=== PATIENT | male | born 1955 | race Caucasian/White ===

== ENCOUNTER → 2020-12-03 16:57 | Outpatient (CLI) | payer OTHER, SELFPAY ==
--- NOTE | 2020-12-03 17:00 | DI.RAD.S_ITS ---
PROCEDURE: XR KNEE RT 3V INDICATIONS: Bilateral hip pain, knee pain TECHNIQUE: 3 views of the knee were acquired. COMPARISON: [facility], CR, XR KNEE LT 3V, 12/03/2020, 17:32. FINDINGS: Bones: No fractures or dislocations. No suspicious bony lesions. Our orthopedic screws noted stabilizing the tibial tuberosity with evidence of healed fragmentation. Soft tissues: No joint effusion. No suspicious soft tissue calcifications. IMPRESSION: No acute findings. Internal fixation screws associated with the tibial tuberosity. No evidence of hardware failure loosening. Dictated by: Elbert Beckham M.D. on 12/04/2020 at 11:43 Approved by: Elbert Beckham M.D. on 12/04/2020 at 11:45
--- NOTE | 2020-12-03 17:00 | DI.RAD.S_ITS ---
PROCEDURE: XR SHOULDER RT MIN 2V INDICATIONS: Bilateral hip pain TECHNIQUE: 3 views of the shoulder were acquired. COMPARISON: None. FINDINGS: Bones: No fractures or dislocations. No suspicious bony lesions. Visualized ribs appear intact. Soft tissues: No suspicious soft tissue calcifications. IMPRESSION: Unremarkable right shoulder radiographs Dictated by: Elbert Beckham M.D. on 12/04/2020 at 11:50 Approved by: Elbert Beckham M.D. on 12/04/2020 at 11:51
--- NOTE | 2020-12-03 17:00 | DI.RAD.S_ITS ---
PROCEDURE: XR KNEE LT 3V INDICATIONS: Bilateral hip pain TECHNIQUE: 3 views of the knee were acquired. COMPARISON: None. FINDINGS: Bones: No fractures or dislocations. No suspicious bony lesions. Soft tissues: No joint effusion. No suspicious soft tissue calcifications. IMPRESSION: Unremarkable left knee radiographs Dictated by: Elbert Beckham M.D. on 12/04/2020 at 11:38 Approved by: Elbert Beckham M.D. on 12/04/2020 at 11:41
--- NOTE | 2020-12-03 17:00 | DI.RAD.S_ITS ---
PROCEDURE: XR HIP W PEL IF DONE NAVARRO MIN 4V INDICATIONS: Bilateral hip pain TECHNIQUE: AP pelvis with lateral view(s) of the both hip(s). COMPARISON: None. FINDINGS: Bones: No fractures or dislocations. Pelvic ring appears intact. No suspicious bony lesions. Degenerative changes noted lower lumbar spine Soft tissues: The visualized bowel gas pattern is normal. No suspicious soft tissue calcifications. IMPRESSION: Mild degenerative change lower lumbar spine. Otherwise unremarkable bilateral hip radiographs Dictated by: Elbert Beckham M.D. on 12/04/2020 at 11:42 Approved by: Elbert Beckham M.D. on 12/04/2020 at 11:43
--- NOTE | 2020-12-03 17:00 | DI.RAD.S_ITS ---
PROCEDURE: XR LUMBAR SPINE 2-3V INDICATIONS: chronic back pain TECHNIQUE: 2 views of the lumbar spine were acquired. COMPARISON: None. FINDINGS: Bones: Vertebral body height and alignment is maintained. There is disc space narrowing and sclerotic facet joints particularly noted L4-5 and L5-S1 with small anterior osteophyte. Soft tissues: Overlying bowel gas pattern is normal. No suspicious soft tissue calcifications. Atherosclerotic calcification in the abdominal aorta noted without evidence of aneurysm. Moderate fecal debris throughout the colon. IMPRESSION: Lower lumbar spine degenerative disc disease and arthropathy Moderate fecal debris throughout the colon Dictated by: Elbert Beckham M.D. on 12/04/2020 at 11:46 Approved by: Elbert Beckham M.D. on 12/04/2020 at 11:50
[2020-12-03 17:44] LABS: Hemoglobin A1C% w Est Avg Glu 8.5 % (4.0-6.0)
== END ==
PROVIDERS: PCP Family Medicine; Referring Provider Family Medicine; Visit Provider Family Medicine
DX: G89.29 Other chronic pain (principal); M25.551 Pain in right hip; M25.552 Pain in left hip; M54.5 Low back pain; E11.9 Type 2 diabetes mellitus without complications; Z79.4 Long term (current) use of insulin
CPT/HCPCS: 36415; 72100; 73030; 73522; 73562; 83036

== ENCOUNTER → 2020-12-21 15:52 | Outpatient (CLI) | payer OTHER, SELFPAY | PROVIDERS: PCP Family Medicine; Referring Provider Physician Assistant; Visit Provider Physician Assistant | DX: R30.0 Dysuria (principal) | CPT/HCPCS: 87077; 87086; 87185; 87186 ==

== ENCOUNTER 2020-12-25 07:25 | Emergency (ER) | payer OTHER, SELFPAY ==
[2020-12-25] VITALS (11 sets, daily range): BP systolic 147–183; BP diastolic 71–95; PULSE 72–86; RESP 14–18; TEMP 36.6; O2SAT 95–98; BMI 32.1
--- NOTE | 2020-12-25 07:48 | ED.GENADULT ---
HPI - General Adult General Chief complaint: Urogenital-Male Stated complaint: UTI DX 12/21, CIPRO DOESN'T SEEM TO BE HELPING Time Seen by Provider: 12/25/20 07:33 Source: patient Mode of arrival: Ambulatory Limitations: no limitations History of Present Illness HPI narrative: Patient is a 65-year-old male who was sent over from the walk-in clinic for evaluation of continued urinary symptoms. Approximately 4 days ago the patient was seen in the walk-in clinic for urinary frequency, urgency, burning. He was diagnosed with the urinary tract infection. He is placed on Cipro to take 2 times a day for a week. Today would be day 3 of his medications. He return to the walk-in clinic today because he has had continued symptoms. He states that his back discomfort in his frequency and urgency are not necessarily new nor getting worse but just have not changed. He is however somewhat nauseous today. He has felt fevers but has never actually taken his temperature. He has not thrown up. Related Data Home Medications Medication Instructions Recorded Confirmed aspirin 81 mg tablet 81 mg PO DAILY 10/16/20 12/21/20 blood-glucose meter #1 ea 10/16/20 12/21/20 multivitamin 1 tab PO QAM 10/16/20 12/21/20 pen needle, diabetic 33 gauge x #100 ea 10/16/20 12/21/2012/14 Previous Rx's Medication Instructions Recorded cholecalciferol (vitamin D3) 25 25 mcg PO DAILY #90 cap 10/16/20 mcg (1,000 unit) capsule glimepiride 4 mg tablet 4 mg PO QAM #90 tab 10/16/20 hydrochlorothiazide 12.5 mg capsule 12.5 mg PO QAM #90 cap 10/16/20 losartan 50 mg tablet 50 mg PO DAILY #90 tab 10/16/20 metformin 1,000 mg tablet 1,000 mg PO BID #180 tab 10/16/20 rosuvastatin 20 mg tablet 20 mg PO DAILY #90 tab 10/16/20 sildenafil 50 mg tablet 50 mg PO DAILY PRN #30 tab 10/16/20 zolpidem 10 mg tablet 10 mg PO BEDTIME PRN #30 tab 10/16/20 canagliflozin 300 mg tablet 300 mg PO DAILY #90 tab 11/21/20 insulin glargine U-300 conc 300 See Rx Instructions .ROUTE 12/11/20 unit/mL (1.5 mL) subcutaneous pen .COMPLEX #4.5 ml ciprofloxacin HCl 500 mg tablet 500 mg PO Q12H 7 Days #14 tab 12/22/20 potassium chloride 20 meq PO DAILY 5 Days #5 tab 12/25/20 Allergies Allergy/AdvReac Type Severity Reaction Status Date / Time Penicillins Allergy Intermediate Verified 12/21/20 14:34 Review of Systems Constitutional Constitutional: Reports fever(s) (Subjective) Cardiovascular Cardiovascular: Reports system reviewed and no additional complaints, except as documented Respiratory Respiratory: Reports system reviewed and no additional complaints, except as documented Gastrointestinal Gastrointestinal: Reports abdominal pain, Reports nausea and Denies vomiting Genitourinary Genitourinary: Reports urinary frequency, Reports urinary incontinence and Reports urinary urgency Genitourinary: Reports urinary frequency, Reports urinary incontinence and Reports urinary urgency Musculoskeletal Musculoskeletal: Reports back pain Integumentary/Breasts Skin/Breast: Reports system reviewed and no additional complaints, except as documented Neurologic Neurologic: Reports system reviewed and no additional complaints, except as documented Hematologic/Lymphatic On Anticoagulants: No Allergic/Immunologic Allergic/Immunologic: Reports system reviewed and no additional complaints, except as documented Patient History Medical History Bilateral hip pain Chronic back pain Hyperlipidemia Hypertension Vitamin D deficiency Social History Smoking Status: Never smoker Smoking Status: Never smoker alcohol intake frequency: holidays/special occasions only Substance Use Type: does not use Exam Initial Vital Signs Initial Vital Signs: Vital Signs Temperature 97.9 F 12/25/20 07:33 Pulse Rate 76 12/25/20 07:33 Respiratory Rate 18 12/25/20 07:33 Blood Pressure 160/95 H 12/25/20 07:33 Pulse Oximetry 98 12/25/20 07:33 Const General: cooperative and comfortable Limitations: mental status not altered HENMT Head: normal to inspection and normocephalic Resp Effort & Inspection: normal respiratory effort Cardio Rate: regular rate GI Inspection: non-distended Palpation: soft and tender (Suprapubic) Skin Lesions: no lesions Rashes: no rashes Neuro General: patient alert and patient awake Cognition: normal cognition Speech: speech normal Extrem General: capillary refill normal Psych Appearance: grossly normal and well kempt Course Orders Ordered: ED Orders 12/25/20 12:08 Basic Metabolic Panel Stat Discontinued Medications POTASSIUM CHLORIDE IN WATER (Potassium Cl 10 Meq/100 Ml Margarita) 10 meq in 100 mls @ 100 mls/hr IV Q1H ZEENAT Stop: 12/25/20 11:29 Last Infusion: 12/25/20 11:58 Dose: 0 mls/hr Documented by: Admin: 12/25/20 10:47 Dose: 100 mls/hr Documented by: Infusion: 12/25/20 10:44 Dose: 0 mls/hr Documented by: Admin: 12/25/20 09:43 Dose: 100 mls/hr Documented by: MELONIE Potassium Chloride (Potassium Chloride 10 Meq Tab) 30 meq PO NOW ONE Stop: 12/25/20 09:17 Last Admin: 12/25/20 09:42 Dose: 30 meq Documented by: MELONIE Vital Signs Vital signs: Vital Signs - 8 hr 12/25/20 11:30 12/25/20 12:00 12/25/20 12:30 Pulse Rate 86 83 83 Respiratory Rate 16 14 Blood Pressure 154/76 H 156/74 H 152/71 H Pulse Oximetry 95 96 95 Medical Decision Making Medical Records Medical records reviewed: Yes I reviewed the patient's medical records. Lab Data Lab results reviewed: Yes I reviewed the patient's lab results. Result diagrams: 12/25/20 07:36 12/25/20 12:08 Labs: Lab Results 12/25/20 12/25/20 12/25/20 Range/Units 07:36 07:36 08:40 WBC 11.7 H (4.5-11.0) X10^3/uL RBC 4.23 L (4.5-5.9) X10^6/uL Hgb 12.1 L (13.5-17.5) g/dL Hct 35.1 L (41-53) % MCV 83.0 (80-100) fL MCH 28.7 (26-34) PG MCHC 34.6 (30-36) % RDW 13.7 (11.6-14.8) % Plt Count 343 (150-400) X10^3/uL Neut % (Auto) 81.7 H (50-75) % Lymph % (Auto) 8.3 L (25-40) % Jerome % (Auto) 9.0 (3-14) % Eos % (Auto) 0.6 L (2-4) % Baso % (Auto) 0.4 (0-2) % Neut # (Auto) 9500 H (3632-8319) /uL Lymph # (Auto) 1000 L (0469-4122) /uL Jerome # (Auto) 1000 H (0-900) /uL Eos # (Auto) 100 (0-450) /uL Baso # (Auto) 0 (0-100) /uL Sodium 118 L* 120 L (137-145) mmol/L Potassium 2.8 L 2.6 L* (3.4-5.1) mmol/L Chloride 82 L 82 L (98-107) mmol/L Carbon Dioxide 24 29 (22-32) mmol/L BUN 9 10 (9-20) mg/dL Creatinine 0.60 L 0.58 L (0.66-1.25) mg/dL Estimated GFR > 60.0 > 60.0 (>60) mL/min BUN/Creatinine Ratio 15.0 17.2 (6-22) Glucose 140 H 127 H (80-110) mg/dL Calcium 8.3 L 8.3 L (8.4-10.2) mg/dL 05/27/21 Range/Units 12:08 WBC (4.5-11.0) X10^3/uL RBC (4.5-5.9) X10^6/uL Hgb (13.5-17.5) g/dL Hct (41-53) % MCV (80-100) fL MCH (26-34) PG MCHC (30-36) % RDW (11.6-14.8) % Plt Count (150-400) X10^3/uL Neut % (Auto) (50-75) % Lymph % (Auto) (25-40) % Jerome % (Auto) (3-14) % Eos % (Auto) (2-4) % Baso % (Auto) (0-2) % Neut # (Auto) (6020-7618) /uL Lymph # (Auto) (5686-8892) /uL Jerome # (Auto) (0-900) /uL Eos # (Auto) (0-450) /uL Baso # (Auto) (0-100) /uL Sodium 126 L (137-145) mmol/L Potassium 3.2 L (3.4-5.1) mmol/L Chloride 86 L (98-107) mmol/L Carbon Dioxide 30 (22-32) mmol/L BUN 10 (9-20) mg/dL Creatinine 0.72 (0.66-1.25) mg/dL Estimated GFR > 60.0 (>60) mL/min BUN/Creatinine Ratio 13.9 (6-22) Glucose 148 H (80-110) mg/dL Calcium 8.7 (8.4-10.2) mg/dL MDM Narrative Medical decision making narrative: Patient arrived with similar symptoms that he had a couple days ago. Review of his urine culture shows that the medicine that he is currently on should be appropriate. We did perform a bladder scan which showed approximately 1000 cc. A Petty catheter was placed and ultimately resulted in approximately 4500 cc of urine. Patient states that he did feel better afterwards. Patient was hyponatremic and also hypokalemic. Upon further evaluation it appears that the patient has been drinking a tremendous amount of water recently to try to continue to urinate in to help his symptoms. I suspect that this is the reason that he was hyponatremic. He was kept in the emergency department. His potassium was replaced. He was given salt containing foods and resultant sodium increased to 126. His potassium increased as well. Patient would like to go home. We did discuss the risk of this given his sodium but I have a high suspicion that it was water that he has been drinking which cause the decrease. I did discuss the case with his primary provider who ordered labs for the patient tomorrow to recheck the sodium and potassium. Will also send home with oral potassium. Patient was informed of the need for the lab drawn tomorrow he expressed understanding. He was given strict return precautions. He will also follow-up with his primary doctor regarding the urinary retention. We will keep him on his current course of antibiotics. He expressed understanding and agreement this plan Discharge Plan Departure Patient Disposition: Home Clinical Impression: Acute urinary retention, Urinary tract infection, Hyponatremia, Hypokalemia Instructions: How to Care for Your Petty Catheter -- Male, DI for Urinary Retention in Men Activity Restrictions/Additional Instructions: Continue with the antibiotics that you are taking. Your primary doctor ordered labs for further evaluation of your sodium and potassium. You can come to the hospital tomorrow sometime before noon and have these drawn. You should also be receiving a call from your primary doctor's office for a follow-up. Return to the emergency department for any new or worsening symptoms. Prescriptions: New potassium chloride 20 mEq tablet extended release 20 meq PO DAILY 5 Days Qty: 5 RF: 0 No Action Invokana 300 mg tablet 300 mg PO DAILY Qty: 90 RF: 3 insulin glargine U-300 conc [[place] SoloStar U-300 Insulin] 300 unit/mL (1.5 mL) insulin pen See Rx Instructions .ROUTE .COMPLEX Qty: 4.5 RF: 0 ciprofloxacin HCl 500 mg tablet 500 mg PO Q12H 7 Days Qty: 14 RF: 0 aspirin 81 mg tablet 81 mg PO DAILY RF: 0 multivitamin Tablet 1 tab PO QAM RF: 0 (DME) blood-glucose meter Kit See Rx Instructions .ROUTE .MEDSUPPLY Qty: 1 RF: 0 (DME) Comfort EZ Pen [place] 33 gauge x 5/16 needle See Rx Instructions .ROUTE .MEDSUPPLY Qty: 100 RF: 0 cholecalciferol (vitamin D3) 25 mcg (1,000 unit) capsule 25 mcg PO DAILY Qty: 90 RF: 3 glimepiride 4 mg tablet 4 mg PO QAM Qty: 90 RF: 3 hydrochlorothiazide 12.5 mg capsule 12.5 mg PO QAM Qty: 90 RF: 3 losartan 50 mg tablet 50 mg PO DAILY Qty: 90 RF: 3 metformin 1,000 mg tablet 1,000 mg PO BID Qty: 180 RF: 3 rosuvastatin 20 mg tablet 20 mg PO DAILY Qty: 90 RF: 3 sildenafil 50 mg tablet 50 mg PO DAILY PRN (Reason: sexual activity) Qty: 30 RF: 3 zolpidem 10 mg tablet 10 mg PO BEDTIME PRN (Reason: insomnia) Qty: 30 RF: 3 Referrals: Jeffery Schaefer MD [Primary Care Provider] -
[2020-12-25 07:59] LABS: Add Manual Diff / Slide Review NO; Basophils Absolute Auto 0 /uL (0-100); Basophils Percent Auto 0.4 % (0-2); Eosinophils Absolute Auto 100 /uL (0-450); Eosinophils Percent Auto 0.6 % (2-4); Hematocrit 35.1 % (41-53); Hemoglobin 12.1 g/dL (13.5-17.5); Lymphocytes Absolute Auto 1000 /uL (1100-4500); Lymphocytes Percent Auto 8.3 % (25-40); Mean Corpuscular HGB Conc 34.6 % (30-36); Mean Corpuscular Hemoglobin 28.7 PG (26-34); Monocytes Absolute Auto 1000 /uL (0-900); Neutrophils Absolute Auto 9500 /uL (1500-7000); Neutrophils Percent Auto 81.7 % (50-75); Platelet Count 343 X10^3/uL (150-400); Red Blood Cell Count 4.23 X10^6/uL (4.5-5.9); Red Cell Distribution Width 13.7 % (11.6-14.8); White Blood Cell Count 11.7 X10^3/uL (4.5-11.0)
[2020-12-25 08:00] LABS: HEMOLYSIS < 15 (0-50); Potassium 2.8 mmol/L (3.4-5.1)
[2020-12-25 08:01] LABS: Blood Urea Nitrogen 9 mg/dL (9-20); Calcium 8.3 mg/dL (8.4-10.2); Carbon Dioxide 24 mmol/L (22-32); Chloride 82 mmol/L (98-107); Estimated Glomerular Filt Rate > 60.0 mL/min (>60); Glucose 140 mg/dL (80-110)
[2020-12-25 08:07] LABS: Sodium 118 mmol/L (137-145)
[2020-12-25 09:04] LABS: BUN Creatinine Ratio 17.2 (6-22); Blood Urea Nitrogen 10 mg/dL (9-20); Calcium 8.3 mg/dL (8.4-10.2); Carbon Dioxide 29 mmol/L (22-32); Chloride 82 mmol/L (98-107); Estimated Glomerular Filt Rate > 60.0 mL/min (>60); Glucose 127 mg/dL (80-110); HEMOLYSIS < 15 (0-50); Sodium 120 mmol/L (137-145)
[2020-12-25 09:11] LABS: Potassium 2.6 mmol/L (3.4-5.1)
[2020-12-25] MEDS: POTASSIUM CHLORIDE 10 MEQ TAB 30 MEQ PO (09:42)
[2020-12-25] MEDS: POTASSIUM CHLORIDE IN WATER 10 MEQ/100 ML PIGGYBACK 100 MEQ IV ×2 (09:43→10:47)
--- NOTE | 2020-12-25 10:16 | PC.NURSE ---
pt voided 300 cc of clear urine prior to bladder scan. bladder scan showed >999 cc of urine. placed conn cath and 2000 cc immediately drained out, conn bag emptied. additional 2250 cc of clear urine emptied out of bag. total of 4550cc so far.
--- NOTE | 2020-12-25 12:00 | PC.NURSE ---
Flushed left hand IV after potassium infusion and found bruising and small infiltration. No redness noted. mild pain at site. IV discontinued.
[2020-12-25 12:27] LABS: BUN Creatinine Ratio 13.9 (6-22); Blood Urea Nitrogen 10 mg/dL (9-20); Calcium 8.7 mg/dL (8.4-10.2); Carbon Dioxide 30 mmol/L (22-32); Chloride 86 mmol/L (98-107); Estimated Glomerular Filt Rate > 60.0 mL/min (>60); Glucose 148 mg/dL (80-110); HEMOLYSIS < 15 (0-50); Potassium 3.2 mmol/L (3.4-5.1); Sodium 126 mmol/L (137-145)
== END 2020-12-25 13:26 | disposition home or self-care (01) ==
PROVIDERS: Emergency Provider Emergency Medicine; PCP Family Medicine
DX: R33.8 Other retention of urine (principal); N39.0 Urinary tract infection, site not specified; E87.1 Hypo-osmolality and hyponatremia; E87.6 Hypokalemia; R50.9 Fever, unspecified; R11.0 Nausea; M54.9 Dorsalgia, unspecified
CPT/HCPCS: 36415; 51702; 51798; 80048; 85025; 87040; 96365; 96366; 99284

== ENCOUNTER → 2020-12-26 07:40 | Outpatient (CLI) | payer OTHER, SELFPAY ==
[2020-12-26 08:07] LABS: Add Manual Diff / Slide Review NO; Basophils Absolute Auto 100 /uL (0-100); Eosinophils Absolute Auto 100 /uL (0-450); Eosinophils Percent Auto 1.5 % (2-4); Hematocrit 38.6 % (41-53); Hemoglobin 13.2 g/dL (13.5-17.5); Lymphocytes Absolute Auto 1500 /uL (1100-4500); Mean Corpuscular HGB Conc 34.1 % (30-36); Mean Corpuscular Volume 85.1 fL (80-100); Monocytes Absolute Auto 1000 /uL (0-900); Monocytes Percent Auto 10.9 % (3-14); Neutrophils Absolute Auto 6600 /uL (1500-7000); Neutrophils Percent Auto 70.6 % (50-75); Platelet Count 449 X10^3/uL (150-400); Red Blood Cell Count 4.54 X10^6/uL (4.5-5.9); White Blood Cell Count 9.4 X10^3/uL (4.5-11.0)
[2020-12-26 08:08] LABS: Alanine Aminotransferase 59 IU/L (<50); Albumin 3.9 g/dL (3.5-5.0); Albumin Globulin Ratio 1.1 (1.0-2.8); Alkaline Phosphatase 90 U/L (38-126); Aspartate Aminotransferase 38 IU/L (17-59); BUN Creatinine Ratio 17.9 (6-22); Bilirubin Total 0.4 mg/dL (0.2-1.3); Blood Urea Nitrogen 15 mg/dL (9-20); Calcium 9.2 mg/dL (8.4-10.2); Carbon Dioxide 30 mmol/L (22-32); Chloride 98 mmol/L (98-107); Estimated Glomerular Filt Rate > 60.0 mL/min (>60); Globulin 3.5 g/dL (1.7-4.1); Glucose 178 mg/dL (80-110); HEMOLYSIS < 15 (0-50); Potassium 3.6 mmol/L (3.4-5.1); Sodium 139 mmol/L (137-145); Total Protein 7.4 g/dL (6.3-8.2)
[2020-12-26 08:17] LABS: Hemoglobin A1C% w Est Avg Glu 8.5 % (4.0-6.0)
[2020-12-26 08:39] LABS: Prostate Specific Antigen Scrn 31.6 ng/mL (0.1-4.0)
== END ==
PROVIDERS: PCP Family Medicine; Referring Provider Family Medicine; Visit Provider Family Medicine
DX: E87.1 Hypo-osmolality and hyponatremia (principal); E87.6 Hypokalemia; N39.0 Urinary tract infection, site not specified; E11.9 Type 2 diabetes mellitus without complications; Z79.4 Long term (current) use of insulin; Z12.5 Encounter for screening for malignant neoplasm of prostate
CPT/HCPCS: 36415; 80053; 83036; 85025; G0103

== ENCOUNTER → 2021-02-28 10:30 | Outpatient (CLI) | payer OTHER, SELFPAY ==
[2021-02-28 12:17] LABS: Prostate Specific Antigen 2.59 ng/mL (0.10-4.00)
== END ==
PROVIDERS: PCP Family Medicine; Referring Provider Specialist; Visit Provider Specialist
DX: R39.9 Unspecified symptoms and signs involving the genitourinary system (principal)
CPT/HCPCS: 36415; 84153

== ENCOUNTER → 2021-03-18 20:02 | Outpatient (CLI) | payer OTHER, SELFPAY ==
[2021-03-18 20:30] LABS: COVID19 -Nasal RAPID Negative (Negative)
== END ==
PROVIDERS: PCP Family Medicine; Visit Provider Nurse Practitioner
DX: Z20.822 Contact with and (suspected) exposure to COVID-19 (principal)
CPT/HCPCS: 87635

== ENCOUNTER → 2021-06-02 17:55 | Outpatient (CLI) | payer OTHER, SELFPAY ==
[2021-06-02 18:47] LABS: COVID19 -Nasal RAPID Negative (Negative)
== END ==
PROVIDERS: PCP Family Medicine; Referring Provider Nurse Practitioner Family; Visit Provider Nurse Practitioner Family
DX: Z87.440 Personal history of urinary (tract) infections (principal); Z20.822 Contact with and (suspected) exposure to COVID-19
CPT/HCPCS: 87077; 87086; 87186; 87635

== ENCOUNTER → 2021-06-03 10:48 | Outpatient (CLI) | payer OTHER, SELFPAY ==
[2021-06-03 12:02] LABS: Hemoglobin A1C% w Est Avg Glu 7.6 % (4.0-6.0)
[2021-06-03 12:49] LABS: Alanine Aminotransferase 21 IU/L (<50); Albumin 4.1 g/dL (3.5-5.0); Albumin Globulin Ratio 1.4 (1.0-2.8); Alkaline Phosphatase 70 U/L (38-126); Aspartate Aminotransferase 18 IU/L (17-59); BUN Creatinine Ratio 15.5 (6-22); Bilirubin Total 1.1 mg/dL (0.2-1.3); Blood Urea Nitrogen 13 mg/dL (9-20); Carbon Dioxide 21 mmol/L (22-32); Chloride 96 mmol/L (98-107); Cholesterol 112 mg/dL (140-199); Estimated Glomerular Filt Rate > 60.0 mL/min (>60); Globulin 2.9 g/dL (1.7-4.1); Glucose 108 mg/dL (80-110); HDL Cholesterol 54 mg/dL (40-60); HEMOLYSIS < 15 (0-50); LDL Cholesterol Calculated 40 mg/dL (<100); Potassium 3.6 mmol/L (3.4-5.1); Sodium 133 mmol/L (137-145); Triglycerides 92 mg/dL (35-150)
[2021-06-03 13:20] LABS: Prostate Specific Antigen 12.6 ng/mL (0.10-4.00)
== END ==
PROVIDERS: PCP Family Medicine; Referring Provider Specialist; Visit Provider Specialist
DX: E11.9 Type 2 diabetes mellitus without complications (principal); E78.5 Hyperlipidemia, unspecified; I10 Essential (primary) hypertension; R97.20 Elevated prostate specific antigen [PSA]
CPT/HCPCS: 36415; 80053; 80061; 83036; 84153

== ENCOUNTER → 2021-06-11 17:18 | Outpatient (CLI) | payer OTHER, SELFPAY ==
[2021-06-13 09:48] LABS: Hepatitis B Surf Ab Qualitativ Reactive (.)
== END ==
PROVIDERS: PCP Family Medicine; Referring Provider Family Medicine; Visit Provider Family Medicine
DX: E11.9 Type 2 diabetes mellitus without complications (principal)
CPT/HCPCS: 36415; 86706

== ENCOUNTER → 2021-10-27 17:14 | Outpatient (CLI) | payer OTHER, SELFPAY | PROVIDERS: PCP Family Medicine; Referring Provider Specialist; Visit Provider Specialist | DX: Z12.11 Encounter for screening for malignant neoplasm of colon (principal) | CPT/HCPCS: 36415; 84153 ==

== ENCOUNTER → 2021-12-15 09:05 | Outpatient (CLI) | payer OTHER, SELFPAY ==
[2021-12-15 11:21] LABS: COVID19 -Nasal RAPID Negative (Negative)
== END ==
PROVIDERS: PCP Family Medicine; Visit Provider Surgery
DX: Z20.822 Contact with and (suspected) exposure to COVID-19 (principal); Z01.812 Encounter for preprocedural laboratory examination
CPT/HCPCS: 87635; C9803

== ENCOUNTER 2021-12-16 08:00 | Day surgery (SDC) | payer OTHER, SELFPAY ==
--- NOTE | 2021-12-16 | PATH_ITS ---
[facility] Accession Number: [id number] . 01 Material submitted: . colon - TRANSERSE COLON POLYP . 01 Diagnosis: Transverse Colon, Polyp, Biopsy: Tubular adenoma. MRV 12/18/2021 1115 Local . 01 Electronically signed: . Lanny Ibrahim MD, Pathologist NPI- [id number] . 01 Gross description: . TRANSERSE COLON POLYP: Received in formalin are multiple fragment(s) of epperson, soft tissue measuring 2.7 x 1.5 x 0.1 cm in aggregate submitted entirely in 1 cassette(s) /CPE 12/17/2021 0830 Local . 01 Pathologist provided ICD-10: D12.3 . 01 CPT . 887518 Specimen Comment: A courtesy copy of this report has been sent to [phone] Performed at: 01 [facility] [address] [place] [address], [place], [place] [id number] MD aPtrick Victoria MD Phone: [phone]
[2021-12-16 08:13] VITALS: BMI 31.1
[2021-12-16] MEDS: SODIUM CHLORIDE 0.9% 1,000 ML 70 ML IV (08:24)
[2021-12-16 08:31] VITALS: BP 144/72; PULSE 80; RESP 12; TEMP 36.3; O2SAT 95
--- NOTE | 2021-12-16 09:05 | PM.HP.1 ---
History of Present Illness History of Present Illness Chief complaint: DX COLONOSCOPY Narrative: Patient is a very pleasant 66-year-old male who presented for follow-up colonoscopy. His last colonoscopy was 8 or 9 years ago performed in [facility]. Patient History Medical History (Updated 11/03/21 @ 08:34 by Matthew Kraft MD) Bilateral hip pain BPH w urinary obs/LUTS Chronic back pain Diabetes mellitus Encounter for screening for malignant neoplasm of colon History of urinary retention History of UTI Hyperlipidemia Hypertension Retention of urine Vitamin D deficiency Family & Social History Social History: household members significant other Tobacco & Substance use: Smoking Status Never smoker alcohol intake current alcohol intake frequency holiday/special occasion Substance Use Type does not use Meds Home Medications and Allergies Home Medications Medication Instructions Recorded Confirmed Type aspirin 81 mg tablet 81 mg PO DAILY 10/16/20 12/16/21 History cholecalciferol (vitamin D3) 25 25 mcg PO DAILY #90 cap 10/16/20 11/03/21 Rx mcg (1,000 unit) capsule multivitamin 1 tab PO QAM 10/16/20 12/16/21 History pen needle, diabetic 33 gauge x #100 ea 10/16/20 11/03/21 History 5/16 (Comfort EZ Pen [place]) lidocaine 5 % topical ointment 1 applic TOPICAL BID PRN #30 g 01/02/21 11/03/21 Rx tamsulosin 0.4 mg capsule 0.4 mg PO .At HS and a.m. #180 cap 01/15/21 12/16/21 Rx blood-glucose meter #1 ea 06/11/21 11/03/21 Rx semaglutide 7 mg tablet 7 mg PO DAILY #90 tab 06/11/21 12/16/21 Rx sildenafil 50 mg tablet 50 mg PO DAILY PRN #30 tab 06/11/21 12/16/21 Rx glimepiride 4 mg tablet 4 mg PO QAM #90 tab 09/22/21 12/16/21 Rx insulin glargine U-300 conc 300 45 unit (0.15 mL) SUBCUT BID #9 ml 09/22/21 12/16/21 Rx unit/mL (1.5 mL) subcutaneous pen ([place] SoloStar U-300 Insulin) losartan 50 mg tablet 50 mg PO DAILY #90 tab 09/22/21 12/16/21 Rx rosuvastatin 20 mg tablet 20 mg PO DAILY #90 tab 09/22/21 12/16/21 Rx hydrochlorothiazide 12.5 mg capsule See Rx Instructions .ROUTE 10/05/21 12/16/21 Rx .COMPLEX #90 cap metformin 1,000 mg tablet See Rx Instructions .ROUTE 10/19/21 12/16/21 Rx .COMPLEX #180 tab zolpidem 10 mg tablet 10 mg PO BEDTIME PRN #30 tab 11/06/21 12/16/21 Rx blood sugar diagnostic (OneTouch #100 ea 11/23/21 Rx Verio test strips) empagliflozin 25 mg tablet See Rx Instructions .ROUTE 12/10/21 12/16/21 Rx (Jardiance) .COMPLEX #90 tablet Allergies Allergy/AdvReac Type Severity Reaction Status Date / Time Penicillins Allergy Intermediate Verified 11/03/21 08:10 Review of Systems Review of Systems ROS: Yes All systems reviewed with the patient and are negative except as otherwise documented Exam Vital Signs (past 8 hours): - 12/16/21 08:31 Temperature 97.3 F L Pulse Rate 80 Respiratory Rate 12 Blood Pressure 144/72 H Pulse Oximetry 95 Oxygen Delivery Method Room Air Const General: cooperative, healthy appearing, comfortable, well developed and well groomed HENOR Head: normocephalic and atraumatic Resp Effort & Inspection: normal respiratory effort and able to speak in complete sentences Cardio Rate: regular rate Rhythm: regular rhythm Extrem General: normal to inspection and no clubbing, cyanosis or edema Assessment & Plan Assessment & Plan narrative: 1. Colonoscopy today, further recommendations to follow Time Spent With Patient Critical Care time: I spent a total of [] minutes of critical care time on this patient's care today; this time is exclusive of procedural time.
[2021-12-16 09:45] VITALS: BP 112/65; PULSE 67; RESP 17; TEMP 36.5; O2SAT 96
--- NOTE | 2021-12-16 09:48 | PM.OP.COLON ---
Operative Date/Time/Diagnoses Date of procedure: 12/16/21 Time of procedure: 09:13 Procedure Notes Procedure in detail: Surgeon: Krista Whitlock DO Procedure: Colonoscopy with piecemeal polypectomy Preoperative diagnosis: 1. Personal history colon polyps, last colonoscopy 7 or 8 years ago Postoperative diagnosis: 1. Transverse colon polyp 12 mm removed piecemeal polypectomy 2. Poor prep 3. Grade 2 internal hemorrhoids Medications: Monitored anesthesia care Preanesthesia Assessment An H and P was performed/updated and the Px?s ASA class is 3. The procedure was discussed in detail with the patient. The potential risks and complications including infection, bleeding, missed lesions, perforation, need for surgery in case of perforation, prolonged hospital stay, and were explained. A brief question and answer period was allotted and once all questions were answered, informed consent was obtained. The patient was brought back to the procedure room and placed on standard monitoring. The patient?s vital signs were monitored continuously throughout the entire procedure. Prior to starting, a timeout was performed to confirm the patient?s identity, allergies, medications, and procedure. Procedure in detail The patient was placed in left lateral decubitus position and once adequate sedation was obtained a ALICIA was performed. The digital rectal examination did not reveal any palpable lesions. The tip of the colonoscope was placed in the anal canal and advanced with some difficulty due to redundant colon and poor preparation all the way to the cecum which was identified by the appendiceal orifice and the ileocecal valve. Careful examination of all garcia of the colon was performed with irrigation of any residual stool. A flat 12 mm polyp was removed from the transverse colon with piecemeal technique cold snare. The patient tolerated the procedure well and will be brought back to the recovery area to be discharged once criteria are met. The prep was judged to be for and not adequate to identify polyps less than 6 mm. The withdrawal time was 8min. Complications There were no complications and estimated blood loss was minimal. Recommendations: Resume previous diet Continue outPx medications Follow up pathology results Repeat colonoscopy be scheduled due to poor preparation An emergency contact number was given to the patient for any complications related to the procedure
[2021-12-16 09:50] VITALS: BP 123/61; PULSE 67; RESP 11; O2SAT 96
[2021-12-16 09:55] VITALS: BP 125/68; PULSE 68; RESP 17; TEMP 36.7; O2SAT 99
[2021-12-16 10:20] VITALS: BP 132/72; PULSE 63; RESP 16; TEMP 37; O2SAT 96
== END 2021-12-16 10:25 | disposition home or self-care (01) ==
PROVIDERS: PCP Family Medicine; Referring Provider Student in an Organized Health Care Education/Training Program; Visit Provider Student in an Organized Health Care Education/Training Program
PROC: 0DJD8ZZ Inspection of Lower Intestinal Tract, Via Natural or Artificial Opening Endoscopic (ICD-10-PCS; CPT 45378; principal; 2021-12-16 09:00)
DX: Z12.11 Encounter for screening for malignant neoplasm of colon (principal); Z86.010 Personal history of colon polyps; E11.9 Type 2 diabetes mellitus without complications; I10 Essential (primary) hypertension; E78.5 Hyperlipidemia, unspecified; Z79.4 Long term (current) use of insulin; Z79.84 Long term (current) use of oral hypoglycemic drugs; K64.1 Second degree hemorrhoids; D12.3 Benign neoplasm of transverse colon
CPT/HCPCS: 45385; J2704

== ENCOUNTER → 2022-04-09 08:41 | Outpatient (CLI) | payer OTHER, SELFPAY ==
[2022-04-09 09:44] LABS: Add Manual Diff / Slide Review NO; Basophils Absolute Auto 0 /uL (0-100); Basophils Percent Auto 0.8 % (0-2); Eosinophils Absolute Auto 100 /uL (0-450); Hematocrit 42.8 % (41-53); Hemoglobin 14.4 g/dL (13.5-17.5); Lymphocytes Absolute Auto 1100 /uL (1100-4500); Mean Corpuscular HGB Conc 33.7 % (30-36); Mean Corpuscular Hemoglobin 28.9 PG (26-34); Mean Corpuscular Volume 85.7 fL (80-100); Monocytes Absolute Auto 400 /uL (0-900); Monocytes Percent Auto 7.4 % (3-14); Neutrophils Absolute Auto 4000 /uL (1500-7000); Neutrophils Percent Auto 69.8 % (50-75); Platelet Count 222 X10^3/uL (150-400); Red Cell Distribution Width 13.3 % (11.6-14.8); White Blood Cell Count 5.7 X10^3/uL (4.5-11.0)
[2022-04-09 10:03] LABS: Hemoglobin A1C% w Est Avg Glu 6.9 % (4.0-6.0)
[2022-04-09 10:13] LABS: Alanine Aminotransferase 30 IU/L (<50); Albumin 4.3 g/dL (3.5-5.0); Albumin Globulin Ratio 1.3 (1.0-2.8); Alkaline Phosphatase 65 U/L (38-126); Aspartate Aminotransferase 24 IU/L (17-59); BUN Creatinine Ratio 23.5 (6-22); Bilirubin Total 0.6 mg/dL (0.2-1.3); Blood Urea Nitrogen 16 mg/dL (9-20); Calcium 9.1 mg/dL (8.4-10.2); Carbon Dioxide 25 mmol/L (22-32); Chloride 102 mmol/L (98-107); Cholesterol 120 mg/dL (140-199); Estimated Glomerular Filt Rate > 60 mL/min (>60); Globulin 3.3 g/dL (1.7-4.1); Glucose 91 mg/dL (80-110); HDL Cholesterol 34 mg/dL (40-60); HEMOLYSIS < 15 (0-50); LDL Cholesterol Calculated 62 mg/dL (<100); Sodium 138 mmol/L (137-145); Total Protein 7.6 g/dL (6.3-8.2); Triglycerides 119 mg/dL (35-150)
[2022-04-09 10:34] LABS: Creatinine Urine Random 60.6 mg/dL
[2022-04-09 10:39] LABS: Microalbumin Urine Random < 0.6 mg/dL (0-1.6)
[2022-04-09 11:27] LABS: Vitamin D 25 Hydroxy (D3) 58.6 ng/mL (30.0-100.0)
== END ==
PROVIDERS: Family Provider Family Medicine; PCP Family Medicine; Referring Provider Family Medicine; Visit Provider Family Medicine
DX: E11.9 Type 2 diabetes mellitus without complications (principal); E55.9 Vitamin D deficiency, unspecified; Z79.4 Long term (current) use of insulin; E78.2 Mixed hyperlipidemia; I10 Essential (primary) hypertension; N13.8 Other obstructive and reflux uropathy; N40.1 Benign prostatic hyperplasia with lower urinary tract symptoms
CPT/HCPCS: 36415; 80053; 80061; 82043; 82306; 82570; 83036; 85025

== ENCOUNTER 2022-04-20 08:15 | Outpatient (RCR) | payer OTHER, SELFPAY ==
--- NOTE | 2022-01-26 18:03 | PT.OIE ---
Current Diagnoses Other chronic pain (01/26/22) Pain in right shoulder (01/26/22) Pain in right hip (01/26/22) Pain in left hip (01/26/22) Low back pain, unspecified (01/26/22) Past Medical History (Last Updated 11/03/21 @ 08:34 by Matthew Kraft MD) Bilateral hip pain BPH w urinary obs/LUTS Chronic back pain Diabetes mellitus Encounter for screening for malignant neoplasm of colon History of urinary retention History of UTI Hyperlipidemia Hypertension Retention of urine Vitamin D deficiency Visit Care Team Role Provider Type Jeffery Schaefer MD Attending Provider Physician Family Provider Primary Care Provider Referring Provider Specialty: Family Practice Address: [address] [place] [address] Email: [email or web address] Physical Therapy Initial Evaluation PT-OP-A Visit Information Start: 01/25/22 16:56 Freq: Status: Active Protocol: Document 01/26/22 12:59 SAK (Rec: 01/26/22 13:38 SAK [id number]) Out-Patient Physical Therapy Visit Information Visit Information Visit Type Initial Evaluation Visit Start Time 13:00 Visit Stop Time 14:00 Total Visit Minutes 60 Visit Number 1 Evaluation Information Evaluation Date 01/26/22 PT-OP-B Current Condition Start: 01/25/22 16:56 Freq: Status: Active Protocol: Document 01/26/22 12:59 SAK (Rec: 01/26/22 13:38 SAK [id number]) Current Condition History of Current Condition Onset Date 1 1/2 years Current Complaints right shoulder and hip pain, left hand/fingers History of Current Condition No known accident, right hand dominant. No known injury. 4 months ago trigger finger left hand 3rd and 4th digits. 1 1/2 years ago right shoulder and hip for no known reason. Rides an exercise bike 45 min per day, walks 2-3 days per week about a mile. Daily use of heat for right shoulder pain. 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 Prior Treatments and Tests chiropractic for hip and back, short term relief aspirin, Tylenol. 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, open a jar be able to reach overhead and behind his back be able to walk with minimal to no pain in right hip and low back Prior Functional Status Baseline Function- ADL's Modified Independent Baseline Function- Mobility Modified Independent Baseline Function- Gait independnt no device Baseline Function- Work/School [employer] no difficulty Current Functional Impairments (Reported) Functional Limitations- ADL's painful Functional Limitations- Mobility/Gait painful Functional Limitations- Work/School painful PT-OP-C Subjective Start: 01/25/22 16:56 Freq: Status: Active Protocol: Document 01/27/22 12:59 [facility] (Rec: 01/27/22 18:03 [facility] [id number]) Patient Questionnaires Quick Dash- Upper Extremity Quick Dash UE Score 20 OP-PT Pain Assessment Pain Assessment Grid Paper Pain Assessment Grid Completed Yes Location Left Finger Pain Location Details MCP left 3rd and 4th digits Intensity 4 right hip Intensity 3 right shoulder Intensity 4 Pain Behaviors Pain Behaviors Facial Grimacing,Wincing PT-OP-G Mobility & Gait Start: 01/25/22 16:56 Freq: Status: Active Protocol: Document 01/27/22 12:59 [facility] (Rec: 01/27/22 18:03 [facility] [id number]) OP Gait Assessment Gait Gait Assistance Required: Independent Gait Deviations General Gait Pattern Antalgic Stair Climbing Evaluation Evaluation Level of Assist On Stairs Independent Technique/Endurance Stair Climbing Technique Step Over Step PT-OP-H Neuro Start: 01/25/22 16:56 Freq: Status: Active Protocol: Document 01/27/22 12:59 [facility] (Rec: 01/27/22 18:03 [facility] [id number]) Sensation Evaluation Gross Sensation Gross Sensation WNL Comments Summary Comments denies N/T PT-OP-J Posture/Palpation/Skin Start: 01/25/22 16:56 Freq: Status: Active Protocol: Document 01/27/22 12:59 [facility] (Rec: 01/27/22 18:03 [facility] [id number]) Posture Evaluation Position Standing Head/C-Spine Posture Forward Head T-Spine Posture Increased Kyphosis L-Spine Posture Increased Lordosis Shoulder Posture (L) Rounded,(R) Rounded Scapula Posture (L) Protracted,(R) Protracted Arm Posture (L) Internally Rotated,(R) Internally Rotated Hip Posture (L) Externally Rotated,(R) Externally Rotated PT-OP-K Range of Motion Start: 01/25/22 16:56 Freq: Status: Active Protocol: Document 01/26/22 12:59 [facility] (Rec: 01/26/22 13:38 [facility] [id number]) Cervical Spine Range of Motion Cervical Spine Active Testing Position Sitting Flexion 50 Extension 10 Rotation Left 70 Rotation Right 70 Lateral Flexion Left 20 Lateral Flexion Right 20 ROM Limitations Soft Tissue Tightness Lumbar Spine Range of Motion Lumbar Spine Active ROM Limitations Soft Tissue Tightness Comments mod decrease all motions Shoulder Goniometric Range of Motion Shoulder Right Shoulder ROM WFL No Testing Position Sitting Flexion 110 Extension 12 Abduction 105 External Rotation at 45 degrees 55 Abduction Internal Rotation Behind Back (text) L1 Left Active Shoulder ROM WFL Yes Finger Goniometric Range of Motion Finger ROM Limitations Finger ROM Limitations Pain Comments left 3rd and 4th MCP tenderness , limited into flexion by 50% Hip Goniometric Range of Motion Hip Right Flexion w/Knee Flexed 100 Straight Leg Raise 45 Extension 5 Abduction 40 Internal Rotation 30 External Rotation 45 Left Flexion w/Knee Flexed 100 Straight Leg Raise 50 Extension 5 Abduction 35 Internal Rotation 15 External Rotation 50 Hip ROM Limitations Hip ROM Limitations Soft Tissue Tightness Knee Goniometric Range of Motion Knee manjula Knee ROM WFL Yes PT-OP-M Strength Start: 01/25/22 16:56 Freq: Status: Active Protocol: Document 01/27/22 12:59 [facility] (Rec: 01/27/22 18:03 [facility] [id number]) Shoulder Strength Shoulder Manual Muscle Testing Right Flexion 4- Good- Extension 4 Good Abduction (C5) 4- Good- External Rotation 4- Good- Internal Rotation 4- Good- Left Flexion 5 Normal Extension 5 Normal Abduction (C5) 5 Normal External Rotation 4+ Good+ Internal Rotation 4+ Good+ Elbow/Forearm Strength Elbow and Forearm Manual Muscle Testing manjula Flexion (C6) 5 Normal Extension (C7) 5 Normal Finger/Thumb Strength Finger Manual Muscle Testing left 3rd and 4th Comments painful and strength 3+/5 Hip Strength Hip Manual Muscle Testing Right Flexion (L2) 4- Good- Extension (S1) 4- Good- Abduction 4- Good- External Rotation 4- Good- Internal Rotation 4- Good- Left Flexion (L2) 4 Good Extension (S1) 4 Good Abduction 4 Good External Rotation 4 Good Internal Rotation 4 Good Knee Strength Knee Manual Muscle Testing Right Flexion (S2) 4 Good Extension (L3) 4 Good Left Flexion (S2) 5 Normal Extension (L3) 5 Normal PT-OP-Q Treatments Start: 01/25/22 16:56 Freq: Status: Active Protocol: Document 01/27/22 12:59 [facility] (Rec: 01/27/22 18:03 [facility] [id number]) Self-Care/Home Management Treatment Education Patient Education Home Exercise Program,Joint Protection,Posture Other Education issued written HEP Activities Self-Care/Home Management Activities look at habitual positions and movements, consider ergonomics of work station PT-OP-R Modalities Start: 01/25/22 16:56 Freq: Status: Active Protocol: Document 01/27/22 12:59 [facility] (Rec: 01/27/22 18:03 [facility] [id number]) Hot Pack/Cold Pack Treatment Hot Pack Location right shoulder and hip, left hand Patient Position Hooklying Treatment Duration (minutes) 15 Patient Tolerance Good PT-OP-T Assessment and Plan Start: 01/25/22 16:56 Freq: Status: Active Protocol: Document 01/27/22 12:59 [facility] (Rec: 01/27/22 18:03 [facility] [id number]) Physical Therapy Assessment Rehab Potential Rehabilitation Potential Good Evaluation Complexity Number of Personal Factors/Comorbidities 1-2 Number of Body Systems Impaired 3 Clinical Presentation at Evaluation Evolving Impairments Impairments Activity Tolerance,Pain, Strength Goals Four Impairment patient unable to state's attorney objects or open a jar due to left hand pain Jail Goal (LTG) Patient to improve left hand function sufficient to allow him to state's attorney objects and open a jar with ease LTG Duration 03/28/22 Three Impairment limited walking due to right hip pain Impairment unable to take walks due to pain Jail Goal (LTG) Patient able to resume taking walks of 1-2 miles without an increase in right hip pain LTG Duration 03/28/22 Two Impairment unable to reach overhead or behind his back for purposes of ADL's Jail Goal (LTG) Improve right shoulder ROM to allow him to reach overhead and behind his back with ease for purposes of ADL's LTG Duration 03/28/22 One Impairment pain right shoulder and hip, left hand Short Term Goal (STG) Decrease pain by at least 50% with all usual activities STG Duration 02/25/22 [employer] Crewmember Goal (LTG) Decrease pain by at least 75% right shoulder and hip, left hand to allow him to resume all usual activities LTG Duration 03/28/22 Assessment Summary Assessment Patient presents with function -limiting pain in right shoulder and hip and left 3rd and 4th MTP joints with trigger finger presentation. Some rotator cuff involvement apparent right shoulder and decreased flexibility and strength right hip with signs and symptoms of arthritis. Evaluation complicated due to multiple areas of pain. Will do further and ongoing assessment. Patient was instructed in HEP with 2 exercises addressing each area and finished treatment with moist heat to all. Patient would benefit from PT to decrease his pain and improve the function in his left hand, and right shoulder and hip to allow him to resume all prior activities. Physical Therapy Plan Frequency and Duration Frequency of Treatment 2x/Week Duration of Treatment 8 weeks Plan of Care Start Date 01/26/22 Plan of Care End Date 03/28/22 Therapeutic Interventions Therapeutic Interventions Aquatic Therapy,Gait Training, Home Exercise Program, Lymphedema Management,Manual Therapy,Neuromuscular Re- education,Patient/Caregiver Education,Self-Care/Home Management,Sensory Integration ,Soft Tissue Mobilization, Taping,Therapeutic Activities, Therapeutic Exercises Modalities Cold Pack/Ice Massage,Hot Packs,Ultrasound Next Visit Focus/Plan Next Note Type Treatment Note Next Visit Plan Review HEP, Progress HEP for hip flexibility and strengthening, right shoulder ROM with wand and pulleys and strengthening with theraband. Start with paraffin treatment left hand. End with moist heat as needed.
--- NOTE | 2022-01-26 18:03 | PT.OPPOC ---
Physical, Occupational & Speech Therapy At [facility] Current Diagnoses Other chronic pain (01/26/22) Pain in right shoulder (01/26/22) Pain in right hip (01/26/22) Pain in left hip (01/26/22) Low back pain, unspecified (01/26/22) Visit Care Team Role Provider Type Jeffery Schaefer MD Attending Provider Physician Family Provider Primary Care Provider Referring Provider Specialty: Family Practice Address: [address] [place] [address] Email: [email or web address] Plan Of Care PT-OP-T Assessment and Plan Start: 01/25/22 16:56 Freq: Status: Active Protocol: Document 01/27/22 12:59 SAK (Rec: 01/27/22 18:03 SAK [id number]) Physical Therapy Assessment Rehab Potential Rehabilitation Potential Good Evaluation Complexity Number of Personal Factors/Comorbidities 1-2 Number of Body Systems Impaired 3 Clinical Presentation at Evaluation Evolving Impairments Impairments Activity Tolerance,Pain, Strength Goals Four Impairment 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 mechanic 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 or open a jar due to left hand pain [facility] Goal (LTG) Patient to improve left hand function sufficient to allow him to roller mechanic objects and open a jar with ease LTG Duration 03/28/22 Three Impairment limited walking due to right hip pain Impairment unable to take walks due to pain Caddy Goal (LTG) Patient able to resume taking walks of 1-2 miles without an increase in right hip pain LTG Duration 03/28/22 Two Impairment unable to reach overhead or behind his back for purposes of ADL's [facility] Goal (LTG) Improve right shoulder ROM to allow him to reach overhead and behind his back with ease for purposes of ADL's LTG Duration 03/28/22 One Impairment pain right shoulder and hip, left hand Short Term Goal (STG) Decrease pain by at least 50% with all usual activities STG Duration 02/25/22 [facility] Goal (LTG) Decrease pain by at least 75% right shoulder and hip, left hand to allow him to resume all usual activities LTG Duration 03/28/22 Assessment Summary Assessment Patient presents with function -limiting pain in right shoulder and hip and left 3rd and 4th MTP joints with trigger finger presentation. Some rotator cuff involvement apparent right shoulder and decreased flexibility and strength right hip with signs and symptoms of arthritis. Evaluation complicated due to multiple areas of pain. Will do further and ongoing assessment. Patient was instructed in HEP with 2 exercises addressing each area and finished treatment with moist heat to all. Patient would benefit from PT to decrease his pain and improve the function in his left hand, and right shoulder and hip to allow him to resume all prior activities. Physical Therapy Plan Frequency and Duration Frequency of Treatment 2x/Week Duration of Treatment 8 weeks Plan of Care Start Date 01/26/22 Plan of Care End Date 03/28/22 Therapeutic Interventions Therapeutic Interventions Aquatic Therapy,Gait Training, Home Exercise Program, Lymphedema Management,Manual Therapy,Neuromuscular Re- education,Patient/Caregiver Education,Self-Care/Home Management,Sensory Integration ,Soft Tissue Mobilization, Taping,Therapeutic Activities, Therapeutic Exercises Modalities Cold Pack/Ice Massage,Hot Packs,Ultrasound Next Visit Focus/Plan Next Note Type Treatment Note Next Visit Plan Review HEP, Progress HEP for hip flexibility and strengthening, right shoulder ROM with wand and pulleys and strengthening with theraband. Start with paraffin treatment left hand. End with moist heat as needed. Plan of Care Dates Plan of Care Start Date 01/26/22 Plan of Care End Date 03/28/22 Electronically Signed by: Patty Brice PT 01/27/22 8169 If you are in agreement with this Plan of Care, please return a signed and dated copy. I have reviewed this Plan of Care and certify that the skilled therapy services above are required to meet the patient?s needs. Physician Signature Date Printed Name and Credentials Clinical Instructor Signature Printed Name and Credentials
--- NOTE | 2022-01-28 17:22 | PT.OTN ---
Current Diagnoses Other chronic pain (01/28/22) Pain in right shoulder (01/28/22) Pain in right hip (01/28/22) Pain in left hip (01/28/22) Low back pain, unspecified (01/28/22) Physical Therapy Treatment Note PT-OP-A Visit Information Start: 01/25/22 16:56 Freq: Status: Active Protocol: Document 01/28/22 14:35 SAK (Rec: 01/28/22 15:18 SAK [id number]) Out-Patient Physical Therapy Visit Information Visit Information Visit Type Treatment Note Visit Start Time 14:30 Visit Stop Time 15:30 Total Visit Minutes 60 Visit Number 2 Evaluation Information Evaluation Date 01/28/22 PT-OP-B Current Condition Start: 01/25/22 16:56 Freq: Status: Active Protocol: Document 01/28/22 14:35 SAK (Rec: 01/28/22 15:18 SAK [id number]) Current Condition History of Current Condition Onset Date 1 1/2 years Current Complaints right shoulder and hip pain, left hand/fingers History of Current Condition No known accident, right hand dominant. No known injury. 4 months ago trigger finger left hand 3rd and 4th digits. 1 1/2 years ago right shoulder and hip for no known reason. Rides an exercise bike 45 min per day, walks 2-3 days per week about a mile. Daily use of heat for right shoulder pain. 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 Prior Treatments and Tests chiropractic for hip and back, short term relief aspirin, Tylenol. 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 PT-OP-G Mobility & Gait Start: 01/25/22 16:56 Freq: Status: Active Protocol: Document 01/26/22 12:59 SAK (Rec: 01/27/22 18:03 SAK [id number]) OP Gait Assessment Gait Gait Assistance Required: Independent Gait Deviations General Gait Pattern Antalgic Stair Climbing Evaluation Evaluation Level of Assist On Stairs Independent Technique/Endurance Stair Climbing Technique Step Over Step PT-OP-H Neuro Start: 01/25/22 16:56 Freq: Status: Active Protocol: Document 01/26/22 12:59 [facility] (Rec: 01/27/22 18:03 [facility] [id number]) Sensation Evaluation Gross Sensation Gross Sensation WNL Comments Summary Comments denies N/T PT-OP-J Posture/Palpation/Skin Start: 01/25/22 16:56 Freq: Status: Active Protocol: Document 01/26/22 12:59 [facility] (Rec: 01/27/22 18:03 [facility] [id number]) Posture Evaluation Position Standing Head/C-Spine Posture Forward Head T-Spine Posture Increased Kyphosis L-Spine Posture Increased Lordosis Shoulder Posture (L) Rounded,(R) Rounded Scapula Posture (L) Protracted,(R) Protracted Arm Posture (L) Internally Rotated,(R) Internally Rotated Hip Posture (L) Externally Rotated,(R) Externally Rotated PT-OP-K Range of Motion Start: 01/25/22 16:56 Freq: Status: Active Protocol: Document 01/26/22 12:59 [facility] (Rec: 01/26/22 13:38 [facility] [id number]) Cervical Spine Range of Motion Cervical Spine Active Testing Position Sitting Flexion 50 Extension 10 Rotation Left 70 Rotation Right 70 Lateral Flexion Left 20 Lateral Flexion Right 20 ROM Limitations Soft Tissue Tightness Lumbar Spine Range of Motion Lumbar Spine Active ROM Limitations Soft Tissue Tightness Comments mod decrease all motions Shoulder Goniometric Range of Motion Shoulder Right Shoulder ROM WFL No Testing Position Sitting Flexion 110 Extension 12 Abduction 105 External Rotation at 45 degrees 55 Abduction Internal Rotation Behind Back (text) L1 Left Active Shoulder ROM WFL Yes Finger Goniometric Range of Motion Finger ROM Limitations Finger ROM Limitations Pain Comments left 3rd and 4th MCP tenderness , limited into flexion by 50% Hip Goniometric Range of Motion Hip Right Flexion w/Knee Flexed 100 Straight Leg Raise 45 Extension 5 Abduction 40 Internal Rotation 30 External Rotation 45 Left Flexion w/Knee Flexed 100 Straight Leg Raise 50 Extension 5 Abduction 35 Internal Rotation 15 External Rotation 50 Hip ROM Limitations Hip ROM Limitations Soft Tissue Tightness Knee Goniometric Range of Motion Knee manjula Knee ROM WFL Yes PT-OP-M Strength Start: 01/25/22 16:56 Freq: Status: Active Protocol: Document 01/26/22 12:59 [facility] (Rec: 01/27/22 18:03 [facility] [id number]) Shoulder Strength Shoulder Manual Muscle Testing Right Flexion 4- Good- Extension 4 Good Abduction (C5) 4- Good- External Rotation 4- Good- Internal Rotation 4- Good- Left Flexion 5 Normal Extension 5 Normal Abduction (C5) 5 Normal External Rotation 4+ Good+ Internal Rotation 4+ Good+ Elbow/Forearm Strength Elbow and Forearm Manual Muscle Testing manjula Flexion (C6) 5 Normal Extension (C7) 5 Normal Finger/Thumb Strength Finger Manual Muscle Testing left 3rd and 4th Comments painful and strength 3+/5 Hip Strength Hip Manual Muscle Testing Right Flexion (L2) 4- Good- Extension (S1) 4- Good- Abduction 4- Good- External Rotation 4- Good- Internal Rotation 4- Good- Left Flexion (L2) 4 Good Extension (S1) 4 Good Abduction 4 Good External Rotation 4 Good Internal Rotation 4 Good Knee Strength Knee Manual Muscle Testing Right Flexion (S2) 4 Good Extension (L3) 4 Good Left Flexion (S2) 5 Normal Extension (L3) 5 Normal PT-OP-Q Treatments Start: 01/25/22 16:56 Freq: Status: Active Protocol: Document 01/28/22 14:35 [facility] (Rec: 01/28/22 17:22 [facility] [id number]) Cardio Equipment Recumbent Stepper (Sci-Fit) Duration (Minutes) 5 Resistance 2.5 Seat Position 12 Therapeutic Exercises Supine Exercises bridge Reps/Minutes 10x lower trunk rotation Reps/Minutes 2x30 Comments with arms at sides pec stretch Reps/Minutes 2 min Sidelying Exercises hip abduction Side bilateral Reps/Minutes 10x Sitting Exercises finger and forearm extensor stretch Side left Reps/Minutes 2x30 prayer stretcch Side left Reps/Minutes 2x30 finger flex Sitting Exercise Name MCP flex with straight fingers , PIP flex, DIP flex Side left Reps/Minutes 5x ea Manual Therapy Treatment Soft Tissue Mobilization left MCP Body Location 3rd and 4th digits Mobilization Type Strumming Intensity/Depth Moderate Comments flexor tendons Self-Care/Home Management Treatment Education Patient Education Home Exercise Program,Joint Protection,Posture Other Education issued updated written HEP PT-OP-R Modalities Start: 01/25/22 16:56 Freq: Status: Active Protocol: Document 01/28/22 14:35 [facility] (Rec: 01/28/22 17:22 [facility] [id number]) Hot Pack/Cold Pack Treatment Hot Pack Location right shoulder and hip Patient Position Hooklying Treatment Duration (minutes) 15 Patient Tolerance Good Comments ice to left hand PT-OP-T Assessment and Plan Start: 01/25/22 16:56 Freq: Status: Active Protocol: Document 01/28/22 14:35 [facility] (Rec: 01/28/22 15:18 [facility] [id number]) Physical Therapy Assessment Goals Four Impairment 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 or open a jar due to left hand pain Header Dock Goal (LTG) Patient to improve left hand function sufficient to allow him to undergraduate 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 and open a jar with ease LTG Duration 03/28/22 Three Impairment limited walking due to right hip pain Impairment unable to take walks due to pain Header Dock Goal (LTG) Patient able to resume taking walks of 1-2 miles without an increase in right hip pain LTG Duration 03/28/22 Two Impairment unable to reach overhead or behind his back for purposes of ADL's Care Home Goal (LTG) Improve right shoulder ROM to allow him to reach overhead and behind his back with ease for purposes of ADL's LTG Duration 03/28/22 One Impairment pain right shoulder and hip, left hand Short Term Goal (STG) Decrease pain by at least 50% with all usual activities STG Duration 02/25/22 Care Home Goal (LTG) Decrease pain by at least 75% right shoulder and hip, left hand to allow him to resume all usual activities LTG Duration 03/28/22 Assessment Summary Assessment Patient demonstrated improved understanding and tolerance for hip stretching supine vs sitting, and row and shoulder extension with theraband after performance with PT guidance today. Added bridge, LTR, sidelying hip abduction, and modified piriformis stretch. Trial parafin and STM 3rd and 4th flexor tendon with good tolerance. Physical Therapy Plan Frequency and Duration Frequency of Treatment 2x/Week Duration of Treatment 8 weeks Plan of Care Start Date 01/26/22 Plan of Care End Date 03/28/22 Therapeutic Interventions Therapeutic Interventions Aquatic Therapy,Gait Training, Home Exercise Program, Lymphedema Management,Manual Therapy,Neuromuscular Re- education,Patient/Caregiver Education,Self-Care/Home Management,Sensory Integration ,Soft Tissue Mobilization, Taping,Therapeutic Activities, Therapeutic Exercises Modalities Cold Pack/Ice Massage,Hot Packs,Ultrasound Next Visit Focus/Plan Next Note Type Treatment Note Next Visit Plan Review HEP. Shoulder ER with TB, wall posture, further stretching and STM 3rd and 4th digits. Discuss possible splinting in extended position . Modify shoulder theraband exercises to eliminate gripping.
--- NOTE | 2022-02-02 12:28 | PT.OTN ---
Current Diagnoses Other chronic pain (02/02/22) Pain in right shoulder (02/02/22) Pain in right hip (02/02/22) Pain in left hip (02/02/22) Low back pain, unspecified (02/02/22) Physical Therapy Treatment Note PT-OP-A Visit Information Start: 01/25/22 16:56 Freq: Status: Active Protocol: Document 02/02/22 10:32 AW (Rec: 02/02/22 11:20 AW [id number]) Out-Patient Physical Therapy Visit Information Visit Information Visit Type Treatment Note Visit Start Time 10:33 Visit Stop Time 11:15 Total Visit Minutes 42 Visit Number 3 Number of ELECT EQUIP MAINT ENG Visits 0 Evaluation Information Evaluation Date 01/28/22 PT-OP-B Current Condition Start: 01/25/22 16:56 Freq: Status: Active Protocol: Document 01/28/22 14:35 SAK (Rec: 01/28/22 15:18 SAK [id number]) Current Condition History of Current Condition Onset Date 1 1/2 years Current Complaints right shoulder and hip pain, left hand/fingers History of Current Condition No known accident, right hand dominant. No known injury. 4 months ago trigger finger left hand 3rd and 4th digits. 1 1/2 years ago right shoulder and hip for no known reason. Rides an exercise bike 45 min per day, walks 2-3 days per week about a mile. Daily use of heat for right shoulder pain. 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 Prior Treatments and Tests chiropractic for hip and back, short term relief aspirin, Tylenol. x-ray: nothing definitive Treatment Goals Patient/Caregiver Goals be able to dog daycare provider, open a jar be able to reach overhead and behind his back be able to walk with minimal to no pain in right hip and low back PT-OP-C Subjective Start: 01/25/22 16:56 Freq: Status: Active Protocol: Document 02/02/22 10:32 AW (Rec: 02/02/22 12:28 AW [id number]) OP-PT Subjective Patient Comments Patient Comments Pt brings copies of all exercises and has questions ready to go. PT-OP-G Mobility & Gait Start: 01/25/22 16:56 Freq: Status: Active Protocol: Document 01/26/22 12:59 SAK (Rec: 01/27/22 18:03 SAK [id number]) OP Gait Assessment Gait Gait Assistance Required: Independent Gait Deviations General Gait Pattern Antalgic Stair Climbing Evaluation Evaluation Level of Assist On Stairs Independent Technique/Endurance Stair Climbing Technique Step Over Step PT-OP-H Neuro Start: 01/25/22 16:56 Freq: Status: Active Protocol: Document 01/26/22 12:59 [facility] (Rec: 01/27/22 18:03 [facility] [id number]) Sensation Evaluation Gross Sensation Gross Sensation WNL Comments Summary Comments denies N/T PT-OP-J Posture/Palpation/Skin Start: 01/25/22 16:56 Freq: Status: Active Protocol: Document 01/26/22 12:59 [facility] (Rec: 01/27/22 18:03 [facility] [id number]) Posture Evaluation Position Standing Head/C-Spine Posture Forward Head T-Spine Posture Increased Kyphosis L-Spine Posture Increased Lordosis Shoulder Posture (L) Rounded,(R) Rounded Scapula Posture (L) Protracted,(R) Protracted Arm Posture (L) Internally Rotated,(R) Internally Rotated Hip Posture (L) Externally Rotated,(R) Externally Rotated PT-OP-K Range of Motion Start: 01/25/22 16:56 Freq: Status: Active Protocol: Document 01/26/22 12:59 [facility] (Rec: 01/26/22 13:38 [facility] [id number]) Cervical Spine Range of Motion Cervical Spine Active Testing Position Sitting Flexion 50 Extension 10 Rotation Left 70 Rotation Right 70 Lateral Flexion Left 20 Lateral Flexion Right 20 ROM Limitations Soft Tissue Tightness Lumbar Spine Range of Motion Lumbar Spine Active ROM Limitations Soft Tissue Tightness Comments mod decrease all motions Shoulder Goniometric Range of Motion Shoulder Right Shoulder ROM WFL No Testing Position Sitting Flexion 110 Extension 12 Abduction 105 External Rotation at 45 degrees 55 Abduction Internal Rotation Behind Back (text) L1 Left Active Shoulder ROM WFL Yes Finger Goniometric Range of Motion Finger ROM Limitations Finger ROM Limitations Pain Comments left 3rd and 4th MCP tenderness , limited into flexion by 50% Hip Goniometric Range of Motion Hip Right Flexion w/Knee Flexed 100 Straight Leg Raise 45 Extension 5 Abduction 40 Internal Rotation 30 External Rotation 45 Left Flexion w/Knee Flexed 100 Straight Leg Raise 50 Extension 5 Abduction 35 Internal Rotation 15 External Rotation 50 Hip ROM Limitations Hip ROM Limitations Soft Tissue Tightness Knee Goniometric Range of Motion Knee manjula Knee ROM WFL Yes PT-OP-M Strength Start: 01/25/22 16:56 Freq: Status: Active Protocol: Document 01/26/22 12:59 SAK (Rec: 01/27/22 18:03 SAK [id number]) Shoulder Strength Shoulder Manual Muscle Testing Right Flexion 4- Good- Extension 4 Good Abduction (C5) 4- Good- External Rotation 4- Good- Internal Rotation 4- Good- Left Flexion 5 Normal Extension 5 Normal Abduction (C5) 5 Normal External Rotation 4+ Good+ Internal Rotation 4+ Good+ Elbow/Forearm Strength Elbow and Forearm Manual Muscle Testing manjula Flexion (C6) 5 Normal Extension (C7) 5 Normal Finger/Thumb Strength Finger Manual Muscle Testing left 3rd and 4th Comments painful and strength 3+/5 Hip Strength Hip Manual Muscle Testing Right Flexion (L2) 4- Good- Extension (S1) 4- Good- Abduction 4- Good- External Rotation 4- Good- Internal Rotation 4- Good- Left Flexion (L2) 4 Good Extension (S1) 4 Good Abduction 4 Good External Rotation 4 Good Internal Rotation 4 Good Knee Strength Knee Manual Muscle Testing Right Flexion (S2) 4 Good Extension (L3) 4 Good Left Flexion (S2) 5 Normal Extension (L3) 5 Normal PT-OP-Q Treatments Start: 01/25/22 16:56 Freq: Status: Active Protocol: Document 02/02/22 10:32 AW (Rec: 02/02/22 11:20 AW [id number]) Cardio Equipment Recumbent Stepper (Sci-Fit) Duration (Minutes) 5 Resistance 2.5 Seat Position 12 Therapeutic Exercises Supine Exercises piriformis stretch Supine Exercise Name piriformis stretch - modified (opp foot planted) Side bilateral Reps/Minutes 30 SH x 4 Comments HEP review - cues to pull toward opp shoulder bridge Reps/Minutes 10x lower trunk rotation Reps/Minutes 2x30 Comments with arms at sides pec stretch Reps/Minutes 2 min Sitting Exercises finger and forearm extensor stretch Side left Reps/Minutes 2x30 prayer stretcch Side left Reps/Minutes 2x30 Comments added ulnar and radial dev finger flex Sitting Exercise Name MCP flex with straight fingers , PIP flex, DIP flex Side left Reps/Minutes 5x ea Comments HEP Standing Exercises resisted GH extension Standing Exercise Name resisted GH extension Resistance TB1 Comments HEP review resisted rows Standing Exercise Name resisted GH rows Side bilateral Resistance TB1 Comments HEP review GH ER Standing Exercise Name GH ER Side right Resistance TB1 Comments HEP Manual Therapy Treatment Soft Tissue Mobilization left MCP Body Location 3rd and 4th digits Mobilization Type Strumming Intensity/Depth Moderate Comments flexor tendons Self-Care/Home Management Treatment Education Patient Education Home Exercise Program,Joint Protection,Posture Activities Self-Care/Home Management Activities Discussed desk set up and pt states he has moved his keyboard to directly in front of him vs off to the side. Added GH ER with TB to HEP. PT-OP-R Modalities Start: 01/25/22 16:56 Freq: Status: Active Protocol: Document 01/28/22 14:35 SAK (Rec: 01/28/22 17:22 SAK [id number]) Hot Pack/Cold Pack Treatment Hot Pack Location right shoulder and hip Patient Position Hooklying Treatment Duration (minutes) 15 Patient Tolerance Good Comments ice to left hand PT-OP-T Assessment and Plan Start: 01/25/22 16:56 Freq: Status: Active Protocol: Document 02/02/22 10:32 AW (Rec: 02/02/22 11:20 AW [id number]) Physical Therapy Assessment Goals Four Impairment patient unable to dog daycare provider objects or open a jar due to left hand pain Detention Goal (LTG) Patient to improve left hand function sufficient to allow him to dog daycare provider objects and open a jar with ease LTG Duration 03/28/22 Three Impairment limited walking due to right hip pain Impairment unable to take walks due to pain Detention Goal (LTG) Patient able to resume taking walks of 1-2 miles without an increase in right hip pain LTG Duration 03/28/22 Two Impairment unable to reach overhead or behind his back for purposes of ADL's Mail Handler Equipment Operator Goal (LTG) Improve right shoulder ROM to allow him to reach overhead and behind his back with ease for purposes of ADL's LTG Duration 03/28/22 One Impairment pain right shoulder and hip, left hand Short Term Goal (STG) Decrease pain by at least 50% with all usual activities STG Duration 02/25/22 Mail Handler Equipment Operator Goal (LTG) Decrease pain by at least 75% right shoulder and hip, left hand to allow him to resume all usual activities LTG Duration 03/28/22 Assessment Summary Assessment Pt needed repeat cues for direction of stretch in supine piriformis stretch but responded well and then independently set up for second rep. Pt did not think there was much benefit in paraffin bath and declined all modalities today. Will revisit HEP next session. Physical Therapy Plan Frequency and Duration Frequency of Treatment 2x/Week Duration of Treatment 8 weeks Plan of Care Start Date 01/26/22 Plan of Care End Date 03/28/22 Therapeutic Interventions Therapeutic Interventions Aquatic Therapy,Gait Training, Home Exercise Program, Lymphedema Management,Manual Therapy,Neuromuscular Re- education,Patient/Caregiver Education,Self-Care/Home Management,Sensory Integration ,Soft Tissue Mobilization, Taping,Therapeutic Activities, Therapeutic Exercises Modalities Cold Pack/Ice Massage,Hot Packs,Ultrasound Next Visit Focus/Plan Next Note Type Treatment Note Next Visit Plan Review HEP. Shoulder ER with TB, wall posture, further stretching and STM 3rd and 4th digits. Discuss possible splinting in extended position . Modify shoulder theraband exercises to eliminate gripping.
--- NOTE | 2022-02-04 12:17 | PT.OTN ---
Current Diagnoses Other chronic pain (02/04/22) Pain in right shoulder (02/04/22) Pain in right hip (02/04/22) Pain in left hip (02/04/22) Low back pain, unspecified (02/04/22) Physical Therapy Treatment Note PT-OP-A Visit Information Start: 01/25/22 16:56 Freq: Status: Active Protocol: Document 02/04/22 08:54 AW (Rec: 02/04/22 09:47 AW [id number]) Out-Patient Physical Therapy Visit Information Visit Information Visit Type Treatment Note Visit Start Time 09:00 Visit Stop Time 09:45 Total Visit Minutes 45 Visit Number 4 Number of DOMESTIC HOUSEKEEPER Visits 0 Evaluation Information Evaluation Date 01/28/22 PT-OP-B Current Condition Start: 01/25/22 16:56 Freq: Status: Active Protocol: Document 01/28/22 14:35 SAK (Rec: 01/28/22 15:18 SAK [id number]) Current Condition History of Current Condition Onset Date 1 1/2 years Current Complaints right shoulder and hip pain, left hand/fingers History of Current Condition No known accident, right hand dominant. No known injury. 4 months ago trigger finger left hand 3rd and 4th digits. 1 1/2 years ago right shoulder and hip for no known reason. Rides an exercise bike 45 min per day, walks 2-3 days per week about a mile. Daily use of heat for right shoulder pain. 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 Prior Treatments and Tests chiropractic for hip and back, short term relief aspirin, Tylenol. x-ray: nothing definitive Treatment Goals Patient/Caregiver Goals be able to communications representative, open a jar be able to reach overhead and behind his back be able to walk with minimal to no pain in right hip and low back PT-OP-C Subjective Start: 01/25/22 16:56 Freq: Status: Active Protocol: Document 02/04/22 08:54 AW (Rec: 02/04/22 09:47 AW [id number]) OP-PT Subjective Patient Comments Patient Comments Has been doing finger exercises. Fingers seem less swollen and less tight but pt does note the 3rd digit seems to be catching more. PT-OP-G Mobility & Gait Start: 01/25/22 16:56 Freq: Status: Active Protocol: Document 01/26/22 12:59 SAK (Rec: 01/27/22 18:03 [facility] [id number]) OP Gait Assessment Gait Gait Assistance Required: Independent Gait Deviations General Gait Pattern Antalgic Stair Climbing Evaluation Evaluation Level of Assist On Stairs Independent Technique/Endurance Stair Climbing Technique Step Over Step PT-OP-H Neuro Start: 01/25/22 16:56 Freq: Status: Active Protocol: Document 01/26/22 12:59 [facility] (Rec: 01/27/22 18:03 [facility] [id number]) Sensation Evaluation Gross Sensation Gross Sensation WNL Comments Summary Comments denies N/T PT-OP-J Posture/Palpation/Skin Start: 01/25/22 16:56 Freq: Status: Active Protocol: Document 01/26/22 12:59 [facility] (Rec: 01/27/22 18:03 [facility] [id number]) Posture Evaluation Position Standing Head/C-Spine Posture Forward Head T-Spine Posture Increased Kyphosis L-Spine Posture Increased Lordosis Shoulder Posture (L) Rounded,(R) Rounded Scapula Posture (L) Protracted,(R) Protracted Arm Posture (L) Internally Rotated,(R) Internally Rotated Hip Posture (L) Externally Rotated,(R) Externally Rotated PT-OP-K Range of Motion Start: 01/25/22 16:56 Freq: Status: Active Protocol: Document 01/26/22 12:59 [facility] (Rec: 01/26/22 13:38 [facility] [id number]) Cervical Spine Range of Motion Cervical Spine Active Testing Position Sitting Flexion 50 Extension 10 Rotation Left 70 Rotation Right 70 Lateral Flexion Left 20 Lateral Flexion Right 20 ROM Limitations Soft Tissue Tightness Lumbar Spine Range of Motion Lumbar Spine Active ROM Limitations Soft Tissue Tightness Comments mod decrease all motions Shoulder Goniometric Range of Motion Shoulder Right Shoulder ROM WFL No Testing Position Sitting Flexion 110 Extension 12 Abduction 105 External Rotation at 45 degrees 55 Abduction Internal Rotation Behind Back (text) L1 Left Active Shoulder ROM WFL Yes Finger Goniometric Range of Motion Finger ROM Limitations Finger ROM Limitations Pain Comments left 3rd and 4th MCP tenderness , limited into flexion by 50% Hip Goniometric Range of Motion Hip Right Flexion w/Knee Flexed 100 Straight Leg Raise 45 Extension 5 Abduction 40 Internal Rotation 30 External Rotation 45 Left Flexion w/Knee Flexed 100 Straight Leg Raise 50 Extension 5 Abduction 35 Internal Rotation 15 External Rotation 50 Hip ROM Limitations Hip ROM Limitations Soft Tissue Tightness Knee Goniometric Range of Motion Knee manjula Knee ROM WFL Yes PT-OP-M Strength Start: 01/25/22 16:56 Freq: Status: Active Protocol: Document 01/26/22 12:59 SAK (Rec: 01/27/22 18:03 SAK [id number]) Shoulder Strength Shoulder Manual Muscle Testing Right Flexion 4- Good- Extension 4 Good Abduction (C5) 4- Good- External Rotation 4- Good- Internal Rotation 4- Good- Left Flexion 5 Normal Extension 5 Normal Abduction (C5) 5 Normal External Rotation 4+ Good+ Internal Rotation 4+ Good+ Elbow/Forearm Strength Elbow and Forearm Manual Muscle Testing manjula Flexion (C6) 5 Normal Extension (C7) 5 Normal Finger/Thumb Strength Finger Manual Muscle Testing left 3rd and 4th Comments painful and strength 3+/5 Hip Strength Hip Manual Muscle Testing Right Flexion (L2) 4- Good- Extension (S1) 4- Good- Abduction 4- Good- External Rotation 4- Good- Internal Rotation 4- Good- Left Flexion (L2) 4 Good Extension (S1) 4 Good Abduction 4 Good External Rotation 4 Good Internal Rotation 4 Good Knee Strength Knee Manual Muscle Testing Right Flexion (S2) 4 Good Extension (L3) 4 Good Left Flexion (S2) 5 Normal Extension (L3) 5 Normal PT-OP-Q Treatments Start: 01/25/22 16:56 Freq: Status: Active Protocol: Document 02/04/22 08:54 AW (Rec: 02/04/22 09:47 AW [id number]) Cardio Equipment Recumbent Stepper (Sci-Fit) Duration (Minutes) 5 Resistance 2.5 Seat Position 12 Therapeutic Exercises Supine Exercises chin tuck and DNF endurance Supine Exercise Name chin tuck and DNF endurance Comments clinic only piriformis stretch Supine Exercise Name piriformis stretch - modified (opp foot planted) Side bilateral Reps/Minutes 30 SH x 4 Comments pt reports decreased tightness R hip bridge Equipment Used TB2 at knees Reps/Minutes 10x lower trunk rotation Equipment Used 55cm ball Reps/Minutes 2x30 Comments with arms at sides Sitting Exercises HS stretch Sitting Exercise Name HS stretch Side bilateral Resistance start with shoulder roll backward Comments HEP finger and forearm extensor stretch Side left Reps/Minutes 2x30 prayer stretcch Side left Reps/Minutes 2x30 Comments added ulnar and radial dev finger flex Sitting Exercise Name MCP flex with straight fingers , PIP flex, DIP flex Side left Reps/Minutes 5x ea Comments HEP Standing Exercises wall posture Standing Exercise Name wall posture with shoulder hAbd Reps/Minutes max cues for cervical posture Comments clinic only; revisit next session Self-Care/Home Management Treatment Education Patient Education Home Exercise Program,Posture PT-OP-R Modalities Start: 01/25/22 16:56 Freq: Status: Active Protocol: Document 01/28/22 14:35 SAK (Rec: 01/28/22 17:22 SAK [id number]) Hot Pack/Cold Pack Treatment Hot Pack Location right shoulder and hip Patient Position Hooklying Treatment Duration (minutes) 15 Patient Tolerance Good Comments ice to left hand PT-OP-T Assessment and Plan Start: 01/25/22 16:56 Freq: Status: Active Protocol: Document 02/04/22 08:54 AW (Rec: 02/04/22 09:47 AW [id number]) Physical Therapy Assessment Goals Four Impairment patient unable to communications representative objects or open a jar due to left hand pain Fpc Goal (LTG) Patient to improve left hand function sufficient to allow him to communications representative objects and open a jar with ease LTG Duration 03/28/22 Three Impairment limited walking due to right hip pain Impairment unable to take walks due to pain Fpc Goal (LTG) Patient able to resume taking walks of 1-2 miles without an increase in right hip pain LTG Duration 03/28/22 Two Impairment unable to reach overhead or behind his back for purposes of ADL's Fpc Goal (LTG) Improve right shoulder ROM to allow him to reach overhead and behind his back with ease for purposes of ADL's LTG Duration 03/28/22 One Impairment pain right shoulder and hip, left hand Short Term Goal (STG) Decrease pain by at least 50% with all usual activities STG Duration 02/25/22 Hydraulic Auto Jack Mechanic Goal (LTG) Decrease pain by at least 75% right shoulder and hip, left hand to allow him to resume all usual activities LTG Duration 03/28/22 Assessment Summary Assessment Pt more independent with HEP. Reviewed finger exercises and initiated postural education and training. Pt struggled with neck position at wall. Worked on deep neck flexor endurance in supine and will revisit both posture and neck strength next visit. Physical Therapy Plan Frequency and Duration Frequency of Treatment 2x/Week Duration of Treatment 8 weeks Plan of Care Start Date 01/26/22 Plan of Care End Date 03/28/22 Therapeutic Interventions Therapeutic Interventions Aquatic Therapy,Gait Training, Home Exercise Program, Lymphedema Management,Manual Therapy,Neuromuscular Re- education,Patient/Caregiver Education,Self-Care/Home Management,Sensory Integration ,Soft Tissue Mobilization, Taping,Therapeutic Activities, Therapeutic Exercises Modalities Cold Pack/Ice Massage,Hot Packs,Ultrasound Next Visit Focus/Plan Next Note Type Treatment Note Next Visit Plan Review HEP, wall posture, cervical neutral. Further stretching and STM 3rd and 4th digits. Discuss possible splinting in extended position . Modify shoulder theraband exercises to eliminate gripping.
--- NOTE | 2022-02-09 12:14 | PT.OTN ---
Current Diagnoses Other chronic pain (02/09/22) Pain in right shoulder (02/09/22) Pain in right hip (02/09/22) Pain in left hip (02/09/22) Low back pain, unspecified (02/09/22) Physical Therapy Treatment Note PT-OP-A Visit Information Start: 01/25/22 16:56 Freq: Status: Active Protocol: Document 02/09/22 11:15 AW (Rec: 02/09/22 12:14 AW [id number]) Out-Patient Physical Therapy Visit Information Visit Information Visit Type Treatment Note Visit Start Time 11:15 Visit Stop Time 12:00 Total Visit Minutes 45 Visit Number 5 Number of MANUAL WRITER Visits 0 Evaluation Information Evaluation Date 01/28/22 PT-OP-B Current Condition Start: 01/25/22 16:56 Freq: Status: Active Protocol: Document 01/28/22 14:35 SAK (Rec: 01/28/22 15:18 SAK [id number]) Current Condition History of Current Condition Onset Date 1 1/2 years Current Complaints right shoulder and hip pain, left hand/fingers History of Current Condition No known accident, right hand dominant. No known injury. 4 months ago trigger finger left hand 3rd and 4th digits. 1 1/2 years ago right shoulder and hip for no known reason. Rides an exercise bike 45 min per day, walks 2-3 days per week about a mile. Daily use of heat for right shoulder pain. 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 Prior Treatments and Tests chiropractic for hip and back, short term relief aspirin, Tylenol. x-ray: nothing definitive Treatment Goals Patient/Caregiver Goals be able to soubrette, open a jar be able to reach overhead and behind his back be able to walk with minimal to no pain in right hip and low back PT-OP-C Subjective Start: 01/25/22 16:56 Freq: Status: Active Protocol: Document 02/09/22 11:15 AW (Rec: 02/09/22 12:14 AW [id number]) OP-PT Subjective Patient Comments Patient Comments Doing finger exercises ( blocked) 2-3 times daily. Might be a little better. Patient Reported Progress Improving PT-OP-G Mobility & Gait Start: 01/25/22 16:56 Freq: Status: Active Protocol: Document 01/26/22 12:59 SAK (Rec: 01/27/22 18:03 [facility] [id number]) OP Gait Assessment Gait Gait Assistance Required: Independent Gait Deviations General Gait Pattern Antalgic Stair Climbing Evaluation Evaluation Level of Assist On Stairs Independent Technique/Endurance Stair Climbing Technique Step Over Step PT-OP-H Neuro Start: 01/25/22 16:56 Freq: Status: Active Protocol: Document 01/26/22 12:59 [facility] (Rec: 01/27/22 18:03 [facility] [id number]) Sensation Evaluation Gross Sensation Gross Sensation WNL Comments Summary Comments denies N/T PT-OP-J Posture/Palpation/Skin Start: 01/25/22 16:56 Freq: Status: Active Protocol: Document 01/26/22 12:59 [facility] (Rec: 01/27/22 18:03 [facility] [id number]) Posture Evaluation Position Standing Head/C-Spine Posture Forward Head T-Spine Posture Increased Kyphosis L-Spine Posture Increased Lordosis Shoulder Posture (L) Rounded,(R) Rounded Scapula Posture (L) Protracted,(R) Protracted Arm Posture (L) Internally Rotated,(R) Internally Rotated Hip Posture (L) Externally Rotated,(R) Externally Rotated PT-OP-K Range of Motion Start: 01/25/22 16:56 Freq: Status: Active Protocol: Document 01/26/22 12:59 [facility] (Rec: 01/26/22 13:38 [facility] [id number]) Cervical Spine Range of Motion Cervical Spine Active Testing Position Sitting Flexion 50 Extension 10 Rotation Left 70 Rotation Right 70 Lateral Flexion Left 20 Lateral Flexion Right 20 ROM Limitations Soft Tissue Tightness Lumbar Spine Range of Motion Lumbar Spine Active ROM Limitations Soft Tissue Tightness Comments mod decrease all motions Shoulder Goniometric Range of Motion Shoulder Right Shoulder ROM WFL No Testing Position Sitting Flexion 110 Extension 12 Abduction 105 External Rotation at 45 degrees 55 Abduction Internal Rotation Behind Back (text) L1 Left Active Shoulder ROM WFL Yes Finger Goniometric Range of Motion Finger ROM Limitations Finger ROM Limitations Pain Comments left 3rd and 4th MCP tenderness , limited into flexion by 50% Hip Goniometric Range of Motion Hip Right Flexion w/Knee Flexed 100 Straight Leg Raise 45 Extension 5 Abduction 40 Internal Rotation 30 External Rotation 45 Left Flexion w/Knee Flexed 100 Straight Leg Raise 50 Extension 5 Abduction 35 Internal Rotation 15 External Rotation 50 Hip ROM Limitations Hip ROM Limitations Soft Tissue Tightness Knee Goniometric Range of Motion Knee manjula Knee ROM WFL Yes PT-OP-M Strength Start: 01/25/22 16:56 Freq: Status: Active Protocol: Document 01/26/22 12:59 SAK (Rec: 01/27/22 18:03 SAK [id number]) Shoulder Strength Shoulder Manual Muscle Testing Right Flexion 4- Good- Extension 4 Good Abduction (C5) 4- Good- External Rotation 4- Good- Internal Rotation 4- Good- Left Flexion 5 Normal Extension 5 Normal Abduction (C5) 5 Normal External Rotation 4+ Good+ Internal Rotation 4+ Good+ Elbow/Forearm Strength Elbow and Forearm Manual Muscle Testing manjula Flexion (C6) 5 Normal Extension (C7) 5 Normal Finger/Thumb Strength Finger Manual Muscle Testing left 3rd and 4th Comments painful and strength 3+/5 Hip Strength Hip Manual Muscle Testing Right Flexion (L2) 4- Good- Extension (S1) 4- Good- Abduction 4- Good- External Rotation 4- Good- Internal Rotation 4- Good- Left Flexion (L2) 4 Good Extension (S1) 4 Good Abduction 4 Good External Rotation 4 Good Internal Rotation 4 Good Knee Strength Knee Manual Muscle Testing Right Flexion (S2) 4 Good Extension (L3) 4 Good Left Flexion (S2) 5 Normal Extension (L3) 5 Normal PT-OP-Q Treatments Start: 01/25/22 16:56 Freq: Status: Active Protocol: Document 02/09/22 11:15 AW (Rec: 02/09/22 12:14 AW [id number]) Cardio Equipment Recumbent Stepper (Sci-Fit) Duration (Minutes) 5 Resistance 3 Seat Position 12 Therapeutic Exercises Sitting Exercises cervical retraction Sitting Exercise Name cervical retraction Comments HEP hAbd Sitting Exercise Name hAbd Side bilateral Resistance TB2 Reps/Minutes sitting and standing with mirror Comments cues for relaxed UT, scapular squeeze finger abduction Sitting Exercise Name resisted finger abduction Side left Equipment Used PT manual resist then pt resist self Comments HEP pulleys Sitting Exercise Name pulleys - flex, scaption Side right Standing Exercises wall posture Standing Exercise Name wall posture with shoulders neutral Reps/Minutes max cues for cervical posture, pelvic tilt Comments clinic only resisted rows Standing Exercise Name resisted GH rows Side bilateral Resistance TB2 Comments HEP review Other Exercises sit to stand Other Exercise Name sit to stand Equipment Used std ht chair Reps/Minutes 3 x 10 reps Comments HEP; focused on weight shift, glute drive Manual Therapy Treatment Soft Tissue Mobilization left MCP Body Location 3rd and 4th digits Mobilization Type Strumming Intensity/Depth Moderate Comments flexor tendons Joint Mobilizations MCP, PIP, DIP Joint MCP, PIP, DIP Direction into extension Grade II Self-Care/Home Management Treatment Education Patient Education Home Exercise Program,Posture Activities Self-Care/Home Management Activities Added resisted finger abduction, cervical retraction , and sit to stand. PT-OP-R Modalities Start: 01/25/22 16:56 Freq: Status: Active Protocol: Document 01/28/22 14:35 SAK (Rec: 01/28/22 17:22 SAK [id number]) Hot Pack/Cold Pack Treatment Hot Pack Location right shoulder and hip Patient Position Hooklying Treatment Duration (minutes) 15 Patient Tolerance Good Comments ice to left hand PT-OP-T Assessment and Plan Start: 01/25/22 16:56 Freq: Status: Active Protocol: Document 02/09/22 11:15 AW (Rec: 02/09/22 12:14 AW [id number]) Physical Therapy Assessment Goals Four Impairment patient unable to soubrette objects or open a jar due to left hand pain Assistant Attorney General Goal (LTG) Patient to improve left hand function sufficient to allow him to soubrette objects and open a jar with ease LTG Duration 03/28/22 Three Impairment limited walking due to right hip pain Impairment unable to take walks due to pain Assistant Attorney General Goal (LTG) Patient able to resume taking walks of 1-2 miles without an increase in right hip pain LTG Duration 03/28/22 Two Impairment unable to reach overhead or behind his back for purposes of ADL's Skilled Nursing Goal (LTG) Improve right shoulder ROM to allow him to reach overhead and behind his back with ease for purposes of ADL's LTG Duration 03/28/22 One Impairment pain right shoulder and hip, left hand Short Term Goal (STG) Decrease pain by at least 50% with all usual activities STG Duration 02/25/22 Skilled Nursing Goal (LTG) Decrease pain by at least 75% right shoulder and hip, left hand to allow him to resume all usual activities LTG Duration 03/28/22 Assessment Summary Assessment Continued with postural education today and pt is capable of achieving improved cervical neutral. Gave cervical retraction for HEP along with strengthening for interossei and sit to stand. Pt continues with blocked MCP, PIP, and DIP flexion. Physical Therapy Plan Frequency and Duration Frequency of Treatment 2x/Week Duration of Treatment 8 weeks Plan of Care Start Date 01/26/22 Plan of Care End Date 03/28/22 Therapeutic Interventions Therapeutic Interventions Aquatic Therapy,Gait Training, Home Exercise Program, Lymphedema Management,Manual Therapy,Neuromuscular Re- education,Patient/Caregiver Education,Self-Care/Home Management,Sensory Integration ,Soft Tissue Mobilization, Taping,Therapeutic Activities, Therapeutic Exercises Modalities Cold Pack/Ice Massage,Hot Packs,Ultrasound Next Visit Focus/Plan Next Note Type Treatment Note Next Visit Plan Review HEP, wall posture, cervical neutral. Further stretching and STM 3rd and 4th digits. Discuss possible splinting in extended position . Modify shoulder theraband exercises to eliminate gripping.
--- NOTE | 2022-02-11 09:47 | PT.OTN ---
Current Diagnoses Other chronic pain (02/11/22) Pain in right shoulder (02/11/22) Pain in right hip (02/11/22) Pain in left hip (02/11/22) Low back pain, unspecified (02/11/22) Physical Therapy Treatment Note PT-OP-A Visit Information Start: 01/25/22 16:56 Freq: Status: Active Protocol: Document 02/11/22 08:51 AW (Rec: 02/11/22 09:46 AW [id number]) Out-Patient Physical Therapy Visit Information Visit Information Visit Type Treatment Note Visit Start Time 09:00 Visit Stop Time 09:40 Total Visit Minutes 40 Visit Number 6 Number of HEEL COMPRESSOR Visits 0 Evaluation Information Evaluation Date 01/28/22 PT-OP-B Current Condition Start: 01/25/22 16:56 Freq: Status: Active Protocol: Document 01/28/22 14:35 SAK (Rec: 01/28/22 15:18 SAK [id number]) Current Condition History of Current Condition Onset Date 1 1/2 years Current Complaints right shoulder and hip pain, left hand/fingers History of Current Condition No known accident, right hand dominant. No known injury. 4 months ago trigger finger left hand 3rd and 4th digits. 1 1/2 years ago right shoulder and hip for no known reason. Rides an exercise bike 45 min per day, walks 2-3 days per week about a mile. Daily use of heat for right shoulder pain. 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 Prior Treatments and Tests chiropractic for hip and back, short term relief aspirin, Tylenol. x-ray: nothing definitive Treatment Goals Patient/Caregiver Goals be able to carpenter supervisor, open a jar be able to reach overhead and behind his back be able to walk with minimal to no pain in right hip and low back PT-OP-C Subjective Start: 01/25/22 16:56 Freq: Status: Active Protocol: Document 02/11/22 08:51 AW (Rec: 02/11/22 09:46 AW [id number]) OP-PT Subjective Patient Comments Patient Comments Shoulder seems to be loosening up and hips feel better. 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 Finger seems about the same but at least the swelling is down. Patient Reported Progress Improving PT-OP-G Mobility & Gait Start: 01/25/22 16:56 Freq: Status: Active Protocol: Document 01/26/22 12:59 [facility] (Rec: 01/27/22 18:03 [facility] [id number]) OP Gait Assessment Gait Gait Assistance Required: Independent Gait Deviations General Gait Pattern Antalgic Stair Climbing Evaluation Evaluation Level of Assist On Stairs Independent Technique/Endurance Stair Climbing Technique Step Over Step PT-OP-H Neuro Start: 01/25/22 16:56 Freq: Status: Active Protocol: Document 01/26/22 12:59 [facility] (Rec: 01/27/22 18:03 [facility] [id number]) Sensation Evaluation Gross Sensation Gross Sensation WNL Comments Summary Comments denies N/T PT-OP-J Posture/Palpation/Skin Start: 01/25/22 16:56 Freq: Status: Active Protocol: Document 01/26/22 12:59 [facility] (Rec: 01/27/22 18:03 [facility] [id number]) Posture Evaluation Position Standing Head/C-Spine Posture Forward Head T-Spine Posture Increased Kyphosis L-Spine Posture Increased Lordosis Shoulder Posture (L) Rounded,(R) Rounded Scapula Posture (L) Protracted,(R) Protracted Arm Posture (L) Internally Rotated,(R) Internally Rotated Hip Posture (L) Externally Rotated,(R) Externally Rotated PT-OP-K Range of Motion Start: 01/25/22 16:56 Freq: Status: Active Protocol: Document 01/26/22 12:59 [facility] (Rec: 01/26/22 13:38 [facility] [id number]) Cervical Spine Range of Motion Cervical Spine Active Testing Position Sitting Flexion 50 Extension 10 Rotation Left 70 Rotation Right 70 Lateral Flexion Left 20 Lateral Flexion Right 20 ROM Limitations Soft Tissue Tightness Lumbar Spine Range of Motion Lumbar Spine Active ROM Limitations Soft Tissue Tightness Comments mod decrease all motions Shoulder Goniometric Range of Motion Shoulder Right Shoulder ROM WFL No Testing Position Sitting Flexion 110 Extension 12 Abduction 105 External Rotation at 45 degrees 55 Abduction Internal Rotation Behind Back (text) L1 Left Active Shoulder ROM WFL Yes Finger Goniometric Range of Motion Finger ROM Limitations Finger ROM Limitations Pain Comments left 3rd and 4th MCP tenderness , limited into flexion by 50% Hip Goniometric Range of Motion Hip Right Flexion w/Knee Flexed 100 Straight Leg Raise 45 Extension 5 Abduction 40 Internal Rotation 30 External Rotation 45 Left Flexion w/Knee Flexed 100 Straight Leg Raise 50 Extension 5 Abduction 35 Internal Rotation 15 External Rotation 50 Hip ROM Limitations Hip ROM Limitations Soft Tissue Tightness Knee Goniometric Range of Motion Knee manjula Knee ROM WFL Yes PT-OP-M Strength Start: 01/25/22 16:56 Freq: Status: Active Protocol: Document 01/26/22 12:59 SAK (Rec: 01/27/22 18:03 SAK [id number]) Shoulder Strength Shoulder Manual Muscle Testing Right Flexion 4- Good- Extension 4 Good Abduction (C5) 4- Good- External Rotation 4- Good- Internal Rotation 4- Good- Left Flexion 5 Normal Extension 5 Normal Abduction (C5) 5 Normal External Rotation 4+ Good+ Internal Rotation 4+ Good+ Elbow/Forearm Strength Elbow and Forearm Manual Muscle Testing manjula Flexion (C6) 5 Normal Extension (C7) 5 Normal Finger/Thumb Strength Finger Manual Muscle Testing left 3rd and 4th Comments painful and strength 3+/5 Hip Strength Hip Manual Muscle Testing Right Flexion (L2) 4- Good- Extension (S1) 4- Good- Abduction 4- Good- External Rotation 4- Good- Internal Rotation 4- Good- Left Flexion (L2) 4 Good Extension (S1) 4 Good Abduction 4 Good External Rotation 4 Good Internal Rotation 4 Good Knee Strength Knee Manual Muscle Testing Right Flexion (S2) 4 Good Extension (L3) 4 Good Left Flexion (S2) 5 Normal Extension (L3) 5 Normal PT-OP-Q Treatments Start: 01/25/22 16:56 Freq: Status: Active Protocol: Document 02/11/22 08:51 AW (Rec: 02/11/22 09:46 AW [id number]) Cardio Equipment Recumbent Stepper (Sci-Fit) Duration (Minutes) 5 Resistance 3 Seat Position 12 Therapeutic Exercises Supine Exercises piriformis stretch Supine Exercise Name piriformis stretch - modified (opp foot planted) Side bilateral Reps/Minutes 30 SH x 4 Comments pt reports decreased tightness R hip bridge Equipment Used TB2 at knees Reps/Minutes 10x Sitting Exercises pulleys Sitting Exercise Name pulleys - flex, scaption Side right Standing Exercises resisted ambulation Standing Exercise Name resisted ambulation - fwd/bwd Resistance trialed side step but slightly irritating Equipment Used yellow loop at ankles Reps/Minutes 5 laps fwd/bwd step up Standing Exercise Name step up - fwd and lateral Equipment Used 6 step, fingertip support on rail Comments lateral slightly irritating B hips wall posture Standing Exercise Name wall posture with shoulders neutral Reps/Minutes max cues for cervical posture, pelvic tilt Comments clinic only resisted GH extension Standing Exercise Name resisted GH extension Resistance TB1 Comments HEP review Other Exercises sit to stand Other Exercise Name sit to stand Equipment Used std ht chair Reps/Minutes 3 x 10 reps Comments cues for eccentric control of descent Manual Therapy Treatment Soft Tissue Mobilization left MCP Body Location 3rd and 4th digits Mobilization Type Strumming Intensity/Depth Moderate Comments flexor tendons Joint Mobilizations MCP, PIP, DIP Joint MCP, PIP, DIP Direction into extension Grade II Self-Care/Home Management Treatment Education Patient Education Home Exercise Program,Posture Activities Self-Care/Home Management Activities Added forward step up with rail contact prn for HEP PT-OP-R Modalities Start: 01/25/22 16:56 Freq: Status: Active Protocol: Document 01/28/22 14:35 SAK (Rec: 01/28/22 17:22 SAK [id number]) Hot Pack/Cold Pack Treatment Hot Pack Location right shoulder and hip Patient Position Hooklying Treatment Duration (minutes) 15 Patient Tolerance Good Comments ice to left hand PT-OP-T Assessment and Plan Start: 01/25/22 16:56 Freq: Status: Active Protocol: Document 02/11/22 08:51 AW (Rec: 02/11/22 09:46 AW [id number]) Physical Therapy Assessment Goals Four Impairment patient unable to carpenter supervisor objects or open a jar due to left hand pain Custodial Goal (LTG) Patient to improve left hand function sufficient to allow him to carpenter supervisor objects and open a jar with ease LTG Duration 03/28/22 Three Impairment limited walking due to right hip pain Impairment unable to take walks due to pain Inside Tester Goal (LTG) Patient able to resume taking walks of 1-2 miles without an increase in right hip pain LTG Duration 03/28/22 Two Impairment unable to reach overhead or behind his back for purposes of ADL's Inside Tester Goal (LTG) Improve right shoulder ROM to allow him to reach overhead and behind his back with ease for purposes of ADL's LTG Duration 03/28/22 One Impairment pain right shoulder and hip, left hand Short Term Goal (STG) Decrease pain by at least 50% with all usual activities STG Duration 02/25/22 Custodial Goal (LTG) Decrease pain by at least 75% right shoulder and hip, left hand to allow him to resume all usual activities LTG Duration 03/28/22 Assessment Summary Assessment Initiated standing hip strength today. Pt is challenged with single leg balance and would benefit from balance training. Physical Therapy Plan Frequency and Duration Frequency of Treatment 2x/Week Duration of Treatment 8 weeks Plan of Care Start Date 01/26/22 Plan of Care End Date 03/28/22 Therapeutic Interventions Therapeutic Interventions Aquatic Therapy,Gait Training, Home Exercise Program, Lymphedema Management,Manual Therapy,Neuromuscular Re- education,Patient/Caregiver Education,Self-Care/Home Management,Sensory Integration ,Soft Tissue Mobilization, Taping,Therapeutic Activities, Therapeutic Exercises Modalities Cold Pack/Ice Massage,Hot Packs,Ultrasound Next Visit Focus/Plan Next Note Type Treatment Note Next Visit Plan Review HEP, wall posture, cervical neutral. Further stretching and STM 3rd and 4th digits. Discuss possible splinting in extended position . Assess SLS.
--- NOTE | 2022-02-16 17:28 | PT.OTN ---
Current Diagnoses Other chronic pain (02/16/22) Pain in right shoulder (02/16/22) Pain in right hip (02/16/22) Pain in left hip (02/16/22) Low back pain, unspecified (02/16/22) Physical Therapy Treatment Note PT-OP-A Visit Information Start: 01/25/22 16:56 Freq: Status: Active Protocol: Document 02/16/22 09:00 SAK (Rec: 02/16/22 09:46 [facility] [id number]) Out-Patient Physical Therapy Visit Information Visit Information Visit Type Treatment Note Visit Start Time 09:00 Visit Stop Time 09:40 Total Visit Minutes 40 Visit Number 7 Number of MA[place] REVERSE WINDER Visits 0 Evaluation Information Evaluation Date 01/28/22 PT-OP-B Current Condition Start: 01/25/22 16:56 Freq: Status: Active Protocol: Document 01/28/22 14:35 SAK (Rec: 01/28/22 15:18 SAK [id number]) Current Condition History of Current Condition Onset Date 1 1/2 years Current Complaints right shoulder and hip pain, left hand/fingers History of Current Condition No known accident, right hand dominant. No known injury. 4 months ago trigger finger left hand 3rd and 4th digits. 1 1/2 years ago right shoulder and hip for no known reason. Rides an exercise bike 45 min per day, walks 2-3 days per week about a mile. Daily use of heat for right shoulder pain. 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 Prior Treatments and Tests chiropractic for hip and back, short term relief aspirin, Tylenol. x-ray: nothing definitive Treatment Goals Patient/Caregiver Goals be able to nutrition program instructor, open a jar be able to reach overhead and behind his back be able to walk with minimal to no pain in right hip and low back PT-OP-C Subjective Start: 01/25/22 16:56 Freq: Status: Active Protocol: Document 02/16/22 09:00 SAK (Rec: 02/16/22 09:46 [facility] [id number]) OP-PT Subjective Patient Comments Patient Comments More stiff than painful today. Using exercise bike at home, doing his exercises. Wondering about using therapy ball for exercises. Having difficulty with doing wall exercise. Patient Reported Progress Improving PT-OP-G Mobility & Gait Start: 01/25/22 16:56 Freq: Status: Active Protocol: Document 01/26/22 12:59 [facility] (Rec: 01/27/22 18:03 [facility] [id number]) OP Gait Assessment Gait Gait Assistance Required: Independent Gait Deviations General Gait Pattern Antalgic Stair Climbing Evaluation Evaluation Level of Assist On Stairs Independent Technique/Endurance Stair Climbing Technique Step Over Step PT-OP-H Neuro Start: 01/25/22 16:56 Freq: Status: Active Protocol: Document 01/26/22 12:59 [facility] (Rec: 01/27/22 18:03 [facility] [id number]) Sensation Evaluation Gross Sensation Gross Sensation WNL Comments Summary Comments denies N/T PT-OP-J Posture/Palpation/Skin Start: 01/25/22 16:56 Freq: Status: Active Protocol: Document 01/26/22 12:59 [facility] (Rec: 01/27/22 18:03 [facility] [id number]) Posture Evaluation Position Standing Head/C-Spine Posture Forward Head T-Spine Posture Increased Kyphosis L-Spine Posture Increased Lordosis Shoulder Posture (L) Rounded,(R) Rounded Scapula Posture (L) Protracted,(R) Protracted Arm Posture (L) Internally Rotated,(R) Internally Rotated Hip Posture (L) Externally Rotated,(R) Externally Rotated PT-OP-K Range of Motion Start: 01/25/22 16:56 Freq: Status: Active Protocol: Document 01/26/22 12:59 [facility] (Rec: 01/26/22 13:38 [facility] [id number]) Cervical Spine Range of Motion Cervical Spine Active Testing Position Sitting Flexion 50 Extension 10 Rotation Left 70 Rotation Right 70 Lateral Flexion Left 20 Lateral Flexion Right 20 ROM Limitations Soft Tissue Tightness Lumbar Spine Range of Motion Lumbar Spine Active ROM Limitations Soft Tissue Tightness Comments mod decrease all motions Shoulder Goniometric Range of Motion Shoulder Right Shoulder ROM WFL No Testing Position Sitting Flexion 110 Extension 12 Abduction 105 External Rotation at 45 degrees 55 Abduction Internal Rotation Behind Back (text) L1 Left Active Shoulder ROM WFL Yes Finger Goniometric Range of Motion Finger ROM Limitations Finger ROM Limitations Pain Comments left 3rd and 4th MCP tenderness , limited into flexion by 50% Hip Goniometric Range of Motion Hip Right Flexion w/Knee Flexed 100 Straight Leg Raise 45 Extension 5 Abduction 40 Internal Rotation 30 External Rotation 45 Left Flexion w/Knee Flexed 100 Straight Leg Raise 50 Extension 5 Abduction 35 Internal Rotation 15 External Rotation 50 Hip ROM Limitations Hip ROM Limitations Soft Tissue Tightness Knee Goniometric Range of Motion Knee manjula Knee ROM WFL Yes PT-OP-M Strength Start: 01/25/22 16:56 Freq: Status: Active Protocol: Document 01/26/22 12:59 [facility] (Rec: 01/27/22 18:03 [facility] [id number]) Shoulder Strength Shoulder Manual Muscle Testing Right Flexion 4- Good- Extension 4 Good Abduction (C5) 4- Good- External Rotation 4- Good- Internal Rotation 4- Good- Left Flexion 5 Normal Extension 5 Normal Abduction (C5) 5 Normal External Rotation 4+ Good+ Internal Rotation 4+ Good+ Elbow/Forearm Strength Elbow and Forearm Manual Muscle Testing manjula Flexion (C6) 5 Normal Extension (C7) 5 Normal Finger/Thumb Strength Finger Manual Muscle Testing left 3rd and 4th Comments painful and strength 3+/5 Hip Strength Hip Manual Muscle Testing Right Flexion (L2) 4- Good- Extension (S1) 4- Good- Abduction 4- Good- External Rotation 4- Good- Internal Rotation 4- Good- Left Flexion (L2) 4 Good Extension (S1) 4 Good Abduction 4 Good External Rotation 4 Good Internal Rotation 4 Good Knee Strength Knee Manual Muscle Testing Right Flexion (S2) 4 Good Extension (L3) 4 Good Left Flexion (S2) 5 Normal Extension (L3) 5 Normal PT-OP-Q Treatments Start: 01/25/22 16:56 Freq: Status: Active Protocol: Document 02/16/22 09:00 [facility] (Rec: 02/16/22 09:46 [facility] [id number]) Cardio Equipment Recumbent Stepper (Sci-Fit) Duration (Minutes) 7 Resistance 3 Seat Position 12 Therapeutic Exercises Supine Exercises SLR Reps/Minutes 10x piriformis stretch Supine Exercise Name piriformis stretch - modified (opp foot planted) Side bilateral Reps/Minutes 30 SH x 4 Comments pt reports decreased tightness R hip bridge Equipment Used TB2 at knees Reps/Minutes 10x Sidelying Exercises open book Reps/Minutes 5x Comments cues for segmental movement, deep breathing hip abduction Side bilateral Reps/Minutes 10x Sitting Exercises pulleys Sitting Exercise Name pulleys - flex, scaption Side right Comments ball at mid thoracic spine Standing Exercises SLS Reps/Minutes 3x20 resisted ambulation Standing Exercise Name resisted ambulation - fwd/bwd, side Equipment Used yellow loop at ankles Reps/Minutes 5 laps fwd/bwd, side step up Standing Exercise Name step up - fwd and lateral Equipment Used 6 step, fingertip support on rail Reps/Minutes 10x ea Comments lateral slightly irritating B hips wall posture Standing Exercise Name wall posture with shoulders neutral Reps/Minutes max cues for cervical posture, pelvic tilt Comments clinic only resisted GH extension Standing Exercise Name resisted GH extension Resistance TB3 Comments progressed resistance resisted rows Standing Exercise Name resisted GH rows Side bilateral Resistance TB# Comments progressed resistance GH ER Standing Exercise Name GH ER Side right Resistance TB3 Comments HEP Other Exercises sit to stand Comments HEP Manual Therapy Treatment Soft Tissue Mobilization left MCP Body Location 3rd and 4th digits Mobilization Type Strumming Intensity/Depth Moderate Comments flexor tendons Joint Mobilizations MCP, PIP, DIP Joint MCP, PIP, DIP Direction into extension Grade II Self-Care/Home Management Treatment Education Patient Education Home Exercise Program,Posture PT-OP-R Modalities Start: 01/25/22 16:56 Freq: Status: Active Protocol: Document 01/28/22 14:35 [facility] (Rec: 01/28/22 17:22 [facility] [id number]) Hot Pack/Cold Pack Treatment Hot Pack Location right shoulder and hip Patient Position Hooklying Treatment Duration (minutes) 15 Patient Tolerance Good Comments ice to left hand PT-OP-T Assessment and Plan Start: 01/25/22 16:56 Freq: Status: Active Protocol: Document 02/16/22 09:00 [facility] (Rec: 02/16/22 09:46 [facility] [id number]) Physical Therapy Assessment Goals Four Impairment patient unable to nutrition program instructor objects or open a jar due to left hand pain Mcc Goal (LTG) Patient to improve left hand function sufficient to allow him to nutrition program instructor objects and open a jar with ease LTG Duration 03/28/22 Three Impairment limited walking due to right hip pain Impairment unable to take walks due to pain Mcc Goal (LTG) Patient able to resume taking walks of 1-2 miles without an increase in right hip pain LTG Duration 03/28/22 Two Impairment unable to reach overhead or behind his back for purposes of ADL's Mcc Goal (LTG) Improve right shoulder ROM to allow him to reach overhead and behind his back with ease for purposes of ADL's LTG Duration 03/28/22 One Impairment pain right shoulder and hip, left hand Short Term Goal (STG) Decrease pain by at least 50% with all usual activities STG Duration 7/28/22 Land Management Supervisor Goal (LTG) Decrease pain by at least 75% right shoulder and hip, left hand to allow him to resume all usual activities LTG Duration 03/28/22 Assessment Summary Assessment Good tolerance for progression of ther ex to include SLS, cues for min UE support with resisted gait. Decrease in pain noted. ASsessed use of therapy ball as patient has previously used for anterior chest and shoulder stretch with patient able to perform without pain. Physical Therapy Plan Frequency and Duration Frequency of Treatment 2x/Week Duration of Treatment 8 weeks Plan of Care Start Date 01/26/22 Plan of Care End Date 03/28/22 Therapeutic Interventions Therapeutic Interventions Aquatic Therapy,Gait Training, Home Exercise Program, Lymphedema Management,Manual Therapy,Neuromuscular Re- education,Patient/Caregiver Education,Self-Care/Home Management,Sensory Integration ,Soft Tissue Mobilization, Taping,Therapeutic Activities, Therapeutic Exercises Modalities Cold Pack/Ice Massage,Hot Packs,Ultrasound Next Visit Focus/Plan Next Note Type Treatment Note Next Visit Plan ASsess response to today's treatment, progress ther ex as tolerated. Discuss possible splinting of finger in extended position, emphasis on treatment of finger next session.
--- NOTE | 2022-02-18 16:42 | PT.OTN ---
Current Diagnoses Other chronic pain (02/18/22) Pain in right shoulder (02/18/22) Pain in right hip (02/18/22) Pain in left hip (02/18/22) Low back pain, unspecified (02/18/22) Physical Therapy Treatment Note PT-OP-A Visit Information Start: 01/25/22 16:56 Freq: Status: Active Protocol: Document 02/18/22 08:58 SAK (Rec: 02/18/22 09:48 [facility] [id number]) Out-Patient Physical Therapy Visit Information Visit Information Visit Type Treatment Note Visit Start Time 09:00 Visit Stop Time 09:45 Total Visit Minutes 45 Visit Number 7 Number of PUBLICATIONS MANAGER Visits 0 Evaluation Information Evaluation Date 01/28/22 PT-OP-B Current Condition Start: 01/25/22 16:56 Freq: Status: Active Protocol: Document 01/28/22 14:35 SAK (Rec: 01/28/22 15:18 SAK [id number]) Current Condition History of Current Condition Onset Date 1 1/2 years Current Complaints right shoulder and hip pain, left hand/fingers History of Current Condition No known accident, right hand dominant. No known injury. 4 months ago trigger finger left hand 3rd and 4th digits. 1 1/2 years ago right shoulder and hip for no known reason. Rides an exercise bike 45 min per day, walks 2-3 days per week about a mile. Daily use of heat for right shoulder pain. 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 Prior Treatments and Tests chiropractic for hip and back, short term relief aspirin, Tylenol. x-ray: nothing definitive Treatment Goals Patient/Caregiver Goals be able to machine plaster mixer, open a jar be able to reach overhead and behind his back be able to walk with minimal to no pain in right hip and low back PT-OP-C Subjective Start: 01/25/22 16:56 Freq: Status: Active Protocol: Document 02/18/22 08:58 SAK (Rec: 02/18/22 09:48 SAK [id number]) OP-PT Subjective Patient Comments Patient Comments less pain, doing HEP every day , even finger catching less. Patient Reported Progress Improving PT-OP-G Mobility & Gait Start: 01/25/22 16:56 Freq: Status: Active Protocol: Document 01/26/22 12:59 SAK (Rec: 01/27/22 18:03 SAK [id number]) OP Gait Assessment Gait Gait Assistance Required: Independent Gait Deviations General Gait Pattern Antalgic Stair Climbing Evaluation Evaluation Level of Assist On Stairs Independent Technique/Endurance Stair Climbing Technique Step Over Step PT-OP-H Neuro Start: 01/25/22 16:56 Freq: Status: Active Protocol: Document 01/26/22 12:59 [facility] (Rec: 01/27/22 18:03 [facility] [id number]) Sensation Evaluation Gross Sensation Gross Sensation WNL Comments Summary Comments denies N/T PT-OP-J Posture/Palpation/Skin Start: 01/25/22 16:56 Freq: Status: Active Protocol: Document 01/26/22 12:59 [facility] (Rec: 01/27/22 18:03 [facility] [id number]) Posture Evaluation Position Standing Head/C-Spine Posture Forward Head T-Spine Posture Increased Kyphosis L-Spine Posture Increased Lordosis Shoulder Posture (L) Rounded,(R) Rounded Scapula Posture (L) Protracted,(R) Protracted Arm Posture (L) Internally Rotated,(R) Internally Rotated Hip Posture (L) Externally Rotated,(R) Externally Rotated PT-OP-K Range of Motion Start: 01/25/22 16:56 Freq: Status: Active Protocol: Document 01/26/22 12:59 [facility] (Rec: 01/26/22 13:38 [facility] [id number]) Cervical Spine Range of Motion Cervical Spine Active Testing Position Sitting Flexion 50 Extension 10 Rotation Left 70 Rotation Right 70 Lateral Flexion Left 20 Lateral Flexion Right 20 ROM Limitations Soft Tissue Tightness Lumbar Spine Range of Motion Lumbar Spine Active ROM Limitations Soft Tissue Tightness Comments mod decrease all motions Shoulder Goniometric Range of Motion Shoulder Right Shoulder ROM WFL No Testing Position Sitting Flexion 110 Extension 12 Abduction 105 External Rotation at 45 degrees 55 Abduction Internal Rotation Behind Back (text) L1 Left Active Shoulder ROM WFL Yes Finger Goniometric Range of Motion Finger ROM Limitations Finger ROM Limitations Pain Comments left 3rd and 4th MCP tenderness , limited into flexion by 50% Hip Goniometric Range of Motion Hip Right Flexion w/Knee Flexed 100 Straight Leg Raise 45 Extension 5 Abduction 40 Internal Rotation 30 External Rotation 45 Left Flexion w/Knee Flexed 100 Straight Leg Raise 50 Extension 5 Abduction 35 Internal Rotation 15 External Rotation 50 Hip ROM Limitations Hip ROM Limitations Soft Tissue Tightness Knee Goniometric Range of Motion Knee manjula Knee ROM WFL Yes PT-OP-M Strength Start: 01/25/22 16:56 Freq: Status: Active Protocol: Document 01/26/22 12:59 [facility] (Rec: 01/27/22 18:03 [facility] [id number]) Shoulder Strength Shoulder Manual Muscle Testing Right Flexion 4- Good- Extension 4 Good Abduction (C5) 4- Good- External Rotation 4- Good- Internal Rotation 4- Good- Left Flexion 5 Normal Extension 5 Normal Abduction (C5) 5 Normal External Rotation 4+ Good+ Internal Rotation 4+ Good+ Elbow/Forearm Strength Elbow and Forearm Manual Muscle Testing manjula Flexion (C6) 5 Normal Extension (C7) 5 Normal Finger/Thumb Strength Finger Manual Muscle Testing left 3rd and 4th Comments painful and strength 3+/5 Hip Strength Hip Manual Muscle Testing Right Flexion (L2) 4- Good- Extension (S1) 4- Good- Abduction 4- Good- External Rotation 4- Good- Internal Rotation 4- Good- Left Flexion (L2) 4 Good Extension (S1) 4 Good Abduction 4 Good External Rotation 4 Good Internal Rotation 4 Good Knee Strength Knee Manual Muscle Testing Right Flexion (S2) 4 Good Extension (L3) 4 Good Left Flexion (S2) 5 Normal Extension (L3) 5 Normal PT-OP-Q Treatments Start: 01/25/22 16:56 Freq: Status: Active Protocol: Document 02/18/22 08:58 [facility] (Rec: 02/18/22 09:48 [facility] [id number]) Cardio Equipment Recumbent Stepper (Sci-Fit) Other patient riding exercise bike at home Therapeutic Exercises Supine Exercises posterior capusult stretch Side right Reps/Minutes 2x30 angels Supine Exercise Name UE's Equipment Used 1/2 roll Reps/Minutes 5x shoulder flex Equipment Used wand, 1/2 roll Reps/Minutes 10x supine DLS Equipment Used 1/2 foam roller Reps/Minutes 6 min Comments manjula and unil UE movements Sitting Exercises sit to stand Reps/Minutes 10x Manual Therapy Treatment Soft Tissue Mobilization self massage Comments instruction in use of tennis/ raquet ball for self massage/ release right subscap standing and sidelying options pin and stretch Body Location right subscap Mobilization Type Other Intensity/Depth Moderate Body Position Supine left MCP Body Location 3rd and 4th digits Mobilization Type Strumming Intensity/Depth Moderate Comments flexor tendons Joint Mobilizations MCP, PIP, DIP Joint MCP, PIP, DIP Direction into extension Grade II Self-Care/Home Management Treatment Education Patient Education Home Exercise Program,Joint Protection Other Education further discussion of benefits of finger splint, shown example, patient to pursue. 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 or open a jar due to left hand pain Universal Grinder Operator Goal (LTG) Patient to improve left hand function sufficient to allow him to machine plaster mixer objects and open a jar with ease LTG Duration 03/28/22 Three Impairment limited walking due to right hip pain Impairment unable to take walks due to pain Retirement Goal (LTG) Patient able to resume taking walks of 1-2 miles without an increase in right hip pain LTG Duration 03/28/22 Two Impairment unable to reach overhead or behind his back for purposes of ADL's Universal Grinder Operator Goal (LTG) Improve right shoulder ROM to allow him to reach overhead and behind his back with ease for purposes of ADL's LTG Duration 03/28/22 One Impairment pain right shoulder and hip, left hand Short Term Goal (STG) Decrease pain by at least 50% with all usual activities STG Duration 02/25/22 Retirement Goal (LTG) Decrease pain by at least 75% right shoulder and hip, left hand to allow him to resume all usual activities LTG Duration 03/28/22 Progress Towards Goals Progress Towards Goals Progressing Toward Goals Assessment Summary Assessment subscap right appears to be primary contributor to patient right shoulder limitations; fair tolerance for pin and stretch. Demonstrated good understanding of self-massage with ball, preferred in standing at wall Physical Therapy Plan Frequency and Duration Frequency of Treatment 2x/Week Duration of Treatment 8 weeks Plan of Care Start Date 01/26/22 Plan of Care End Date 03/28/22 Therapeutic Interventions Therapeutic Interventions Aquatic Therapy,Gait Training, Home Exercise Program, Lymphedema Management,Manual Therapy,Neuromuscular Re- education,Patient/Caregiver Education,Self-Care/Home Management,Sensory Integration ,Soft Tissue Mobilization, Taping,Therapeutic Activities, Therapeutic Exercises Modalities Cold Pack/Ice Massage,Hot Packs,Ultrasound Next Visit Focus/Plan Next Note Type Treatment Note Next Visit Plan Continue core strengthening, shoulder ROM including AROM, postural correction and manual techniques, LE strengthening. Assess finger splint if obtained, continued treatment to trigger fingers left hand.
--- NOTE | 2022-02-24 15:57 | PT.OTN ---
Current Diagnoses Other chronic pain (02/24/22) Pain in right shoulder (02/24/22) Pain in right hip (02/24/22) Pain in left hip (02/24/22) Low back pain, unspecified (02/24/22) Physical Therapy Treatment Note PT-OP-A Visit Information Start: 01/25/22 16:56 Freq: Status: Active Protocol: Document 02/24/22 07:40 AMB (Rec: 02/24/22 08:17 AMB [id number]) Out-Patient Physical Therapy Visit Information Visit Information Visit Type Treatment Note Visit Start Time 07:30 Visit Stop Time 08:15 Total Visit Minutes 45 Visit Number 8 Number of RESIDENTIAL REMODELING SUBCONTRACTOR Visits 0 PT-OP-B Current Condition Start: 01/25/22 16:56 Freq: Status: Active Protocol: Document 01/28/22 14:35 SAK (Rec: 01/28/22 15:18 SAK [id number]) Current Condition History of Current Condition Onset Date 1 1/2 years Current Complaints right shoulder and hip pain, left hand/fingers History of Current Condition No known accident, right hand dominant. No known injury. 4 months ago trigger finger left hand 3rd and 4th digits. 1 1/2 years ago right shoulder and hip for no known reason. Rides an exercise bike 45 min per day, walks 2-3 days per week about a mile. Daily use of heat for right shoulder pain. 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 Prior Treatments and Tests chiropractic for hip and back, short term relief aspirin, Tylenol. 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 Feels like shoulder is getting better but still stiff . Patient Reported Progress Improving PT-OP-G Mobility & Gait Start: 01/25/22 16:56 Freq: Status: Active Protocol: Document 01/26/22 12:59 [facility] (Rec: 01/27/22 18:03 [facility] [id number]) OP Gait Assessment Gait Gait Assistance Required: Independent Gait Deviations General Gait Pattern Antalgic Stair Climbing Evaluation Evaluation Level of Assist On Stairs Independent Technique/Endurance Stair Climbing Technique Step Over Step PT-OP-H Neuro Start: 01/25/22 16:56 Freq: Status: Active Protocol: Document 01/26/22 12:59 [facility] (Rec: 01/27/22 18:03 [facility] [id number]) Sensation Evaluation Gross Sensation Gross Sensation WNL Comments Summary Comments denies N/T PT-OP-J Posture/Palpation/Skin Start: 01/25/22 16:56 Freq: Status: Active Protocol: Document 01/26/22 12:59 [facility] (Rec: 01/27/22 18:03 [facility] [id number]) Posture Evaluation Position Standing Head/C-Spine Posture Forward Head T-Spine Posture Increased Kyphosis L-Spine Posture Increased Lordosis Shoulder Posture (L) Rounded,(R) Rounded Scapula Posture (L) Protracted,(R) Protracted Arm Posture (L) Internally Rotated,(R) Internally Rotated Hip Posture (L) Externally Rotated,(R) Externally Rotated PT-OP-K Range of Motion Start: 01/25/22 16:56 Freq: Status: Active Protocol: Document 01/26/22 12:59 [facility] (Rec: 01/26/22 13:38 [facility] [id number]) Cervical Spine Range of Motion Cervical Spine Active Testing Position Sitting Flexion 50 Extension 10 Rotation Left 70 Rotation Right 70 Lateral Flexion Left 20 Lateral Flexion Right 20 ROM Limitations Soft Tissue Tightness Lumbar Spine Range of Motion Lumbar Spine Active ROM Limitations Soft Tissue Tightness Comments mod decrease all motions Shoulder Goniometric Range of Motion Shoulder Right Shoulder ROM WFL No Testing Position Sitting Flexion 110 Extension 12 Abduction 105 External Rotation at 45 degrees 55 Abduction Internal Rotation Behind Back (text) L1 Left Active Shoulder ROM WFL Yes Finger Goniometric Range of Motion Finger ROM Limitations Finger ROM Limitations Pain Comments left 3rd and 4th MCP tenderness , limited into flexion by 50% Hip Goniometric Range of Motion Hip Right Flexion w/Knee Flexed 100 Straight Leg Raise 45 Extension 5 Abduction 40 Internal Rotation 30 External Rotation 45 Left Flexion w/Knee Flexed 100 Straight Leg Raise 50 Extension 5 Abduction 35 Internal Rotation 15 External Rotation 50 Hip ROM Limitations Hip ROM Limitations Soft Tissue Tightness Knee Goniometric Range of Motion Knee manjula Knee ROM WFL Yes PT-OP-M Strength Start: 01/25/22 16:56 Freq: Status: Active Protocol: Document 01/26/22 12:59 SAK (Rec: 01/27/22 18:03 SAK [id number]) Shoulder Strength Shoulder Manual Muscle Testing Right Flexion 4- Good- Extension 4 Good Abduction (C5) 4- Good- External Rotation 4- Good- Internal Rotation 4- Good- Left Flexion 5 Normal Extension 5 Normal Abduction (C5) 5 Normal External Rotation 4+ Good+ Internal Rotation 4+ Good+ Elbow/Forearm Strength Elbow and Forearm Manual Muscle Testing manjula Flexion (C6) 5 Normal Extension (C7) 5 Normal Finger/Thumb Strength Finger Manual Muscle Testing left 3rd and 4th Comments painful and strength 3+/5 Hip Strength Hip Manual Muscle Testing Right Flexion (L2) 4- Good- Extension (S1) 4- Good- Abduction 4- Good- External Rotation 4- Good- Internal Rotation 4- Good- Left Flexion (L2) 4 Good Extension (S1) 4 Good Abduction 4 Good External Rotation 4 Good Internal Rotation 4 Good Knee Strength Knee Manual Muscle Testing Right Flexion (S2) 4 Good Extension (L3) 4 Good Left Flexion (S2) 5 Normal Extension (L3) 5 Normal PT-OP-Q Treatments Start: 01/25/22 16:56 Freq: Status: Active Protocol: Document 02/24/22 07:40 AMB (Rec: 02/24/22 08:17 AMB [id number]) Therapeutic Exercises Supine Exercises posterior capusult stretch Side right Reps/Minutes 2x30 pec stretch Reps/Minutes 2 min Sidelying Exercises sleeper stretch Reps/Minutes 30x3 open book Side right Reps/Minutes 5x Comments cues for segmental movement, deep breathing Manual Therapy Treatment Soft Tissue Mobilization R scapula Body Location MFR with flexion, scaption stretch Mobilization Type Myofascial Release,Sustained Pressure Intensity/Depth Moderate Body Position Sidelying pin and stretch Body Location right subscap Mobilization Type Other Intensity/Depth Moderate Body Position Supine PT-OP-R Modalities Start: 01/25/22 16:56 Freq: Status: Active Protocol: Document 02/18/22 08:58 SAK (Rec: 02/18/22 16:41 SAK [id number]) Hot Pack/Cold Pack Treatment Hot Pack Location right shoulder and hip Patient Position Hooklying Treatment Duration (minutes) 15 Patient Tolerance Good PT-OP-T Assessment and Plan Start: 01/25/22 16:56 Freq: Status: Active Protocol: Document 02/24/22 07:40 AMB (Rec: 02/24/22 08:17 AMB [id number]) Physical Therapy Assessment Goals Four 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 due to left hand pain Americanization Teacher Goal (LTG) Patient to improve left hand function sufficient to allow him to cannon crewmember objects and open a jar with ease LTG Duration 03/28/22 Three Impairment limited walking due to right hip pain Impairment unable to take walks due to pain Americanization Teacher Goal (LTG) Patient able to resume taking walks of 1-2 miles without an increase in right hip pain LTG Duration 03/28/22 Two Impairment unable to reach overhead or behind his back for purposes of ADL's Americanization Teacher Goal (LTG) Improve right shoulder ROM to allow him to reach overhead and behind his back with ease for purposes of ADL's LTG Duration 03/28/22 One Impairment pain right shoulder and hip, left hand Short Term Goal (STG) Decrease pain by at least 50% with all usual activities STG Duration 02/25/22 Long-Term Goal (LTG) Decrease pain by at least 75% right shoulder and hip, left hand to allow him to resume all usual activities LTG Duration 03/28/22 Assessment Summary Assessment Sharad dislplayed improved abduction after manual therapy , continues to be limited in IR, given sleeper stretch as HEP, but instructed to be gentle with it. Physical Therapy Plan Next Visit Focus/Plan Next Note Type Treatment Note Next Visit Plan Continue core strengthening, shoulder ROM including AROM, postural correction and manual techniques, LE strengthening. Assess finger splint if obtained, continued treatment to trigger fingers left hand.
--- NOTE | 2022-04-07 10:28 | PT.OTN ---
Current Diagnoses Other chronic pain (04/07/22) Pain in right shoulder (04/07/22) Pain in right hip (04/07/22) Pain in left hip (04/07/22) Low back pain, unspecified (04/07/22) Physical Therapy Treatment Note PT-OP-A Visit Information Start: 01/25/22 16:56 Freq: Status: Active Protocol: Document 04/07/22 08:53 AW (Rec: 04/07/22 10:28 AW [id number]) Out-Patient Physical Therapy Visit Information Visit Information Visit Type Progress Note Visit Start Time 09:45 Visit Stop Time 10:30 Total Visit Minutes 45 Visit Number 9 Number of WEB PRESS JOGGER Visits 0 Evaluation Information Evaluation Date 01/28/22 PT-OP-B Current Condition Start: 01/25/22 16:56 Freq: Status: Active Protocol: Document 01/28/22 14:35 SAK (Rec: 01/28/22 15:18 SAK [id number]) Current Condition History of Current Condition Onset Date 1 1/2 years Current Complaints right shoulder and hip pain, left hand/fingers History of Current Condition No known accident, right hand dominant. No known injury. 4 months ago trigger finger left hand 3rd and 4th digits. 1 1/2 years ago right shoulder and hip for no known reason. Rides an exercise bike 45 min per day, walks 2-3 days per week about a mile. Daily use of heat for right shoulder pain. 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 Prior Treatments and Tests chiropractic for hip and back, short term relief aspirin, Tylenol. 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 Right hip locked up again after doing a lot of yard work last week. Shoulder is doing ok. Pt got a job in [employer] and will be moving ~04/23/22. Patient Reported Progress Improving PT-OP-G Mobility & Gait Start: 01/25/22 16:56 Freq: Status: Active Protocol: Document 01/26/22 12:59 [facility] (Rec: 01/27/22 18:03 [facility] [id number]) OP Gait Assessment Gait Gait Assistance Required: Independent Gait Deviations General Gait Pattern Antalgic Stair Climbing Evaluation Evaluation Level of Assist On Stairs Independent Technique/Endurance Stair Climbing Technique Step Over Step PT-OP-H Neuro Start: 01/25/22 16:56 Freq: Status: Active Protocol: Document 01/26/22 12:59 [facility] (Rec: 01/27/22 18:03 [facility] [id number]) Sensation Evaluation Gross Sensation Gross Sensation WNL Comments Summary Comments denies N/T PT-OP-J Posture/Palpation/Skin Start: 01/25/22 16:56 Freq: Status: Active Protocol: Document 01/26/22 12:59 [facility] (Rec: 01/27/22 18:03 [facility] [id number]) Posture Evaluation Position Standing Head/C-Spine Posture Forward Head T-Spine Posture Increased Kyphosis L-Spine Posture Increased Lordosis Shoulder Posture (L) Rounded,(R) Rounded Scapula Posture (L) Protracted,(R) Protracted Arm Posture (L) Internally Rotated,(R) Internally Rotated Hip Posture (L) Externally Rotated,(R) Externally Rotated PT-OP-K Range of Motion Start: 01/25/22 16:56 Freq: Status: Active Protocol: Document 01/26/22 12:59 [facility] (Rec: 01/26/22 13:38 [facility] [id number]) Cervical Spine Range of Motion Cervical Spine Active Testing Position Sitting Flexion 50 Extension 10 Rotation Left 70 Rotation Right 70 Lateral Flexion Left 20 Lateral Flexion Right 20 ROM Limitations Soft Tissue Tightness Lumbar Spine Range of Motion Lumbar Spine Active ROM Limitations Soft Tissue Tightness Comments mod decrease all motions Shoulder Goniometric Range of Motion Shoulder Right Shoulder ROM WFL No Testing Position Sitting Flexion 110 Extension 12 Abduction 105 External Rotation at 45 degrees 55 Abduction Internal Rotation Behind Back (text) L1 Left Active Shoulder ROM WFL Yes Finger Goniometric Range of Motion Finger ROM Limitations Finger ROM Limitations Pain Comments left 3rd and 4th MCP tenderness , limited into flexion by 50% Hip Goniometric Range of Motion Hip Right Flexion w/Knee Flexed 100 Straight Leg Raise 45 Extension 5 Abduction 40 Internal Rotation 30 External Rotation 45 Left Flexion w/Knee Flexed 100 Straight Leg Raise 50 Extension 5 Abduction 35 Internal Rotation 15 External Rotation 50 Hip ROM Limitations Hip ROM Limitations Soft Tissue Tightness Knee Goniometric Range of Motion Knee manjula Knee ROM WFL Yes PT-OP-M Strength Start: 01/25/22 16:56 Freq: Status: Active Protocol: Document 01/26/22 12:59 [facility] (Rec: 01/27/22 18:03 SAK [id number]) Shoulder Strength Shoulder Manual Muscle Testing Right Flexion 4- Good- Extension 4 Good Abduction (C5) 4- Good- External Rotation 4- Good- Internal Rotation 4- Good- Left Flexion 5 Normal Extension 5 Normal Abduction (C5) 5 Normal External Rotation 4+ Good+ Internal Rotation 4+ Good+ Elbow/Forearm Strength Elbow and Forearm Manual Muscle Testing manjula Flexion (C6) 5 Normal Extension (C7) 5 Normal Finger/Thumb Strength Finger Manual Muscle Testing left 3rd and 4th Comments painful and strength 3+/5 Hip Strength Hip Manual Muscle Testing Right Flexion (L2) 4- Good- Extension (S1) 4- Good- Abduction 4- Good- External Rotation 4- Good- Internal Rotation 4- Good- Left Flexion (L2) 4 Good Extension (S1) 4 Good Abduction 4 Good External Rotation 4 Good Internal Rotation 4 Good Knee Strength Knee Manual Muscle Testing Right Flexion (S2) 4 Good Extension (L3) 4 Good Left Flexion (S2) 5 Normal Extension (L3) 5 Normal PT-OP-Q Treatments Start: 01/25/22 16:56 Freq: Status: Active Protocol: Document 04/07/22 08:53 AW (Rec: 04/07/22 10:28 AW [id number]) Therapeutic Exercises Supine Exercises piriformis stretch Supine Exercise Name piriformis stretch - modified (opp foot planted) Side bilateral Reps/Minutes 30 SH x 4 Comments pt reports decreased tightness R hip bridge Reps/Minutes 10 SH x5 Standing Exercises resisted ambulation Standing Exercise Name resisted ambulation - fwd/bwd, side Equipment Used yellow loop at ankles Reps/Minutes 5 laps fwd/bwd, side Comments cues for neutral hip rotation Manual Therapy Treatment Soft Tissue Mobilization R glutes Body Location R glutes Body Position Sidelying Comments Iliac crest scour and MFR glutes PT-OP-R Modalities Start: 01/25/22 16:56 Freq: Status: Active Protocol: Document 02/18/22 08:58 SAK (Rec: 02/18/22 16:41 SAK [id number]) Hot Pack/Cold Pack Treatment Hot Pack Location right shoulder and hip Patient Position Hooklying Treatment Duration (minutes) 15 Patient Tolerance Good PT-OP-T Assessment and Plan Start: 01/25/22 16:56 Freq: Status: Active Protocol: Document 04/07/22 08:53 AW (Rec: 04/07/22 10:28 AW [id number]) Physical Therapy Assessment Goals Four 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 04/07/22 Pt walking a mile regularly and noting some improvement with activity. LTG Duration 04/30/22 Two Impairment unable to reach overhead or behind his back for purposes of ADL's [facility] Goal (LTG) Improve right shoulder ROM to allow him to reach overhead and behind his back with ease for purposes of ADL's 04/07/22 - IR relatively equal to left side (T9-10). Still lacking 10 degrees flexion compared with left side and 12 degrees abduction. LTG Duration 04/30/22 One Impairment pain right shoulder and hip, left hand Short Term Goal (STG) Decrease pain by at least 50% with all usual activities 04/07/22 - GOAL MET STG Duration 02/25/22 [facility] Goal (LTG) Decrease pain by at least 75% right shoulder and hip, left hand to allow him to resume all usual activities 04/07/22 Shoulder has improved at least 75%. Pt notes ~30% improvement with fingers. Hip is bothering him today. LTG Duration 04/30/22 Progress Towards Goals Progress Towards Goals Progressing Toward Goals Progress Comments Good progress measured today in R shoulder ROM. Pt has acquired and is using a finger splint for night time with noted decrease in catching during the day. Assessment Summary Assessment Sharad is planning to move to [place] toward the end of the month. WIll continue to treat hip, shoulder, and fingers. Will work toward consolidating HEP before pt moves. Physical Therapy Plan Frequency and Duration Frequency of Treatment 2x/Week Duration of Treatment 1 month Plan of Care Start Date 04/07/22 Plan of Care End Date 04/30/22 Therapeutic Interventions Therapeutic Interventions Aquatic Therapy,Gait Training, Home Exercise Program, Lymphedema Management,Manual Therapy,Neuromuscular Re- education,Patient/Caregiver Education,Self-Care/Home Management,Sensory Integration ,Soft Tissue Mobilization, Taping,Therapeutic Activities, Therapeutic Exercises Modalities Cold Pack/Ice Massage,Hot Packs,Ultrasound Next Visit Focus/Plan Next Note Type Treatment Note Next Visit Plan Continue core strengthening, shoulder ROM including AROM, postural correction and manual techniques, LE strengthening. Assess finger splint if obtained, continued treatment to trigger fingers left hand.
--- NOTE | 2022-04-07 10:28 | PT.OPPOC ---
Physical, Occupational & Speech Therapy At [facility] Current Diagnoses Other chronic pain (04/07/22) Pain in right shoulder (04/07/22) Pain in right hip (04/07/22) Pain in left hip (04/07/22) Low back pain, unspecified (04/07/22) Visit Care Team Role Provider Type Jeffery Schaefer MD Attending Provider Physician Family Provider Primary Care Provider Referring Provider Specialty: [facility] Address: [address] [place] [address] Email: [email or web address] Plan Of Care PT-OP-T Assessment and Plan Start: 01/25/22 16:56 Freq: Status: Active Protocol: Document 04/07/22 08:53 AW (Rec: 04/07/22 10:28 AW [id number]) Physical Therapy Assessment Goals Four 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 04/07/22 Pt walking a mile regularly and noting some improvement with activity. LTG Duration 04/30/22 Two Impairment unable to reach overhead or behind his back for purposes of ADL's [facility]iary Goal (LTG) Improve right shoulder ROM to allow him to reach overhead and behind his back with ease for purposes of ADL's 04/07/22 - IR relatively equal to left side (T9-10). Still lacking 10 degrees flexion compared with left side and 12 degrees abduction. LTG Duration 04/30/22 One Impairment pain right shoulder and hip, left hand Short Term Goal (STG) Decrease pain by at least 50% with all usual activities 04/07/22 - GOAL MET STG Duration 02/25/22 Shell Coremaker Goal (LTG) Decrease pain by at least 75% right shoulder and hip, left hand to allow him to resume all usual activities 04/07/22 Shoulder has improved at least 75%. Pt notes ~30% improvement with fingers. Hip is bothering him today. LTG Duration 04/30/22 Progress Towards Goals Progress Towards Goals Progressing Toward Goals Progress Comments Good progress measured today in R shoulder ROM. Pt has acquired and is using a finger splint for night time with noted decrease in catching during the day. Assessment Summary Assessment Sharad is planning to move to [place] toward the end of the month. WIll continue to treat hip, shoulder, and fingers. Will work toward consolidating HEP before pt moves. Physical Therapy Plan Frequency and Duration Frequency of Treatment 2x/Week Duration of Treatment 1 month Plan of Care Start Date 04/07/22 Plan of Care End Date 04/30/22 Therapeutic Interventions Therapeutic Interventions Aquatic Therapy,Gait Training, Home Exercise Program, Lymphedema Management,Manual Therapy,Neuromuscular Re- education,Patient/Caregiver Education,Self-Care/Home Management,Sensory Integration ,Soft Tissue Mobilization, Taping,Therapeutic Activities, Therapeutic Exercises Modalities Cold Pack/Ice Massage,Hot Packs,Ultrasound Next Visit Focus/Plan Next Note Type Treatment Note Next Visit Plan Continue core strengthening, shoulder ROM including AROM, postural correction and manual techniques, LE strengthening. Assess finger splint if obtained, continued treatment to trigger fingers left hand. Plan of Care Dates Plan of Care Start Date 04/07/22 Plan of Care End Date 04/30/22 Electronically Signed by: Lisa Heard, HERMAN 04/07/22 6015 If you are in agreement with this Plan of Care, please return a signed and dated copy. I have reviewed this Plan of Care and certify that the skilled therapy services above are required to meet the patient?s needs. Physician Signature Date Printed Name and Credentials Clinical Instructor Signature Printed Name and Credentials
--- NOTE | 2022-04-09 16:02 | PT.OTN ---
Current Diagnoses Other chronic pain (04/09/22) Pain in right shoulder (04/09/22) Pain in right hip (04/09/22) Pain in left hip (04/09/22) Low back pain, unspecified (04/09/22) Physical Therapy Treatment Note PT-OP-A Visit Information Start: 01/25/22 16:56 Freq: Status: Active Protocol: Document 04/09/22 15:15 DCW (Rec: 04/09/22 16:02 DCW [id number]) Out-Patient Physical Therapy Visit Information Visit Information Visit Type Treatment Note Visit Start Time 15:15 Visit Stop Time 16:00 Total Visit Minutes 45 Visit Number 10 Number of COMMUNICATION EQUIPMENT REPAIRER Visits 0 Evaluation Information Evaluation Date 01/28/22 PT-OP-B Current Condition Start: 01/25/22 16:56 Freq: Status: Active Protocol: Document 01/28/22 14:35 SAK (Rec: 01/28/22 15:18 SAK [id number]) Current Condition History of Current Condition Onset Date 1 1/2 years Current Complaints right shoulder and hip pain, left hand/fingers History of Current Condition No known accident, right hand dominant. No known injury. 4 months ago trigger finger left hand 3rd and 4th digits. 1 1/2 years ago right shoulder and hip for no known reason. Rides an exercise bike 45 min per day, walks 2-3 days per week about a mile. Daily use of heat for right shoulder pain. 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 Prior Treatments and Tests chiropractic for hip and back, short term relief aspirin, Tylenol. x-ray: nothing definitive Treatment Goals Patient/Caregiver Goals be able to vacuum cleaner repair person, open a jar be able to reach overhead and behind his back be able to walk with minimal to no pain in right hip and low back PT-OP-C Subjective Start: 01/25/22 16:56 Freq: Status: Active Protocol: Document 04/09/22 15:15 DCW (Rec: 04/09/22 16:02 DCW [id number]) OP-PT Subjective Patient Comments Patient Comments Pt feels like he has been improving since beginning therapy. PT-OP-G Mobility & Gait Start: 01/25/22 16:56 Freq: Status: Active Protocol: Document 01/26/22 12:59 SAK (Rec: 01/27/22 18:03 SAK [id number]) OP Gait Assessment Gait Gait Assistance Required: Independent Gait Deviations General Gait Pattern Antalgic Stair Climbing Evaluation Evaluation Level of Assist On Stairs Independent Technique/Endurance Stair Climbing Technique Step Over Step PT-OP-H Neuro Start: 01/25/22 16:56 Freq: Status: Active Protocol: Document 01/26/22 12:59 [facility] (Rec: 01/27/22 18:03 [facility] [id number]) Sensation Evaluation Gross Sensation Gross Sensation WNL Comments Summary Comments denies N/T PT-OP-J Posture/Palpation/Skin Start: 01/25/22 16:56 Freq: Status: Active Protocol: Document 01/26/22 12:59 [facility] (Rec: 01/27/22 18:03 [facility] [id number]) Posture Evaluation Position Standing Head/C-Spine Posture Forward Head T-Spine Posture Increased Kyphosis L-Spine Posture Increased Lordosis Shoulder Posture (L) Rounded,(R) Rounded Scapula Posture (L) Protracted,(R) Protracted Arm Posture (L) Internally Rotated,(R) Internally Rotated Hip Posture (L) Externally Rotated,(R) Externally Rotated PT-OP-K Range of Motion Start: 01/25/22 16:56 Freq: Status: Active Protocol: Document 01/26/22 12:59 [facility] (Rec: 01/26/22 13:38 [facility] [id number]) Cervical Spine Range of Motion Cervical Spine Active Testing Position Sitting Flexion 50 Extension 10 Rotation Left 70 Rotation Right 70 Lateral Flexion Left 20 Lateral Flexion Right 20 ROM Limitations Soft Tissue Tightness Lumbar Spine Range of Motion Lumbar Spine Active ROM Limitations Soft Tissue Tightness Comments mod decrease all motions Shoulder Goniometric Range of Motion Shoulder Right Shoulder ROM WFL No Testing Position Sitting Flexion 110 Extension 12 Abduction 105 External Rotation at 45 degrees 55 Abduction Internal Rotation Behind Back (text) L1 Left Active Shoulder ROM WFL Yes Finger Goniometric Range of Motion Finger ROM Limitations Finger ROM Limitations Pain Comments left 3rd and 4th MCP tenderness , limited into flexion by 50% Hip Goniometric Range of Motion Hip Right Flexion w/Knee Flexed 100 Straight Leg Raise 45 Extension 5 Abduction 40 Internal Rotation 30 External Rotation 45 Left Flexion w/Knee Flexed 100 Straight Leg Raise 50 Extension 5 Abduction 35 Internal Rotation 15 External Rotation 50 Hip ROM Limitations Hip ROM Limitations Soft Tissue Tightness Knee Goniometric Range of Motion Knee manjula Knee ROM WFL Yes PT-OP-M Strength Start: 01/25/22 16:56 Freq: Status: Active Protocol: Document 01/26/22 12:59 SAK (Rec: 01/27/22 18:03 SAK [id number]) Shoulder Strength Shoulder Manual Muscle Testing Right Flexion 4- Good- Extension 4 Good Abduction (C5) 4- Good- External Rotation 4- Good- Internal Rotation 4- Good- Left Flexion 5 Normal Extension 5 Normal Abduction (C5) 5 Normal External Rotation 4+ Good+ Internal Rotation 4+ Good+ Elbow/Forearm Strength Elbow and Forearm Manual Muscle Testing manjula Flexion (C6) 5 Normal Extension (C7) 5 Normal Finger/Thumb Strength Finger Manual Muscle Testing left 3rd and 4th Comments painful and strength 3+/5 Hip Strength Hip Manual Muscle Testing Right Flexion (L2) 4- Good- Extension (S1) 4- Good- Abduction 4- Good- External Rotation 4- Good- Internal Rotation 4- Good- Left Flexion (L2) 4 Good Extension (S1) 4 Good Abduction 4 Good External Rotation 4 Good Internal Rotation 4 Good Knee Strength Knee Manual Muscle Testing Right Flexion (S2) 4 Good Extension (L3) 4 Good Left Flexion (S2) 5 Normal Extension (L3) 5 Normal PT-OP-Q Treatments Start: 01/25/22 16:56 Freq: Status: Active Protocol: Document 04/09/22 15:15 DCW (Rec: 04/09/22 16:02 DCW [id number]) Cardio Equipment Recumbent Elliptical ([employer]) Duration (Minutes) 5 Resistance 5 Seat Position 13 Therapeutic Exercises Supine Exercises piriformis stretch Supine Exercise Name piriformis stretch - modified (opp foot planted) Side bilateral Reps/Minutes 30 SH x 4 Comments pt reports decreased tightness R hip Sitting Exercises pulleys Sitting Exercise Name pulleys - flex, scaption HS stretch Sitting Exercise Name HS stretch Side bilateral Resistance start with shoulder roll backward Comments HEP Standing Exercises hip extension Standing Exercise Name Extension Side bilateral Resistance Green resisted ambulation Standing Exercise Name resisted ambulation - side- stepping Equipment Used Green loop at ankles Reps/Minutes 5 laps side Comments cues for neutral hip rotation Manual Therapy Treatment Soft Tissue Mobilization R glutes Body Location R glutes Body Position Sidelying Comments Iliac crest scour and MFR glutes R scapula Body Location MFR with flexion, scaption stretch Mobilization Type Myofascial Release,Sustained Pressure Intensity/Depth Moderate Body Position Supine pin and stretch Body Location right subscap Mobilization Type Other Intensity/Depth Moderate Body Position Supine PT-OP-R Modalities Start: 01/25/22 16:56 Freq: Status: Active Protocol: Document 02/18/22 08:58 SAK (Rec: 02/18/22 16:41 SAK [id number]) Hot Pack/Cold Pack Treatment Hot Pack Location right shoulder and hip Patient Position Hooklying Treatment Duration (minutes) 15 Patient Tolerance Good PT-OP-T Assessment and Plan Start: 01/25/22 16:56 Freq: Status: Active Protocol: Document 04/09/22 15:15 DCW (Rec: 04/09/22 16:02 DCW [id number]) Physical Therapy Assessment Goals Four Impairment patient unable to vacuum cleaner repair person objects or open a jar due to left hand pain Photography Manager Goal (LTG) Patient to improve left hand function sufficient to allow him to vacuum cleaner repair person objects and open a jar with ease 04/07/22 - Has not tested, LTG Duration 03/28/22 Three Impairment limited walking due to right hip pain Impairment unable to take walks due to pain Intermediate Goal (LTG) Patient able to resume taking walks of 1-2 miles without an increase in right hip pain. 04/07/22 Pt walking a mile regularly and noting some improvement with activity. LTG Duration 04/30/22 Two Impairment unable to reach overhead or behind his back for purposes of ADL's Intermediate Goal (LTG) Improve right shoulder ROM to allow him to reach overhead and behind his back with ease for purposes of ADL's 04/07/22 - IR relatively equal to left side (T9-10). Still lacking 10 degrees flexion compared with left side and 12 degrees abduction. LTG Duration 04/30/22 One Impairment pain right shoulder and hip, left hand Short Term Goal (STG) Decrease pain by at least 50% with all usual activities 04/07/22 - GOAL MET STG Duration 02/25/22 Intermediate Goal (LTG) Decrease pain by at least 75% right shoulder and hip, left hand to allow him to resume all usual activities 04/07/22 Shoulder has improved at least 75%. Pt notes ~30% improvement with fingers. Hip is bothering him today. LTG Duration 04/30/22 Assessment Summary Assessment Pt tolerating treatment very well today, showing some improvement in shoulder AROM following stretching, hip also responding well to stretching and STM. Physical Therapy Plan Frequency and Duration Frequency of Treatment 2x/Week Duration of Treatment 1 month Plan of Care Start Date 04/07/22 Plan of Care End Date 04/30/22 Therapeutic Interventions Therapeutic Interventions Aquatic Therapy,Gait Training, Home Exercise Program, Lymphedema Management,Manual Therapy,Neuromuscular Re- education,Patient/Caregiver Education,Self-Care/Home Management,Sensory Integration ,Soft Tissue Mobilization, Taping,Therapeutic Activities, Therapeutic Exercises Modalities Cold Pack/Ice Massage,Hot Packs,Ultrasound Next Visit Focus/Plan Next Note Type Treatment Note Next Visit Plan Continue core strengthening, shoulder ROM including AROM, postural correction and manual techniques, LE strengthening. Assess finger splint if obtained, continued treatment to trigger fingers left hand.
--- NOTE | 2022-04-13 10:28 | PT.OTN ---
Current Diagnoses Other chronic pain (04/13/22) Pain in right shoulder (04/13/22) Pain in right hip (04/13/22) Pain in left hip (04/13/22) Low back pain, unspecified (04/13/22) Physical Therapy Treatment Note PT-OP-A Visit Information Start: 01/25/22 16:56 Freq: Status: Active Protocol: Document 04/13/22 08:15 [facility] (Rec: 04/13/22 09:02 [facility] [id number]) Out-Patient Physical Therapy Visit Information Visit Information Visit Type Treatment Note Visit Start Time 08:16 Visit Stop Time 09:00 Total Visit Minutes 45 Visit Number 11 Number of WOODWORKING MACHINE OPERATOR Visits 0 Evaluation Information Evaluation Date 01/28/22 PT-OP-B Current Condition Start: 01/25/22 16:56 Freq: Status: Active Protocol: Document 01/28/22 14:35 [facility] (Rec: 01/28/22 15:18 [facility] [id number]) Current Condition History of Current Condition Onset Date 1 1/2 years Current Complaints right shoulder and hip pain, left hand/fingers History of Current Condition No known accident, right hand dominant. No known injury. 4 months ago trigger finger left hand 3rd and 4th digits. 1 1/2 years ago right shoulder and hip for no known reason. Rides an exercise bike 45 min per day, walks 2-3 days per week about a mile. Daily use of heat for right shoulder pain. 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 Prior Treatments and Tests chiropractic for hip and back, short term relief aspirin, Tylenol. x-ray: nothing definitive Treatment Goals Patient/Caregiver Goals be able to crm campaign manager, open a jar be able to reach overhead and behind his back be able to walk with minimal to no pain in right hip and low back PT-OP-C Subjective Start: 01/25/22 16:56 Freq: Status: Active Protocol: Document 04/13/22 08:15 [facility] (Rec: 04/13/22 09:02 [facility] [id number]) OP-PT Subjective Patient Comments Patient Comments No new c/o, wearing finger splint at night. Continues to improve shoulder and back hip pain. Will be moving to [place] end of month. Tries to work on his posture but hard to break habits PT-OP-G Mobility & Gait Start: 01/25/22 16:56 Freq: Status: Active Protocol: Document 01/26/22 12:59 [facility] (Rec: 01/27/22 18:03 [facility] [id number]) OP Gait Assessment Gait Gait Assistance Required: Independent Gait Deviations General Gait Pattern Antalgic Stair Climbing Evaluation Evaluation Level of Assist On Stairs Independent Technique/Endurance Stair Climbing Technique Step Over Step PT-OP-H Neuro Start: 01/25/22 16:56 Freq: Status: Active Protocol: Document 01/26/22 12:59 [facility] (Rec: 01/27/22 18:03 [facility] [id number]) Sensation Evaluation Gross Sensation Gross Sensation WNL Comments Summary Comments denies N/T PT-OP-J Posture/Palpation/Skin Start: 01/25/22 16:56 Freq: Status: Active Protocol: Document 01/26/22 12:59 [facility] (Rec: 01/27/22 18:03 [facility] [id number]) Posture Evaluation Position Standing Head/C-Spine Posture Forward Head T-Spine Posture Increased Kyphosis L-Spine Posture Increased Lordosis Shoulder Posture (L) Rounded,(R) Rounded Scapula Posture (L) Protracted,(R) Protracted Arm Posture (L) Internally Rotated,(R) Internally Rotated Hip Posture (L) Externally Rotated,(R) Externally Rotated PT-OP-K Range of Motion Start: 01/25/22 16:56 Freq: Status: Active Protocol: Document 01/26/22 12:59 [facility] (Rec: 01/26/22 13:38 [facility] [id number]) Cervical Spine Range of Motion Cervical Spine Active Testing Position Sitting Flexion 50 Extension 10 Rotation Left 70 Rotation Right 70 Lateral Flexion Left 20 Lateral Flexion Right 20 ROM Limitations Soft Tissue Tightness Lumbar Spine Range of Motion Lumbar Spine Active ROM Limitations Soft Tissue Tightness Comments mod decrease all motions Shoulder Goniometric Range of Motion Shoulder Right Shoulder ROM WFL No Testing Position Sitting Flexion 110 Extension 12 Abduction 105 External Rotation at 45 degrees 55 Abduction Internal Rotation Behind Back (text) L1 Left Active Shoulder ROM WFL Yes Finger Goniometric Range of Motion Finger ROM Limitations Finger ROM Limitations Pain Comments left 3rd and 4th MCP tenderness , limited into flexion by 50% Hip Goniometric Range of Motion Hip Right Flexion w/Knee Flexed 100 Straight Leg Raise 45 Extension 5 Abduction 40 Internal Rotation 30 External Rotation 45 Left Flexion w/Knee Flexed 100 Straight Leg Raise 50 Extension 5 Abduction 35 Internal Rotation 15 External Rotation 50 Hip ROM Limitations Hip ROM Limitations Soft Tissue Tightness Knee Goniometric Range of Motion Knee manjula Knee ROM WFL Yes PT-OP-M Strength Start: 01/25/22 16:56 Freq: Status: Active Protocol: Document 01/26/22 12:59 [facility] (Rec: 01/27/22 18:03 [facility] [id number]) Shoulder Strength Shoulder Manual Muscle Testing Right Flexion 4- Good- Extension 4 Good Abduction (C5) 4- Good- External Rotation 4- Good- Internal Rotation 4- Good- Left Flexion 5 Normal Extension 5 Normal Abduction (C5) 5 Normal External Rotation 4+ Good+ Internal Rotation 4+ Good+ Elbow/Forearm Strength Elbow and Forearm Manual Muscle Testing manjula Flexion (C6) 5 Normal Extension (C7) 5 Normal Finger/Thumb Strength Finger Manual Muscle Testing left 3rd and 4th Comments painful and strength 3+/5 Hip Strength Hip Manual Muscle Testing Right Flexion (L2) 4- Good- Extension (S1) 4- Good- Abduction 4- Good- External Rotation 4- Good- Internal Rotation 4- Good- Left Flexion (L2) 4 Good Extension (S1) 4 Good Abduction 4 Good External Rotation 4 Good Internal Rotation 4 Good Knee Strength Knee Manual Muscle Testing Right Flexion (S2) 4 Good Extension (L3) 4 Good Left Flexion (S2) 5 Normal Extension (L3) 5 Normal PT-OP-Q Treatments Start: 01/25/22 16:56 Freq: Status: Active Protocol: Document 04/13/22 08:15 [facility] (Rec: 04/13/22 09:02 [facility] [id number]) Cardio Equipment Recumbent Elliptical ([employer]) Duration (Minutes) 6 Resistance 5 Seat Position 13 Other cues for LE alignment Therapeutic Exercises Supine Exercises piriformis stretch Supine Exercise Name piriformis stretch - modified (opp foot planted) Side bilateral Reps/Minutes 30 SH x 4 Comments pt reports decreased tightness R hip bridge Reps/Minutes 5 x5 Comments progressed to single leg Sidelying Exercises open book Side right Reps/Minutes 5x Comments cues for segmental movement of spine, deep breathing Sitting Exercises trunk rotation Reps/Minutes 2x 30 manjula Comments hand to opposite knee, deep breathing into stretch pulleys Sitting Exercise Name pulleys - flex, scaption Comments cues for end-range stretch HS stretch Sitting Exercise Name HS stretch Side bilateral Resistance start with shoulder roll backward Comments HEP Standing Exercises GH IR Resistance TB3 Reps/Minutes 10x Comments verbal and tactile cues hip extension Standing Exercise Name Extension Side bilateral Resistance Green resisted ambulation Standing Exercise Name resisted ambulation - side- stepping Equipment Used Green loop at ankles Reps/Minutes 5 laps side Comments cues for neutral hip rotation resisted GH extension Standing Exercise Name resisted GH extension Resistance TB3 Comments verbal and tactile cues resisted rows Standing Exercise Name resisted GH rows Side bilateral Resistance TB# Comments verbal and tactile cues GH ER Standing Exercise Name GH ER Side right Resistance TB3 Comments verbal and tactile cues Manual Therapy Treatment Soft Tissue Mobilization R glutes Body Location R glutes Body Position Sidelying Comments Iliac crest scour and MFR glutes R scapula Body Location MFR with flexion, scaption stretch Mobilization Type Myofascial Release,Sustained Pressure Intensity/Depth Moderate Body Position Supine pin and stretch Body Location right subscap Mobilization Type Other Intensity/Depth Moderate Body Position Supine PT-OP-R Modalities Start: 01/25/22 16:56 Freq: Status: Active Protocol: Document 02/18/22 08:58 [facility] (Rec: 02/18/22 16:41 [facility] [id number]) Hot Pack/Cold Pack Treatment Hot Pack Location right shoulder and hip Patient Position Hooklying Treatment Duration (minutes) 15 Patient Tolerance Good PT-OP-T Assessment and Plan Start: 01/25/22 16:56 Freq: Status: Active Protocol: Document 04/13/22 08:15 [facility] (Rec: 04/13/22 09:02 [facility] [id number]) Physical Therapy Assessment Goals Four Impairment patient unable to crm campaign manager objects or open a jar due to left hand pain Detention Goal (LTG) Patient to improve left hand function sufficient to allow him to crm campaign manager objects and open a jar with ease 04/07/22 - Has not tested, LTG Duration 03/28/22 Three Impairment limited walking due to right hip pain Impairment unable to take walks due to pain Building Estimator Goal (LTG) Patient able to resume taking walks of 1-2 miles without an increase in right hip pain. 04/07/22 Pt walking a mile regularly and noting some improvement with activity. LTG Duration 04/30/22 Two Impairment unable to reach overhead or behind his back for purposes of ADL's Building Estimator Goal (LTG) Improve right shoulder ROM to allow him to reach overhead and behind his back with ease for purposes of ADL's 04/07/22 - IR relatively equal to left side (T9-10). Still lacking 10 degrees flexion compared with left side and 12 degrees abduction. LTG Duration 04/30/22 One Impairment pain right shoulder and hip, left hand Short Term Goal (STG) Decrease pain by at least 50% with all usual activities 04/07/22 - GOAL MET STG Duration 02/25/22 Building Estimator Goal (LTG) Decrease pain by at least 75% right shoulder and hip, left hand to allow him to resume all usual activities 04/07/22 Shoulder has improved at least 75%. Pt notes ~30% improvement with fingers. Hip is bothering him today. LTG Duration 04/30/22 Assessment Summary Assessment Patient compliant to HEP, needed moderate verbal and tactile cues for correct performance of shoulder theraband exercises. Wearing splint on finger. Physical Therapy Plan Frequency and Duration Frequency of Treatment 2x/Week Duration of Treatment 1 month Plan of Care Start Date 04/07/22 Plan of Care End Date 04/30/22 Therapeutic Interventions Therapeutic Interventions Aquatic Therapy,Gait Training, Home Exercise Program, Lymphedema Management,Manual Therapy,Neuromuscular Re- education,Patient/Caregiver Education,Self-Care/Home Management,Sensory Integration ,Soft Tissue Mobilization, Taping,Therapeutic Activities, Therapeutic Exercises Modalities Cold Pack/Ice Massage,Hot Packs,Ultrasound Next Visit Focus/Plan Next Note Type Treatment Note Next Visit Plan Continue core strengthening, shoulder ROM including AROM, postural correction and manual techniques, LE strengthening. Assess finger splint if obtained, continued treatment to trigger fingers left hand.
--- NOTE | 2022-04-15 16:08 | PT.OTN ---
Current Diagnoses Other chronic pain (04/15/22) Pain in right shoulder (04/15/22) Pain in right hip (04/15/22) Pain in left hip (04/15/22) Low back pain, unspecified (04/15/22) Physical Therapy Treatment Note PT-OP-A Visit Information Start: 01/25/22 16:56 Freq: Status: Active Protocol: Document 04/15/22 15:19 [facility] (Rec: 04/15/22 16:08 [facility] [id number]) Out-Patient Physical Therapy Visit Information Visit Information Visit Type Treatment Note Visit Start Time 15:19 Visit Stop Time 16:15 Total Visit Minutes 56 Visit Number 12 Number of WOOD GETTER Visits 0 PT-OP-B Current Condition Start: 01/25/22 16:56 Freq: Status: Active Protocol: Document 01/28/22 14:35 [facility] (Rec: 01/28/22 15:18 [facility] [id number]) Current Condition History of Current Condition Onset Date 1 1/2 years Current Complaints right shoulder and hip pain, left hand/fingers History of Current Condition No known accident, right hand dominant. No known injury. 4 months ago trigger finger left hand 3rd and 4th digits. 1 1/2 years ago right shoulder and hip for no known reason. Rides an exercise bike 45 min per day, walks 2-3 days per week about a mile. Daily use of heat for right shoulder pain. 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 Prior Treatments and Tests chiropractic for hip and back, short term relief aspirin, Tylenol. x-ray: nothing definitive Treatment Goals Patient/Caregiver Goals be able to configuration manager, open a jar be able to reach overhead and behind his back be able to walk with minimal to no pain in right hip and low back PT-OP-C Subjective Start: 01/25/22 16:56 Freq: Status: Active Protocol: Document 04/15/22 15:19 [facility] (Rec: 04/15/22 16:08 [facility] [id number]) OP-PT Subjective Patient Comments Patient Comments No new c/o today PT-OP-G Mobility & Gait Start: 01/25/22 16:56 Freq: Status: Active Protocol: Document 01/26/22 12:59 [facility] (Rec: 01/27/22 18:03 [facility] [id number]) OP Gait Assessment Gait Gait Assistance Required: Independent Gait Deviations General Gait Pattern Antalgic Stair Climbing Evaluation Evaluation Level of Assist On Stairs Independent Technique/Endurance Stair Climbing Technique Step Over Step PT-OP-H Neuro Start: 01/25/22 16:56 Freq: Status: Active Protocol: Document 01/26/22 12:59 [facility] (Rec: 01/27/22 18:03 [facility] [id number]) Sensation Evaluation Gross Sensation Gross Sensation WNL Comments Summary Comments denies N/T PT-OP-J Posture/Palpation/Skin Start: 01/25/22 16:56 Freq: Status: Active Protocol: Document 01/26/22 12:59 [facility] (Rec: 01/27/22 18:03 [facility] [id number]) Posture Evaluation Position Standing Head/C-Spine Posture Forward Head T-Spine Posture Increased Kyphosis L-Spine Posture Increased Lordosis Shoulder Posture (L) Rounded,(R) Rounded Scapula Posture (L) Protracted,(R) Protracted Arm Posture (L) Internally Rotated,(R) Internally Rotated Hip Posture (L) Externally Rotated,(R) Externally Rotated PT-OP-K Range of Motion Start: 01/25/22 16:56 Freq: Status: Active Protocol: Document 01/26/22 12:59 [facility] (Rec: 01/26/22 13:38 [facility] [id number]) Cervical Spine Range of Motion Cervical Spine Active Testing Position Sitting Flexion 50 Extension 10 Rotation Left 70 Rotation Right 70 Lateral Flexion Left 20 Lateral Flexion Right 20 ROM Limitations Soft Tissue Tightness Lumbar Spine Range of Motion Lumbar Spine Active ROM Limitations Soft Tissue Tightness Comments mod decrease all motions Shoulder Goniometric Range of Motion Shoulder Right Shoulder ROM WFL No Testing Position Sitting Flexion 110 Extension 12 Abduction 105 External Rotation at 45 degrees 55 Abduction Internal Rotation Behind Back (text) L1 Left Active Shoulder ROM WFL Yes Finger Goniometric Range of Motion Finger ROM Limitations Finger ROM Limitations Pain Comments left 3rd and 4th MCP tenderness , limited into flexion by 50% Hip Goniometric Range of Motion Hip Right Flexion w/Knee Flexed 100 Straight Leg Raise 45 Extension 5 Abduction 40 Internal Rotation 30 External Rotation 45 Left Flexion w/Knee Flexed 100 Straight Leg Raise 50 Extension 5 Abduction 35 Internal Rotation 15 External Rotation 50 Hip ROM Limitations Hip ROM Limitations Soft Tissue Tightness Knee Goniometric Range of Motion Knee manjula Knee ROM WFL Yes PT-OP-M Strength Start: 01/25/22 16:56 Freq: Status: Active Protocol: Document 01/26/22 12:59 [facility] (Rec: 01/27/22 18:03 [facility] [id number]) Shoulder Strength Shoulder Manual Muscle Testing Right Flexion 4- Good- Extension 4 Good Abduction (C5) 4- Good- External Rotation 4- Good- Internal Rotation 4- Good- Left Flexion 5 Normal Extension 5 Normal Abduction (C5) 5 Normal External Rotation 4+ Good+ Internal Rotation 4+ Good+ Elbow/Forearm Strength Elbow and Forearm Manual Muscle Testing manjula Flexion (C6) 5 Normal Extension (C7) 5 Normal Finger/Thumb Strength Finger Manual Muscle Testing left 3rd and 4th Comments painful and strength 3+/5 Hip Strength Hip Manual Muscle Testing Right Flexion (L2) 4- Good- Extension (S1) 4- Good- Abduction 4- Good- External Rotation 4- Good- Internal Rotation 4- Good- Left Flexion (L2) 4 Good Extension (S1) 4 Good Abduction 4 Good External Rotation 4 Good Internal Rotation 4 Good Knee Strength Knee Manual Muscle Testing Right Flexion (S2) 4 Good Extension (L3) 4 Good Left Flexion (S2) 5 Normal Extension (L3) 5 Normal PT-OP-Q Treatments Start: 01/25/22 16:56 Freq: Status: Active Protocol: Document 04/15/22 15:19 [facility] (Rec: 04/15/22 16:08 [facility] [id number]) Cardio Equipment Recumbent Elliptical ([employer]) Duration (Minutes) 7 Resistance 5 Seat Position 13 Other cues for LE alignment Gym Equipment Cable Column (Body Solid) lat pull Details plus shld shrug lower trap Resistance 20# Reps/Time 10x2 Therapeutic Exercises Supine Exercises piriformis stretch Supine Exercise Name piriformis stretch - modified (opp foot planted) Side bilateral Reps/Minutes 30 SH x 4 Comments pt reports decreased tightness R hip Sidelying Exercises open book Sidelying Exercise Name added to HEP Side bilateral Reps/Minutes 5x Comments cues for segmental movement of spine, deep breathing Sitting Exercises trunk rotation Reps/Minutes 2x 30 manjula Comments hand to opposite knee, deep breathing into stretch pulleys Sitting Exercise Name pulleys - flex, scaption Comments cues for end-range stretch Standing Exercises resisted ambulation Standing Exercise Name resisted ambulation - side- stepping Equipment Used Green loop at ankles Reps/Minutes 5 laps side Comments cues for neutral hip rotation resisted GH extension Standing Exercise Name HEP resisted rows Standing Exercise Name HEP GH ER Standing Exercise Name HEP Manual Therapy Treatment Soft Tissue Mobilization R glutes Body Location R glutes Body Position Sidelying Comments Iliac crest scour and MFR glutes Joint Mobilizations scapula Direction inf,post Grade III Body Position Sidelying PT-OP-R Modalities Start: 01/25/22 16:56 Freq: Status: Active Protocol: Document 02/18/22 08:58 [facility] (Rec: 02/18/22 16:41 [facility] [id number]) Hot Pack/Cold Pack Treatment Hot Pack Location right shoulder and hip Patient Position Hooklying Treatment Duration (minutes) 15 Patient Tolerance Good PT-OP-T Assessment and Plan Start: 01/25/22 16:56 Freq: Status: Active Protocol: Document 04/15/22 15:19 [facility] (Rec: 04/15/22 16:08 [facility] [id number]) Physical Therapy Assessment Goals Four Impairment patient unable to configuration manager objects or open a jar due to left hand pain Table Top Tile Setter Goal (LTG) Patient to improve left hand function sufficient to allow him to configuration manager objects and open a jar with ease 04/07/22 - Has not tested, LTG Duration 03/28/22 Three Impairment limited walking due to right hip pain Impairment unable to take walks due to pain Mcfp Goal (LTG) Patient able to resume taking walks of 1-2 miles without an increase in right hip pain. 04/07/22 Pt walking a mile regularly and noting some improvement with activity. LTG Duration 04/30/22 Two Impairment unable to reach overhead or behind his back for purposes of ADL's Table Top Tile Setter Goal (LTG) Improve right shoulder ROM to allow him to reach overhead and behind his back with ease for purposes of ADL's 04/07/22 - IR relatively equal to left side (T9-10). Still lacking 10 degrees flexion compared with left side and 12 degrees abduction. LTG Duration 04/30/22 One Impairment pain right shoulder and hip, left hand Short Term Goal (STG) Decrease pain by at least 50% with all usual activities 04/07/22 - GOAL MET STG Duration 02/25/22 Mcfp Goal (LTG) Decrease pain by at least 75% right shoulder and hip, left hand to allow him to resume all usual activities 04/07/22 Shoulder has improved at least 75%. Pt notes ~30% improvement with fingers. Hip is bothering him today. LTG Duration 04/30/22 Assessment Summary Assessment Improving shoulder and hip ROM , dec pain. Hasn't yet tried using finger splint during the day, PT recommended some wearing during the day for more rest to tendons. Physical Therapy Plan Frequency and Duration Frequency of Treatment 2x/Week Duration of Treatment 1 month Plan of Care Start Date 04/07/22 Plan of Care End Date 04/30/22 Therapeutic Interventions Therapeutic Interventions Aquatic Therapy,Gait Training, Home Exercise Program, Lymphedema Management,Manual Therapy,Neuromuscular Re- education,Patient/Caregiver Education,Self-Care/Home Management,Sensory Integration ,Soft Tissue Mobilization, Taping,Therapeutic Activities, Therapeutic Exercises Modalities Cold Pack/Ice Massage,Hot Packs,Ultrasound Next Visit Focus/Plan Next Note Type Treatment Note Next Visit Plan Continue core strengthening, shoulder ROM including AROM, postural correction and manual techniques, LE strengthening. Assess finger splint if obtained, continued treatment to trigger fingers left hand.
--- NOTE | 2022-04-15 16:09 | PT.OTN ---
Current Diagnoses Other chronic pain (04/15/22) Pain in right shoulder (04/15/22) Pain in right hip (04/15/22) Pain in left hip (04/15/22) Low back pain, unspecified (04/15/22) Physical Therapy Treatment Note PT-OP-A Visit Information Start: 01/25/22 16:56 Freq: Status: Active Protocol: Document 04/15/22 15:19 SAK (Rec: 04/15/22 16:08 [facility] [id number]) Out-Patient Physical Therapy Visit Information Visit Information Visit Type Treatment Note Visit Start Time 15:19 Visit Stop Time 16:15 Total Visit Minutes 56 Visit Number 12 Number of CANDY STARCH MOLD PRINTER Visits 0 PT-OP-B Current Condition Start: 01/25/22 16:56 Freq: Status: Active Protocol: Document 01/28/22 14:35 SAK (Rec: 01/28/22 15:18 SAK [id number]) Current Condition History of Current Condition Onset Date 1 1/2 years Current Complaints right shoulder and hip pain, left hand/fingers History of Current Condition No known accident, right hand dominant. No known injury. 4 months ago trigger finger left hand 3rd and 4th digits. 1 1/2 years ago right shoulder and hip for no known reason. Rides an exercise bike 45 min per day, walks 2-3 days per week about a mile. Daily use of heat for right shoulder pain. 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 Prior Treatments and Tests chiropractic for hip and back, short term relief aspirin, Tylenol. x-ray: nothing definitive Treatment Goals Patient/Caregiver Goals be able to retina subspecialist, open a jar be able to reach overhead and behind his back be able to walk with minimal to no pain in right hip and low back PT-OP-C Subjective Start: 01/25/22 16:56 Freq: Status: Active Protocol: Document 04/15/22 15:19 SAK (Rec: 04/15/22 16:08 [facility] [id number]) OP-PT Subjective Patient Comments Patient Comments No new c/o today PT-OP-G Mobility & Gait Start: 01/25/22 16:56 Freq: Status: Active Protocol: Document 01/26/22 12:59 SAK (Rec: 01/27/22 18:03 SAK [id number]) OP Gait Assessment Gait Gait Assistance Required: Independent Gait Deviations General Gait Pattern Antalgic Stair Climbing Evaluation Evaluation Level of Assist On Stairs Independent Technique/Endurance Stair Climbing Technique Step Over Step PT-OP-H Neuro Start: 01/25/22 16:56 Freq: Status: Active Protocol: Document 01/26/22 12:59 [facility] (Rec: 01/27/22 18:03 [facility] [id number]) Sensation Evaluation Gross Sensation Gross Sensation WNL Comments Summary Comments denies N/T PT-OP-J Posture/Palpation/Skin Start: 01/25/22 16:56 Freq: Status: Active Protocol: Document 01/26/22 12:59 [facility] (Rec: 01/27/22 18:03 [facility] [id number]) Posture Evaluation Position Standing Head/C-Spine Posture Forward Head T-Spine Posture Increased Kyphosis L-Spine Posture Increased Lordosis Shoulder Posture (L) Rounded,(R) Rounded Scapula Posture (L) Protracted,(R) Protracted Arm Posture (L) Internally Rotated,(R) Internally Rotated Hip Posture (L) Externally Rotated,(R) Externally Rotated PT-OP-K Range of Motion Start: 01/25/22 16:56 Freq: Status: Active Protocol: Document 01/26/22 12:59 [facility] (Rec: 01/26/22 13:38 [facility] [id number]) Cervical Spine Range of Motion Cervical Spine Active Testing Position Sitting Flexion 50 Extension 10 Rotation Left 70 Rotation Right 70 Lateral Flexion Left 20 Lateral Flexion Right 20 ROM Limitations Soft Tissue Tightness Lumbar Spine Range of Motion Lumbar Spine Active ROM Limitations Soft Tissue Tightness Comments mod decrease all motions Shoulder Goniometric Range of Motion Shoulder Right Shoulder ROM WFL No Testing Position Sitting Flexion 110 Extension 12 Abduction 105 External Rotation at 45 degrees 55 Abduction Internal Rotation Behind Back (text) L1 Left Active Shoulder ROM WFL Yes Finger Goniometric Range of Motion Finger ROM Limitations Finger ROM Limitations Pain Comments left 3rd and 4th MCP tenderness , limited into flexion by 50% Hip Goniometric Range of Motion Hip Right Flexion w/Knee Flexed 100 Straight Leg Raise 45 Extension 5 Abduction 40 Internal Rotation 30 External Rotation 45 Left Flexion w/Knee Flexed 100 Straight Leg Raise 50 Extension 5 Abduction 35 Internal Rotation 15 External Rotation 50 Hip ROM Limitations Hip ROM Limitations Soft Tissue Tightness Knee Goniometric Range of Motion Knee manjula Knee ROM WFL Yes PT-OP-M Strength Start: 01/25/22 16:56 Freq: Status: Active Protocol: Document 01/26/22 12:59 [facility] (Rec: 01/27/22 18:03 [facility] [id number]) Shoulder Strength Shoulder Manual Muscle Testing Right Flexion 4- Good- Extension 4 Good Abduction (C5) 4- Good- External Rotation 4- Good- Internal Rotation 4- Good- Left Flexion 5 Normal Extension 5 Normal Abduction (C5) 5 Normal External Rotation 4+ Good+ Internal Rotation 4+ Good+ Elbow/Forearm Strength Elbow and Forearm Manual Muscle Testing manjula Flexion (C6) 5 Normal Extension (C7) 5 Normal Finger/Thumb Strength Finger Manual Muscle Testing left 3rd and 4th Comments painful and strength 3+/5 Hip Strength Hip Manual Muscle Testing Right Flexion (L2) 4- Good- Extension (S1) 4- Good- Abduction 4- Good- External Rotation 4- Good- Internal Rotation 4- Good- Left Flexion (L2) 4 Good Extension (S1) 4 Good Abduction 4 Good External Rotation 4 Good Internal Rotation 4 Good Knee Strength Knee Manual Muscle Testing Right Flexion (S2) 4 Good Extension (L3) 4 Good Left Flexion (S2) 5 Normal Extension (L3) 5 Normal PT-OP-Q Treatments Start: 01/25/22 16:56 Freq: Status: Active Protocol: Document 04/15/22 15:19 [facility] (Rec: 04/15/22 16:08 [facility] [id number]) Cardio Equipment Recumbent Elliptical ([place]) Duration (Minutes) 7 Resistance 5 Seat Position 13 Other cues for LE alignment Gym Equipment Cable Column (Body Solid) lat pull Details plus shld shrug lower trap Resistance 20# Reps/Time 10x2 Therapeutic Exercises Supine Exercises piriformis stretch Supine Exercise Name piriformis stretch - modified (opp foot planted) Side bilateral Reps/Minutes 30 SH x 4 Comments pt reports decreased tightness R hip Sidelying Exercises open book Sidelying Exercise Name added to HEP Side bilateral Reps/Minutes 5x Comments cues for segmental movement of spine, deep breathing Sitting Exercises trunk rotation Reps/Minutes 2x 30 manjula Comments hand to opposite knee, deep breathing into stretch pulleys Sitting Exercise Name pulleys - flex, scaption Comments cues for end-range stretch Standing Exercises resisted ambulation Standing Exercise Name resisted ambulation - side- stepping Equipment Used Green loop at ankles Reps/Minutes 5 laps side Comments cues for neutral hip rotation resisted GH extension Standing Exercise Name HEP resisted rows Standing Exercise Name HEP GH ER Standing Exercise Name HEP Manual Therapy Treatment Soft Tissue Mobilization R glutes Body Location R glutes Body Position Sidelying Comments Iliac crest scour and MFR glutes Joint Mobilizations scapula Direction inf,post Grade III Body Position Sidelying PT-OP-R Modalities Start: 01/25/22 16:56 Freq: Status: Active Protocol: Document 04/15/22 15:19 [facility] (Rec: 04/15/22 16:09 [facility] [id number]) Hot Pack/Cold Pack Treatment Hot Pack Location right shoulder and hip Patient Position Hooklying Treatment Duration (minutes) 15 Patient Tolerance Good PT-OP-T Assessment and Plan Start: 01/25/22 16:56 Freq: Status: Active Protocol: Document 04/15/22 15:19 [facility] (Rec: 04/15/22 16:08 [facility] [id number]) Physical Therapy Assessment Goals Four Impairment patient unable to retina subspecialist objects or open a jar due to left hand pain Co Teacher Goal (LTG) Patient to improve left hand function sufficient to allow him to retina subspecialist objects and open a jar with ease 04/07/22 - Has not tested, LTG Duration 03/28/22 Three Impairment limited walking due to right hip pain Impairment unable to take walks due to pain Alf Goal (LTG) Patient able to resume taking walks of 1-2 miles without an increase in right hip pain. 04/07/22 Pt walking a mile regularly and noting some improvement with activity. LTG Duration 04/30/22 Two Impairment unable to reach overhead or behind his back for purposes of ADL's Co Teacher Goal (LTG) Improve right shoulder ROM to allow him to reach overhead and behind his back with ease for purposes of ADL's 04/07/22 - IR relatively equal to left side (T9-10). Still lacking 10 degrees flexion compared with left side and 12 degrees abduction. LTG Duration 04/30/22 One Impairment pain right shoulder and hip, left hand Short Term Goal (STG) Decrease pain by at least 50% with all usual activities 04/07/22 - GOAL MET STG Duration 02/25/22 Alf Goal (LTG) Decrease pain by at least 75% right shoulder and hip, left hand to allow him to resume all usual activities 04/07/22 Shoulder has improved at least 75%. Pt notes ~30% improvement with fingers. Hip is bothering him today. LTG Duration 04/30/22 Assessment Summary Assessment Improving shoulder and hip ROM , dec pain. Hasn't yet tried using finger splint during the day, PT recommended some wearing during the day for more rest to tendons. Physical Therapy Plan Frequency and Duration Frequency of Treatment 2x/Week Duration of Treatment 1 month Plan of Care Start Date 04/07/22 Plan of Care End Date 04/30/22 Therapeutic Interventions Therapeutic Interventions Aquatic Therapy,Gait Training, Home Exercise Program, Lymphedema Management,Manual Therapy,Neuromuscular Re- education,Patient/Caregiver Education,Self-Care/Home Management,Sensory Integration ,Soft Tissue Mobilization, Taping,Therapeutic Activities, Therapeutic Exercises Modalities Cold Pack/Ice Massage,Hot Packs,Ultrasound Next Visit Focus/Plan Next Note Type Treatment Note Next Visit Plan Continue core strengthening, shoulder ROM including AROM, postural correction and manual techniques, LE strengthening. Assess finger splint if obtained, continued treatment to trigger fingers left hand.
--- NOTE | 2022-04-20 12:48 | PT.OTN ---
Current Diagnoses Other chronic pain (04/20/22) Pain in right shoulder (04/20/22) Pain in right hip (04/20/22) Pain in left hip (04/20/22) Low back pain, unspecified (04/20/22) Physical Therapy Treatment Note PT-OP-A Visit Information Start: 01/25/22 16:56 Freq: Status: Active Protocol: Document 04/20/22 08:15 SAK (Rec: 04/20/22 09:03 [facility] [id number]) Out-Patient Physical Therapy Visit Information Visit Information Visit Type Treatment Note Visit Start Time 08:15 Visit Stop Time 16:15 Total Visit Minutes 60 Visit Number 13 Number of MORGUE LIBRARIAN Visits 0 PT-OP-B Current Condition Start: 01/25/22 16:56 Freq: Status: Active Protocol: Document 01/28/22 14:35 SAK (Rec: 01/28/22 15:18 SAK [id number]) Current Condition History of Current Condition Onset Date 1 1/2 years Current Complaints right shoulder and hip pain, left hand/fingers History of Current Condition No known accident, right hand dominant. No known injury. 4 months ago trigger finger left hand 3rd and 4th digits. 1 1/2 years ago right shoulder and hip for no known reason. Rides an exercise bike 45 min per day, walks 2-3 days per week about a mile. Daily use of heat for right shoulder pain. 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 Prior Treatments and Tests chiropractic for hip and back, short term relief aspirin, Tylenol. x-ray: nothing definitive Treatment Goals Patient/Caregiver Goals be able to registered nurse cardiac, open a jar be able to reach overhead and behind his back be able to walk with minimal to no pain in right hip and low back PT-OP-C Subjective Start: 01/25/22 16:56 Freq: Status: Active Protocol: Document 04/20/22 08:15 SAK (Rec: 04/20/22 09:03 [facility] [id number]) OP-PT Subjective Patient Comments Patient Comments Today is last visit, moving on Tuesday. Worst pain in right hip/low back. Pain 3/10 in am , better moving around. Hasn' t used pillow between knees or towel at side more than 1 night. PT-OP-G Mobility & Gait Start: 01/25/22 16:56 Freq: Status: Active Protocol: Document 01/26/22 12:59 [facility] (Rec: 01/27/22 18:03 [facility] [id number]) OP Gait Assessment Gait Gait Assistance Required: Independent Gait Deviations General Gait Pattern Antalgic Stair Climbing Evaluation Evaluation Level of Assist On Stairs Independent Technique/Endurance Stair Climbing Technique Step Over Step PT-OP-H Neuro Start: 01/25/22 16:56 Freq: Status: Active Protocol: Document 01/26/22 12:59 [facility] (Rec: 01/27/22 18:03 [facility] [id number]) Sensation Evaluation Gross Sensation Gross Sensation WNL Comments Summary Comments denies N/T PT-OP-J Posture/Palpation/Skin Start: 01/25/22 16:56 Freq: Status: Active Protocol: Document 01/26/22 12:59 [facility] (Rec: 01/27/22 18:03 [facility] [id number]) Posture Evaluation Position Standing Head/C-Spine Posture Forward Head T-Spine Posture Increased Kyphosis L-Spine Posture Increased Lordosis Shoulder Posture (L) Rounded,(R) Rounded Scapula Posture (L) Protracted,(R) Protracted Arm Posture (L) Internally Rotated,(R) Internally Rotated Hip Posture (L) Externally Rotated,(R) Externally Rotated PT-OP-K Range of Motion Start: 01/25/22 16:56 Freq: Status: Active Protocol: Document 01/26/22 12:59 [facility] (Rec: 01/26/22 13:38 [facility] [id number]) Cervical Spine Range of Motion Cervical Spine Active Testing Position Sitting Flexion 50 Extension 10 Rotation Left 70 Rotation Right 70 Lateral Flexion Left 20 Lateral Flexion Right 20 ROM Limitations Soft Tissue Tightness Lumbar Spine Range of Motion Lumbar Spine Active ROM Limitations Soft Tissue Tightness Comments mod decrease all motions Shoulder Goniometric Range of Motion Shoulder Right Shoulder ROM WFL No Testing Position Sitting Flexion 110 Extension 12 Abduction 105 External Rotation at 45 degrees 55 Abduction Internal Rotation Behind Back (text) L1 Left Active Shoulder ROM WFL Yes Finger Goniometric Range of Motion Finger ROM Limitations Finger ROM Limitations Pain Comments left 3rd and 4th MCP tenderness , limited into flexion by 50% Hip Goniometric Range of Motion Hip Right Flexion w/Knee Flexed 100 Straight Leg Raise 45 Extension 5 Abduction 40 Internal Rotation 30 External Rotation 45 Left Flexion w/Knee Flexed 100 Straight Leg Raise 50 Extension 5 Abduction 35 Internal Rotation 15 External Rotation 50 Hip ROM Limitations Hip ROM Limitations Soft Tissue Tightness Knee Goniometric Range of Motion Knee manjula Knee ROM WFL Yes PT-OP-M Strength Start: 01/25/22 16:56 Freq: Status: Active Protocol: Document 01/26/22 12:59 [facility] (Rec: 01/27/22 18:03 [facility] [id number]) Shoulder Strength Shoulder Manual Muscle Testing Right Flexion 4- Good- Extension 4 Good Abduction (C5) 4- Good- External Rotation 4- Good- Internal Rotation 4- Good- Left Flexion 5 Normal Extension 5 Normal Abduction (C5) 5 Normal External Rotation 4+ Good+ Internal Rotation 4+ Good+ Elbow/Forearm Strength Elbow and Forearm Manual Muscle Testing manjula Flexion (C6) 5 Normal Extension (C7) 5 Normal Finger/Thumb Strength Finger Manual Muscle Testing left 3rd and 4th Comments painful and strength 3+/5 Hip Strength Hip Manual Muscle Testing Right Flexion (L2) 4- Good- Extension (S1) 4- Good- Abduction 4- Good- External Rotation 4- Good- Internal Rotation 4- Good- Left Flexion (L2) 4 Good Extension (S1) 4 Good Abduction 4 Good External Rotation 4 Good Internal Rotation 4 Good Knee Strength Knee Manual Muscle Testing Right Flexion (S2) 4 Good Extension (L3) 4 Good Left Flexion (S2) 5 Normal Extension (L3) 5 Normal PT-OP-Q Treatments Start: 01/25/22 16:56 Freq: Status: Active Protocol: Document 04/20/22 08:15 [facility] (Rec: 04/20/22 09:03 [facility] [id number]) Cardio Equipment Treadmill Speed 2.3 Incline 0 Gym Equipment Cable Column (Body Solid) hamstring clurl Details manjula and unil Resistance 40,20 Reps/Time 10x2 hip ad Resistance 30 Reps/Time 10x2 hip ab Resistance 40 Reps/Time 10x2 lat pull Details plus shld shrug lower trap Resistance 20# Reps/Time 10x2 Shuttle Recovery Unilateral Squats Resistance 50 Shuttle Recovery Platform Stable Reps/Time 10x2 Bilateral Squats Resistance 87 Shuttle Recovery Platform Stable Reps/Time 10x2 Therapeutic Exercises Supine Exercises HS stretch Reps/Minutes 30 x 2 piriformis stretch Supine Exercise Name piriformis stretch - modified (opp foot planted) Side bilateral Reps/Minutes 30 SH x 4 Comments pt reports decreased tightness R hip Standing Exercises resisted GH extension Standing Exercise Name HEP resisted rows Standing Exercise Name HEP GH ER Standing Exercise Name HEP Manual Therapy Treatment Soft Tissue Mobilization R glutes Body Location R glutes Body Position Sidelying Comments Iliac crest scour and MFR glutes self massage Comments instruction in use of tennis/ raquet ball for self massage/ release right piriformis and lumbar paraspinals standing and supine PT-OP-R Modalities Start: 01/25/22 16:56 Freq: Status: Active Protocol: Document 04/20/22 08:15 [facility] (Rec: 04/20/22 09:03 [facility] [id number]) Hot Pack/Cold Pack Treatment Hot Pack Location right piriformis and low back Patient Position Sidelying Treatment Duration (minutes) 15 Patient Tolerance Good PT-OP-T Assessment and Plan Start: 01/25/22 16:56 Freq: Status: Active Protocol: Document 04/20/22 08:15 [facility] (Rec: 04/20/22 09:03 [facility] [id number]) Physical Therapy Assessment Goals Four Impairment patient unable to registered nurse cardiac objects or open a jar due to left hand pain Half-Way Goal (LTG) Patient to improve left hand function sufficient to allow him to registered nurse cardiac objects and open a jar with ease 04/07/22 - Has not tested, LTG Duration 03/28/22 Three Impairment limited walking due to right hip pain Impairment unable to take walks due to pain Half-Way Goal (LTG) Patient able to resume taking walks of 1-2 miles without an increase in right hip pain. 04/07/22 Pt walking a mile regularly and noting some improvement with activity. LTG Duration 04/30/22 Two Impairment unable to reach overhead or behind his back for purposes of ADL's Infant Teacher Goal (LTG) Improve right shoulder ROM to allow him to reach overhead and behind his back with ease for purposes of ADL's 04/07/22 - IR relatively equal to left side (T9-10). Still lacking 10 degrees flexion compared with left side and 12 degrees abduction. LTG Duration 04/30/22 One Impairment pain right shoulder and hip, left hand Short Term Goal (STG) Decrease pain by at least 50% with all usual activities 04/07/22 - GOAL MET STG Duration 02/25/22 Half-Way Goal (LTG) Decrease pain by at least 75% right shoulder and hip, left hand to allow him to resume all usual activities 04/07/22 Shoulder has improved at least 75%. Pt notes ~30% improvement with fingers. Hip is bothering him today. LTG Duration 04/30/22 Physical Therapy Plan Discharge Physical Therapy Discharge Comments patient moving to [place]
--- NOTE | 2022-04-22 12:48 | PT.OPDS ---
Current Diagnoses Other chronic pain (04/20/22) Pain in right shoulder (04/20/22) Pain in right hip (04/20/22) Pain in left hip (04/20/22) Low back pain, unspecified (04/20/22) Visit Care Team Role Provider Type Jeffery Schaefer MD Attending Provider Physician Family Provider Primary Care Provider Referring Provider Specialty: Family Practice Address: [address] [place] [address] Email: [email or web address] Visit Number Visit Number 13 Discharge Summary PT-OP-B Current Condition Start: 01/25/22 16:56 Freq: Status: Active Protocol: Document 01/28/22 14:35 SAK (Rec: 01/28/22 15:18 SAK [id number]) Current Condition History of Current Condition Onset Date 1 1/2 years Current Complaints right shoulder and hip pain, left hand/fingers History of Current Condition No known accident, right hand dominant. No known injury. 4 months ago trigger finger left hand 3rd and 4th digits. 1 1/2 years ago right shoulder and hip for no known reason. Rides an exercise bike 45 min per day, walks 2-3 days per week about a mile. Daily use of heat for right shoulder pain. 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 Prior Treatments and Tests chiropractic for hip and back, short term relief aspirin, Tylenol. 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 Worst pain in right hip/low back. Pain 3/10 in am , better moving around. Hasn' t used pillow between knees or towel at side more than 1 night. PT-OP-G Mobility & Gait Start: 01/25/22 16:56 Freq: Status: Active Protocol: Document 01/26/22 12:59 SAK (Rec: 01/27/22 18:03 [facility] [id number]) OP Gait Assessment Gait Gait Assistance Required: Independent Gait Deviations General Gait Pattern Antalgic Stair Climbing Evaluation Evaluation Level of Assist On Stairs Independent Technique/Endurance Stair Climbing Technique Step Over Step PT-OP-H Neuro Start: 01/25/22 16:56 Freq: Status: Active Protocol: Document 01/26/22 12:59 [facility] (Rec: 01/27/22 18:03 [facility] [id number]) Sensation Evaluation Gross Sensation Gross Sensation WNL Comments Summary Comments denies N/T PT-OP-J Posture/Palpation/Skin Start: 01/25/22 16:56 Freq: Status: Active Protocol: Document 01/26/22 12:59 [facility] (Rec: 01/27/22 18:03 [facility] [id number]) Posture Evaluation Position Standing Head/C-Spine Posture Forward Head T-Spine Posture Increased Kyphosis L-Spine Posture Increased Lordosis Shoulder Posture (L) Rounded,(R) Rounded Scapula Posture (L) Protracted,(R) Protracted Arm Posture (L) Internally Rotated,(R) Internally Rotated Hip Posture (L) Externally Rotated,(R) Externally Rotated PT-OP-K Range of Motion Start: 01/25/22 16:56 Freq: Status: Active Protocol: Document 01/26/22 12:59 [facility] (Rec: 01/26/22 13:38 [facility] [id number]) Cervical Spine Range of Motion Cervical Spine Active Testing Position Sitting Flexion 50 Extension 10 Rotation Left 70 Rotation Right 70 Lateral Flexion Left 20 Lateral Flexion Right 20 ROM Limitations Soft Tissue Tightness Lumbar Spine Range of Motion Lumbar Spine Active ROM Limitations Soft Tissue Tightness Comments mod decrease all motions Shoulder Goniometric Range of Motion Shoulder Right Shoulder ROM WFL No Testing Position Sitting Flexion 110 Extension 12 Abduction 105 External Rotation at 45 degrees 55 Abduction Internal Rotation Behind Back (text) L1 Left Active Shoulder ROM WFL Yes Finger Goniometric Range of Motion Finger ROM Limitations Finger ROM Limitations Pain Comments left 3rd and 4th MCP tenderness , limited into flexion by 50% Hip Goniometric Range of Motion Hip Right Flexion w/Knee Flexed 100 Straight Leg Raise 45 Extension 5 Abduction 40 Internal Rotation 30 External Rotation 45 Left Flexion w/Knee Flexed 100 Straight Leg Raise 50 Extension 5 Abduction 35 Internal Rotation 15 External Rotation 50 Hip ROM Limitations Hip ROM Limitations Soft Tissue Tightness Knee Goniometric Range of Motion Knee manjula Knee ROM WFL Yes PT-OP-M Strength Start: 01/25/22 16:56 Freq: Status: Active Protocol: Document 01/26/22 12:59 [facility] (Rec: 01/27/22 18:03 [facility] [id number]) Shoulder Strength Shoulder Manual Muscle Testing Right Flexion 4- Good- Extension 4 Good Abduction (C5) 4- Good- External Rotation 4- Good- Internal Rotation 4- Good- Left Flexion 5 Normal Extension 5 Normal Abduction (C5) 5 Normal External Rotation 4+ Good+ Internal Rotation 4+ Good+ Elbow/Forearm Strength Elbow and Forearm Manual Muscle Testing manjula Flexion (C6) 5 Normal Extension (C7) 5 Normal Finger/Thumb Strength Finger Manual Muscle Testing left 3rd and 4th Comments painful and strength 3+/5 Hip Strength Hip Manual Muscle Testing Right Flexion (L2) 4- Good- Extension (S1) 4- Good- Abduction 4- Good- External Rotation 4- Good- Internal Rotation 4- Good- Left Flexion (L2) 4 Good Extension (S1) 4 Good Abduction 4 Good External Rotation 4 Good Internal Rotation 4 Good Knee Strength Knee Manual Muscle Testing Right Flexion (S2) 4 Good Extension (L3) 4 Good Left Flexion (S2) 5 Normal Extension (L3) 5 Normal PT-OP-T Assessment and Plan Start: 01/25/22 16:56 Freq: Status: Active Protocol: Document 04/20/22 08:15 [facility] (Rec: 04/20/22 09:03 [facility] [id number]) Physical Therapy Assessment Goals Four Impairment patient 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 04/07/22 Pt walking a mile regularly and noting some improvement with activity. LTG Duration 04/30/22 Two Impairment unable to reach overhead or behind his back for purposes of ADL's Oracle Programmer Goal (LTG) Improve right shoulder ROM to allow him to reach overhead and behind his back with ease for purposes of ADL's 04/07/22 - IR relatively equal to left side (T9-10). Still lacking 10 degrees flexion compared with left side and 12 degrees abduction. LTG Duration 04/30/22 One Impairment pain right shoulder and hip, left hand Short Term Goal (STG) Decrease pain by at least 50% with all usual activities 04/07/22 - GOAL MET STG Duration 02/25/22 Oracle Programmer Goal (LTG) Decrease pain by at least 75% right shoulder and hip, left hand to allow him to resume all usual activities 04/07/22 Shoulder has improved at least 75%. Pt notes ~30% improvement with fingers. Hip is bothering him today. LTG Duration 04/30/22 Physical Therapy Plan Discharge Physical Therapy Discharge Comments patient moving to [place]
--- NOTE | 2022-07-22 15:06 | PT.OPDS ---
Current Diagnoses Other chronic pain (04/20/22) Pain in right shoulder (04/20/22) Pain in right hip (04/20/22) Pain in left hip (04/20/22) Low back pain, unspecified (04/20/22) Visit Care Team Role Provider Type Jeffery Schaefer MD Attending Provider Physician Family Provider Primary Care Provider Referring Provider Specialty: Family Practice Address: [address] [place] [address] Email: [email or web address] Visit Number Visit Number 13 Discharge Summary PT-OP-B Current Condition Start: 01/25/22 16:56 Freq: Status: Active Protocol: Document 01/28/22 14:35 SAK (Rec: 01/28/22 15:18 SAK [id number]) Current Condition History of Current Condition Onset Date 1 1/2 years Current Complaints right shoulder and hip pain, left hand/fingers History of Current Condition No known accident, right hand dominant. No known injury. 4 months ago trigger finger left hand 3rd and 4th digits. 1 1/2 years ago right shoulder and hip for no known reason. Rides an exercise bike 45 min per day, walks 2-3 days per week about a mile. Daily use of heat for right shoulder pain. 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 Prior Treatments and Tests chiropractic for hip and back, short term relief aspirin, Tylenol. 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 Worst pain in right hip/low back. Pain 3/10 in am , better moving around. Hasn' t used pillow between knees or towel at side more than 1 night. PT-OP-G Mobility & Gait Start: 01/25/22 16:56 Freq: Status: Active Protocol: Document 01/26/22 12:59 SAK (Rec: 01/27/22 18:03 [facility] [id number]) OP Gait Assessment Gait Gait Assistance Required: Independent Gait Deviations General Gait Pattern Antalgic Stair Climbing Evaluation Evaluation Level of Assist On Stairs Independent Technique/Endurance Stair Climbing Technique Step Over Step PT-OP-H Neuro Start: 01/25/22 16:56 Freq: Status: Active Protocol: Document 01/26/22 12:59 [facility] (Rec: 01/27/22 18:03 [facility] [id number]) Sensation Evaluation Gross Sensation Gross Sensation WNL Comments Summary Comments denies N/T PT-OP-J Posture/Palpation/Skin Start: 01/25/22 16:56 Freq: Status: Active Protocol: Document 01/26/22 12:59 [facility] (Rec: 01/27/22 18:03 [facility] [id number]) Posture Evaluation Position Standing Head/C-Spine Posture Forward Head T-Spine Posture Increased Kyphosis L-Spine Posture Increased Lordosis Shoulder Posture (L) Rounded,(R) Rounded Scapula Posture (L) Protracted,(R) Protracted Arm Posture (L) Internally Rotated,(R) Internally Rotated Hip Posture (L) Externally Rotated,(R) Externally Rotated PT-OP-K Range of Motion Start: 01/25/22 16:56 Freq: Status: Active Protocol: Document 01/26/22 12:59 [facility] (Rec: 01/26/22 13:38 [facility] [id number]) Cervical Spine Range of Motion Cervical Spine Active Testing Position Sitting Flexion 50 Extension 10 Rotation Left 70 Rotation Right 70 Lateral Flexion Left 20 Lateral Flexion Right 20 ROM Limitations Soft Tissue Tightness Lumbar Spine Range of Motion Lumbar Spine Active ROM Limitations Soft Tissue Tightness Comments mod decrease all motions Shoulder Goniometric Range of Motion Shoulder Right Shoulder ROM WFL No Testing Position Sitting Flexion 110 Extension 12 Abduction 105 External Rotation at 45 degrees 55 Abduction Internal Rotation Behind Back (text) L1 Left Active Shoulder ROM WFL Yes Finger Goniometric Range of Motion Finger ROM Limitations Finger ROM Limitations Pain Comments left 3rd and 4th MCP tenderness , limited into flexion by 50% Hip Goniometric Range of Motion Hip Right Flexion w/Knee Flexed 100 Straight Leg Raise 45 Extension 5 Abduction 40 Internal Rotation 30 External Rotation 45 Left Flexion w/Knee Flexed 100 Straight Leg Raise 50 Extension 5 Abduction 35 Internal Rotation 15 External Rotation 50 Hip ROM Limitations Hip ROM Limitations Soft Tissue Tightness Knee Goniometric Range of Motion Knee manjula Knee ROM WFL Yes PT-OP-M Strength Start: 01/25/22 16:56 Freq: Status: Active Protocol: Document 01/26/22 12:59 [facility] (Rec: 01/27/22 18:03 [facility] [id number]) Shoulder Strength Shoulder Manual Muscle Testing Right Flexion 4- Good- Extension 4 Good Abduction (C5) 4- Good- External Rotation 4- Good- Internal Rotation 4- Good- Left Flexion 5 Normal Extension 5 Normal Abduction (C5) 5 Normal External Rotation 4+ Good+ Internal Rotation 4+ Good+ Elbow/Forearm Strength Elbow and Forearm Manual Muscle Testing manjula Flexion (C6) 5 Normal Extension (C7) 5 Normal Finger/Thumb Strength Finger Manual Muscle Testing left 3rd and 4th Comments painful and strength 3+/5 Hip Strength Hip Manual Muscle Testing Right Flexion (L2) 4- Good- Extension (S1) 4- Good- Abduction 4- Good- External Rotation 4- Good- Internal Rotation 4- Good- Left Flexion (L2) 4 Good Extension (S1) 4 Good Abduction 4 Good External Rotation 4 Good Internal Rotation 4 Good Knee Strength Knee Manual Muscle Testing Right Flexion (S2) 4 Good Extension (L3) 4 Good Left Flexion (S2) 5 Normal Extension (L3) 5 Normal PT-OP-T Assessment and Plan Start: 01/25/22 16:56 Freq: Status: Active Protocol: Document 07/22/22 15:06 [facility] (Rec: 07/22/22 15:06 [facility] [id number]) Physical Therapy Plan Discharge Physical Therapy Discharge Reasons No Longer Attending PT Discharge Comments Patient moving to [place]
== END 2022-07-27 08:49 | disposition home or self-care (01) ==
LOC: PHYS 08:15
PROVIDERS: Family Provider Family Medicine; PCP Family Medicine; Referring Provider Family Medicine; Visit Provider Family Medicine
DX: M25.511 Pain in right shoulder (principal); M25.551 Pain in right hip; M25.552 Pain in left hip; M54.50 Low back pain, unspecified; G89.29 Other chronic pain
CPT/HCPCS: 97010; 97018; 97110; 97140; 97162; 97535